=== PATIENT | female | born 1970 | race Caucasian/White ===

== ENCOUNTER → 2017-11-29 | Outpatient (CLI) | payer BC, OTHER ==
[~2017-11-29] MED LIST: CALC500C70 PO; IBUP-1428 PO; LRT5 PO; SIMV20TA2 PO; TOPI100T20 PO; TOPI200T14 PO
--- NOTE | 2017-11-29 15:53 | DIAGNOSTIC IMAGING REPORT ---
ABD/PELVIS WITHOUT FOR STONE CLINICAL HISTORY: 46 years-old Female presenting with RLQ ABD PAIN, HEMATURIA, HX OF STONES. TECHNIQUE: Multidetector CT of the abdomen and pelvis was performed without the use of intravenous contrast. IV contrast: None. A dose lowering technique was used consistent with the principles of ALARA (as low as reasonably achievable). COMPARISON: None. CT DOSE (mGy.cm): The estimated cumulative dose is 1055.84 mGycm. FINDINGS: Concrete Block Maker topogram: Unremarkable. Lung bases: Minimal basilar opacities, likely atelectasis. Normal heart size. No pericardial or pleural effusion. Liver: Normal morphology. Normal density. Biliary: No gross biliary ductal dilatation allowing for noncontrast technique. Normal gallbladder. Pancreas: Normal noncontrast appearance. Spleen: Normal noncontrast appearance. Adrenal glands: Normal noncontrast appearance. Kidneys and ureters: Normal noncontrast appearance. No nephrolithiasis. No hydronephrosis. Normal ureters. Bladder: Incompletely evaluated secondary to underdistention. Pelvic organs: Uterus surgically absent. No adnexal masses. Bowel: Intramural fat deposition in the rectum through the descending colon, nonspecific. The appendix is normal. Intramural fat deposition also noted in the terminal ileum. No bowel obstruction. Peritoneal cavity: No free fluid or intraperitoneal gas. Lymph nodes: No gross lymphadenopathy allowing for noncontrast technique. Vasculature: Atherosclerosis of the normal caliber abdominal aorta. Abdominal wall: Normal. Musculoskeletal: Normal. IMPRESSION: 1. No nephrolithiasis or hydronephrosis. No acute intra-abdominal pathology. 2. Nonspecific intramural fat deposition in the colon and terminal ileum. This can be seen in the setting of obesity, chronic exposure steroids, or chronic inflammation such as inflammatory bowel disease. Electronically signed by: Clyde Metzger M.D. 11/29/2017 3:52 PM Dictated Date/Time: 11/29/2017 3:47 PM
== END | disposition home or self-care (01) ==
LOC: C.CTS 15:24
PROVIDERS: ATTEND Family Medicine
DX: D17.9 Benign lipomatous neoplasm, unspecified (principal); R10.31 Right lower quadrant pain; R31.9 Hematuria, unspecified

== ENCOUNTER 2023-11-02 17:56 | Inpatient (IN) ==
--- NOTE | 2023-11-02 18:03 | ED Triage Note ---
Date of Service November 02, 2023 Provider in Triage Author: Rose Mary Rao History of Present Illness This patient was briefly evaluated while in triage. An abbreviated physical exam was performed. This patient is a 52-year-old Female who presents to the ED for evaluation of chest pain and SOB. Feels like her heart is racing as well. Symptoms started 5 days ago. Symptoms getting progressively worse. Had left calf pain a couple days before the symptoms started. On 10/04/23 she had surgery on the left foot. She was diagnosed with "complicated bronchitis" yesterday by her PCP and started on Zithromax and prednisone. She was taking Lovenox for 2 weeks post-op, but not on blood thinners now. Physical Exam GENERAL: Non-toxic and in no acute distress. HEENT: Pupils equal. No obvious scleral icterus. HEART: Tachycardic LUNGS: Clear to auscultation. No accessory muscle use. ABDOMEN: Soft, nontender. NEURO: Alert and oriented. No obvious neurological deficits on quick neuro exam. MUSCULOSKELETAL: Left lower extremity in a walking boot. The patient does have some tenderness over the area of the left calf that was able to be palpated with the walking boot in place. No tenderness to palpation of the right lower ext remity. Initial orders for labs and / or imaging were placed and patient was placed in the waiting area until a bed is available. Please see further documentation for the full ED course. MDM / Impression Impression Impression: Pulmonary embolism Impression: Pulmonary embolism Qualifiers: Pulmonary embolism type: unspecified Chronicity: acute Acute cor pulmonale presence: unspecified Qualified Code(s): I26.99 - Other pulmonary embolism without acute cor pulmonale
--- NOTE | 2023-11-02 18:32 | Emergency Department Note ---
Impression & Plan Pulmonary embolism ADMIT ED Provider Note HPI: History obtained from patient The patient is a 52-year-old female with history of asthma who presents the emergency department today with a chief complaint of palpitations and shortness of breath as well as mild chest pain. Patient states that the symptoms have been relatively constant for the past 6 days. Patient states that her symptoms do not seem to correlate at all with exertion. Patient does note that she had surgery on her left ankle on October 03 and is currently in a walking boot. On arrival here to the ED the patient is tachycardic at 140, blood pressure is noted to be hypertensive at 160/125, patient is saturating well on room air on arrival. Patient is afebrile on arrival. ROS: - Per HPI Differential Diagnosis: Pulmonary embolism, arrhythmia to include SVT, atrial fibrillation with RVR, acute coronary syndrome, critical electrolyte abnormalities to include hyperkalemia, hypomagnesemia, acute kidney injury/dehydration, pneumonia, CHF exacerbation, amongst other potential pathologies. *Outpatient medications and allergy history reviewed. PE: General: Alert HEENT: Normocephalic, trachea midline Eyes: Extraocular eye movement is intact, no scleral erythema Pulmonary: Clear to auscultation bilaterally, no wheezing Cardio: Tachycardic rate with regular rhythm GI: Abdomen is soft to palpation : No suprapubic tenderness MSK: Postop walking boot in place to the left lower extremity, no evidence of trauma or malformation of the extremities, no edema Skin: No evidence of rash Neuro: Alert, no focal deficits Psychiatric: Cooperative INDEPENDENT INTERPRETATIONS: monitoring specialist: (As interpreted by myself): - An order was placed for continuous cardiac monitoring - Patient was noted to be in sinus tachycardia with a rate of 120 EKG: (As interpreted by myself): Rate: 122 Rhythm: Sinus tachycardia Intervals: Within normal limits ST changes: No ST elevation Time: 1829 Chest x-ray: (As interpreted by myself): No acute disease Interventions provided in ED: -IV fluid bolus, IV heparin drip with bolus Medical Decision Making: IV was established and lab work obtained, patient was placed on monitoring specialist. Lab work shows leukocytosis at 14.48, hemoglobin is normal, platelet count is normal, CMP does not show any critical findings, no evidence of acute kidney injury. High-sensitivity troponin level was obtained and is elevated at 1355. EKG per my interpretation shows sinus tachycardia without any acute ischemic changes. Chest x-ray does not show any evidence of acute disease. CT angiography of the chest was obtained that does show evidence of bilateral pulmonary emboli with concern for right heart strain per the interpreting radiologist. On my reassessment the patient remains hemodynamically stable, heart rate has improved into the low 100s, blood pressure is stable, patient remains saturating well on room air. I discussed the above findings with the patient, patient expressed an agreement to the plan and an understanding of her diagnosis. Patient was placed on heparin drip and was ordered an IV heparin bolus as well. I discussed the case with the on-call hospitalist, Dr. Barrera, who is in agreement with the above plan and the patient was placed for admission in stable condition. Consultants/Discussions held with other healthcare providers: -Hospitalist, Dr. Barrera Disposition discussion held by myself with: -Patient and significant other at the bedside * CRITICAL CARE TIME: ( 45 ) minutes -Management of patient with bilateral pulmonary emboli with evidence of right heart strain and elevated troponin requiring initiation of a heparin drip, time spent at the bedside, interpretation of EKG and diagnostic studies, discussion with other healthcare providers and arrangement of admission Diagnosis: 1. Bilateral pulmonary emboli with evidence of right heart strain, acute 2. Elevated high-sensitivity troponin level, acute 3. Tachycardia, acute 4. Leukocytosis, acute, nonspecific 5. Dyspnea, acute 6. Chest pain, acute Disposition: Admission Champ Shen DO Emergency Medicine Past Med/Surg History Social History Smoking Status: Never smoker Feels Safe at Home: Yes Allergies Allergies Allergy/AdvReac Type Severity Reaction Status Date / Time chlor-prep Allergy Unknown Rash Uncoded 11/02/23 20:14 Home Meds Home Medications Medication Instructions Recorded Confirmed albuterol sulfate 90 mcg/actuation 2 puff inhalation Q6 PRN Shortness 11/02/23 11/02/23 aerosol inhaler Of Breath Or Wheezing alendronate 70 mg tablet 70 mg PO WK 11/02/23 11/02/23 atorvastatin 20 mg tablet 20 mg PO QPM 11/02/23 11/02/23 azithromycin 250 mg tablet 25 mg PO UD 11/02/23 11/02/23 cholecalciferol (vitamin D3) 25 50 mcg PO QPM 11/02/23 11/02/23 mcg (1,000 unit) tablet (Vitamin D3) gabapentin 100 mg capsule 200 mg PO BID 11/02/23 11/02/23 meloxicam 15 mg tablet 15 mg PO DAILY PRN Pain 11/02/23 11/02/23 montelukast 10 mg tablet 10 mg PO PM 11/02/23 11/02/23 prednisone 20 mg tablet 40 mg PO DAILY 11/02/23 11/02/23 Results & Data (ED) Vital Signs Vital Signs - 24 hr 11/02/23 17:59 11/02/23 18:38 11/02/23 18:42 Temperature 36.4 C L Temperature Source Temporal Artery Scan Pulse Rate 140 H 109 H Pulse Rate [Apical] Pulse Rhythm Regular Pulse Rhythm [Apical] Pulse Strength [Apical] Respiratory Rate 20 Respiratory Effort / Characteristics Non-Labored Spontaneous Respiratory Depth Normal Respiratory Pattern Blood Pressure 160/125 H Blood Pressure [Right Arm] Blood Pressure Mean 136 Blood Pressure Mean [Right Arm] Pulse Oximetry 95 98 Oxygen Delivery Method Room Air Room Air Sepsis Recent Fever Within 48 Hours No Sepsis New/Unexplained Change in Mental Status No Sepsis Action Taken by Nursing No Action Required 11/02/23 20:19 11/02/23 20:36 11/02/23 22:28 Temperature Temperature Source Pulse Rate 87 Pulse Rate [Apical] 103 H 96 H Pulse Rhythm Pulse Rhythm [Apical] Regular Regular Pulse Strength [Apical] Normal Normal Respiratory Rate 18 18 Respiratory Effort / Characteristics Non-Labored Spontaneous Non-Labored Spontaneous Respiratory Depth Normal Normal Respiratory Pattern Regular Regular Blood Pressure Blood Pressure [Right Arm] 109/90 113/97 Blood Pressure Mean Blood Pressure Mean [Right Arm] 96 102 Pulse Oximetry 95 93 Oxygen Delivery Method Room Air Room Air Sepsis Recent Fever Within 48 Hours Sepsis New/Unexplained Change in Mental Status Sepsis Action Taken by Nursing 11/02/23 22:41 Temperature Temperature Source Pulse Rate Pulse Rate [Apical] 95 H Pulse Rhythm Pulse Rhythm [Apical] Regular Pulse Strength [Apical] Normal Respiratory Rate 19 Respiratory Effort / Characteristics Non-Labored Spontaneous Respiratory Depth Normal Respiratory Pattern Regular Blood Pressure Blood Pressure [Right Arm] 123/91 Blood Pressure Mean Blood Pressure Mean [Right Arm] 101 Pulse Oximetry 93 Oxygen Delivery Method Room Air Sepsis Recent Fever Within 48 Hours Sepsis New/Unexplained Change in Mental Status Sepsis Action Taken by Nursing Laboratory Data 11/02/23 18:35 11/02/23 18:35 Lab Results 11/02/23 11/02/23 11/02/23 Range/Units 18:35 18:43 19:23 WBC 14.48 H (4.8-10.8) K/ul RBC 5.33 (4.20-5.40) M/uL Hgb 15.5 (12.0-16.0) g/dl POC Hgb 16.3 H (12.0-16.0) g/dl Hct 46.5 (37.0-47.0) % POC Hct 48 H (37-47) % MCV 87.2 (80.0-100.0) fL MCH 29.1 (25.0-34.0) pg MCHC 33.3 (32.0-36.0) g/dL RDW Std Deviation 45.3 (36.4-46.3) fL RDW Coeff of Larissa 14.3 (11.5-14.5) % Plt Count 290 (130-400) K/uL MPV 9.4 (9.4-12.4) fL Immature Gran % (Auto) 1.0 % Neut % (Auto) 84.1 % Lymph % (Auto) 8.6 % Woods % (Auto) 6.1 % Eos % (Auto) 0.0 % Baso % (Auto) 0.2 % Neut # (Auto) 12.18 H (1.40-6.50) K/uL Lymph # (Auto) 1.24 (1.20-3.40) K/uL Woods # (Auto) 0.88 H (0.11-0.59) K/uL Eos # (Auto) 0.00 (0.00-0.50) K/uL Baso # (Auto) 0.03 (0.00-0.20) K/uL Immature Gran # (Auto) 0.15 (0.01-0.20) K/uL PT 10.1 (9.0-12.0) Seconds INR 0.9 (0.9-1.1) APTT 24 (21-31) Seconds PTT Ratio 0.9 POC Sodium 137 (135-144) mmol/L Sodium 136 (136-145) mmol/L POC Potassium 4.3 (3.3-5.0) mmol/L Potassium 4.3 (3.5-5.1) mmol/L POC Chloride 103 (101-112) mmol/L Chloride 103 (98-107) mmol/L Carbon Dioxide 26 (21-32) mmol/L POC Total CO2 24 (24-31) mmol/L Anion Gap 7 (3-11) POC Anion Gap 16.0 (16-25) mmol/L POC BUN 16 (7-18) mg/dl BUN 18 (6-23) mg/dl Creatinine 0.88 (0.6-1.2) mg/dl POC Creatinine 0.8 (0.6-1.3) mg/dl Est Cr Clr Drug Dosing 72.3 ml/min Est GFR ( Amer) 86.9 ml/min Est GFR (Non-Af Amer) 75.0 ml/min BUN/Creatinine Ratio 20.5 H (10-20) Glucose 176 H (70-99(Fasting)) mg/dl POC Glucose (other) 180 H (70-99) mg/dl Estimat Average Glucose 128 mg/dl Hemoglobin A1c 6.1 H (4.5-5.6) % Calcium 9.7 (8.6-10.3) mg/dl POC Ioniz Calcium Anisha 1.27 (1.12-1.32) mmol/l Magnesium 2.4 (1.7-2.4) mg/dl Total Bilirubin 0.4 (0.2-1.0) mg/dl AST 24 (13-39) U/L ALT 29 (7-52) U/L Alkaline Phosphatase 65 (34-104) U/L Troponin I High Sens 1355.0 H* (0-14) pg/ml Total Protein 7.5 (6.0-8.3) gm/dl Albumin 4.1 (3.4-5.0) gm/dl Globulin 3.4 (2.5-4.0) gm/dl Albumin/Globulin Ratio 1.2 (0.9-2) Lipase 28 (11-82) U/L Urine Color Yellow Urine Appearance Clear (Clear) Urine pH 6.5 (4.5-7.5) Ur Specific Magnolia 1.015 (1.000-1.030) Urine Protein Negative (Negative) Urine Glucose (UA) Negative (Negative) Urine Ketones Negative (Negative) Urine Blood Trace H (Negative) Urine Nitrite Negative (Negative) Urine Bilirubin Negative (Negative) Urine Urobilinogen Negative (Negative) Ur Leukocyte Esterase Negative (Negative) Urine WBC (Auto) 0-5 (0-5) /hpf Urine RBC (Auto) 0-2 (0-2) /hpf U Hyaline Cast (Auto) 0-2 (0-2) /lpf U Epithel Cells (Auto) 0-2 (0-2) /hpf Urine Bacteria (Auto) None Seen (None Seen) 11/02/23 Range/Units 20:30 WBC (4.8-10.8) K/ul RBC (4.20-5.40) M/uL Hgb (12.0-16.0) g/dl POC Hgb (12.0-16.0) g/dl Hct (37.0-47.0) % POC Hct (37-47) % MCV (80.0-100.0) fL MCH (25.0-34.0) pg MCHC (32.0-36.0) g/dL RDW Std Deviation (36.4-46.3) fL RDW Coeff of Larissa (11.5-14.5) % Plt Count (130-400) K/uL MPV (9.4-12.4) fL Immature Gran % (Auto) % Neut % (Auto) % Lymph % (Auto) % Woods % (Auto) % Eos % (Auto) % Baso % (Auto) % Neut # (Auto) (1.40-6.50) K/uL Lymph # (Auto) (1.20-3.40) K/uL Woods # (Auto) (0.11-0.59) K/uL Eos # (Auto) (0.00-0.50) K/uL Baso # (Auto) (0.00-0.20) K/uL Immature Gran # (Auto) (0.01-0.20) K/uL PT (9.0-12.0) Seconds INR (0.9-1.1) APTT (21-31) Seconds PTT Ratio POC Sodium (135-144) mmol/L Sodium (136-145) mmol/L POC Potassium (3.3-5.0) mmol/L Potassium (3.5-5.1) mmol/L POC Chloride (101-112) mmol/L Chloride (98-107) mmol/L Carbon Dioxide (21-32) mmol/L POC Total CO2 (24-31) mmol/L Anion Gap (3-11) POC Anion Gap (16-25) mmol/L POC BUN (7-18) mg/dl BUN (6-23) mg/dl Creatinine (0.6-1.2) mg/dl POC Creatinine (0.6-1.3) mg/dl Est Cr Clr Drug Dosing ml/min Est GFR ( Amer) ml/min Est GFR (Non-Af Amer) ml/min BUN/Creatinine Ratio (10-20) Glucose (70-99(Fasting)) mg/dl POC Glucose (other) (70-99) mg/dl Estimat Average Glucose mg/dl Hemoglobin A1c (4.5-5.6) % Calcium (8.6-10.3) mg/dl POC Ioniz Calcium Anisha (1.12-1.32) mmol/l Magnesium (1.7-2.4) mg/dl Total Bilirubin (0.2-1.0) mg/dl AST (13-39) U/L ALT (7-52) U/L Alkaline Phosphatase (34-104) U/L Troponin I High Sens 1472.0 H* (0-14) pg/ml Total Protein (6.0-8.3) gm/dl Albumin (3.4-5.0) gm/dl Globulin (2.5-4.0) gm/dl Albumin/Globulin Ratio (0.9-2) Lipase (11-82) U/L Urine Color Urine Appearance (Clear) Urine pH (4.5-7.5) Ur Specific Magnolia (1.000-1.030) Urine Protein (Negative) Urine Glucose (UA) (Negative) Urine Ketones (Negative) Urine Blood (Negative) Urine Nitrite (Negative) Urine Bilirubin (Negative) Urine Urobilinogen (Negative) Ur Leukocyte Esterase (Negative) Urine WBC (Auto) (0-5) /hpf Urine RBC (Auto) (0-2) /hpf U Hyaline Cast (Auto) (0-2) /lpf U Epithel Cells (Auto) (0-2) /hpf Urine Bacteria (Auto) (None Seen) Administered Medications Heparin Sodium/Dextrose (Heparin Sodium/Dextrose) 25,000 units in 500 mls @ 22 mls/hr IV .[id number] [facility]; Protocol Stop: 12/02/23 20:14 Last Admin: 11/02/23 20:13 Dose: 1,100 units/hr, 22 mls/hr Documented By: SWEETIE Co-signed By: RUTH Sodium Chloride (Nss) 1,000 mls @ 80 mls/hr IV .[id number] ONE Stop: 11/03/23 08:52 Last Admin: 11/02/23 20:33 Dose: 80 mls/hr Documented By: SWEETIE Discontinued Medications Heparin Sodium (Porcine) (Heparin Sod (Porcine) 1000 Unit/Ml) 5,000 units IV NOW ONE Stop: 11/02/23 20:16 Last Admin: 11/02/23 20:13 Dose: 5,000 units Documented By: SWEETIE Co-signed By: RUTH Heparin Sodium/Dextrose (Heparin Iv Adult Wt-Based Standard W/ Initial Bolus Protocol) 1 each IV NOW STA; Protocol Stop: 11/02/23 19:55 Last Admin: 11/02/23 20:16 Dose: Not Given Documented By: SWEETIE Ioversol (Optiray 320 125ml) 119 ml IV ONCE ONE Stop: 11/02/23 19:17 Last Admin: 11/02/23 19:17 Dose: 119 ml Documented By: LEILA Tramadol HCl (Tramadol Hcl 50 Mg Tablet) 25 mg PO NOW STA Stop: 11/02/23 22:42 Last Admin: 11/02/23 23:03 Dose: 25 mg Documented By: SWEETIE Imaging Data Radiologist's Impression: Chest CTA 11/02/23 18:03 CT angio chest PE protocol CLINICAL HISTORY: Chest Pain, eval for PE TECHNIQUE: Multidetector row helical CT of the chest was performed with angiographic protocol. Coronal and sagittal reformations were obtained. Coronal and sagittal MIPS were obtained from the axial data set and were submitted for review. Automated dose lowering techniques and/or adjustment according to patient size were utilized for this exam. CT DOSE: 823.43 mGy.cm Comparison: Comparison is made to chest radiograph 11/02/2023 FINDINGS: Lungs and pleura: Normal. Heart and pericardium: There is enlargement of the right ventricle and reversal of the interventricular septum concerning for right heart strain. Vessels: Multifocal pulmonary emboli are seen in the bilateral main pulmonary arteries and their branches. Mediastinum and jeff: Unremarkable. Chest wall and lower neck: Small thyroid nodules are noted which do not require follow-up by ACR criteria. Abdomen: Unremarkable. Bones: Unremarkable. IMPRESSION: Large bilateral pulmonary emboli are seen involving the main pulmonary arteries and branches. There are findings concerning for right heart strain. ACT 112: Negative or not required by law. Electronically signed by: Jono Sandoval M.D. 11/02/2023 7:57 PM Chest X-Ray 11/02/23 18:03 XR chest 1V portable CLINICAL HISTORY: Chest pain, nonspecific TECHNIQUE: Single frontal radiograph of the chest was obtained. Comparison: None available at the time of this dictation. FINDINGS: No lines and tubes are seen. The cardiomediastinal silhouette is normal. The lungs are clear. No evidence of pleural effusion or pneumothorax. IMPRESSION: No acute chest disease. ACT 112: Negative or not required by law. Electronically signed by: Jono Sandoval M.D. 11/02/2023 7:13 PM Discharge Plan Visit Data Chief Complaint: Cardiac Assessment Stated Complaint: TACHYCARDIA, SOB, CHEST TIGHT ED Provider: Champ Shen Discharge Problem: Pulmonary embolism Discharge Problem: Pulmonary embolism Qualifiers: Pulmonary embolism type: unspecified Chronicity: acute Acute cor pulmonale presence: unspecified Qualified Code(s): I26.99 - Other pulmonary embolism without acute cor pulmonale
[2023-11-02 18:55] LABS: iSTAT Creatinine 0.8 mg/dl (0.6-1.3); iSTAT Hemoglobin 16.3 g/dl (12.0-16.0); iSTAT Ionized Calcium 1.27 mmol/l (1.12-1.32); iSTAT Potassium 4.3 mmol/L (3.3-5.0)
[2023-11-02 19:04] LABS: Basophils # (auto) 0.03 K/uL (0.00-0.20); Basophils % (auto) 0.2 %; Hematocrit (blood only) 46.5 % (37.0-47.0); Hemoglobin 15.5 g/dl (12.0-16.0); Immature Granulocytes # (auto) 0.15 K/uL (0.01-0.20); Lymphocytes # (auto) 1.24 K/uL (1.20-3.40); Lymphocytes % (auto) 8.6 %; Mean Corpuscular Hemoglobin 29.1 pg (25.0-34.0); Mean Corpuscular Hgb Conc 33.3 g/dL (32.0-36.0); Mean Corpuscular Volume 87.2 fL (80.0-100.0); Mean Platelet Volume 9.4 fL (9.4-12.4); Monocytes # (auto) 0.88 K/uL (0.11-0.59); Monocytes % (auto) 6.1 %; Neutrophils # (auto) 12.18 K/uL (1.40-6.50); Neutrophils % (auto) 84.1 %; Platelet Count 290 K/uL (130-400); RDW Coefficient of Variation 14.3 % (11.5-14.5); RDW Standard Deviation 45.3 fL (36.4-46.3); Red Blood Count 5.33 M/uL (4.20-5.40); White Blood Count 14.48 K/ul (4.8-10.8)
--- NOTE | 2023-11-02 19:14 | XRay Report ---
XR chest 1V portable CLINICAL HISTORY: Chest pain, nonspecific TECHNIQUE: Single frontal radiograph of the chest was obtained. Comparison: None available at the time of this dictation. FINDINGS: No lines and tubes are seen. The cardiomediastinal silhouette is normal. The lungs are clear. No evid ence of pleural effusion or pneumothorax. IMPRESSION: No acute chest disease. ACT 112: Negative or not required by law. Electronically signed by: Jono Sandoval M.D. 11/02/2023 7:13 PM
[2023-11-02 19:15] LABS: INR 0.9 (0.9-1.1); Partial Thromboplastin Ratio 0.9; Partial Thromboplastin Time 24 Seconds (21-31); Prothrombin Time 10.1 Seconds (9.0-12.0)
[2023-11-02 19:17] LABS: Albumin Globulin Ratio 1.2 (0.9-2); Albumin Level 4.1 gm/dl (3.4-5.0); BUN Creatinine Ratio 20.5 (10-20); Bilirubin,Total 0.4 mg/dl (0.2-1.0); Calcium 9.7 mg/dl (8.6-10.3); Creatinine Clr Calc Pharmacy 72.3 ml/min; Est GFR (African American) 86.9 ml/min; Globulin 3.4 gm/dl (2.5-4.0); Magnesium 2.4 mg/dl (1.7-2.4); Potassium 4.3 mmol/L (3.5-5.1); Total Protein 7.5 gm/dl (6.0-8.3)
[2023-11-02] MEDS: OPTIRAY 320 125ml IV ONE (19:17)
--- NOTE | 2023-11-02 20:00 | CT Scan Report ---
CT angio chest PE protocol CLINICAL HISTORY: Chest Pain, eval for PE TECHNIQUE: Multidetector row helical CT of the chest was performed with angiographic protocol. Long l and sagittal reformations were obtained. Coronal and sagittal MIPS were obtained from the axial heath a set and were submitted for review. Automated dose lowering techniques and/or adjustment according to patient size were utilized for this exam. CT DOSE: 823.43 mGy.cm Comparison: Comparison is made to chest radiograph 11/02/2023 FINDINGS: Lungs and pleura: Normal. Heart and pericardium: There is enlargement of the right ventricle and reversal of the interventricul ar septum concerning for right heart strain. Vessels: Multifocal pulmonary emboli are seen in the bilateral main pulmonary arteries and their bran ches. Mediastinum and jeff: Unremarkable. Chest wall and lower neck: Small thyroid nodules are noted which do not require follow-up by ACR milad moore. Abdomen: Unremarkable. Bones: Unremarkable. IMPRESSION: Large bilateral pulmonary emboli are seen involving the main pulmonary arteries and branches. There a re findings concerning for right heart strain. ACT 112: Negative or not required by law. Electronically signed by: Jono Sandoval M.D. 11/02/2023 7:57 PM
[2023-11-02] MEDS ORDERED: HEPARIN SOD (PORCINE) 1000 UNIT/ML IV ONE (20:10)
[2023-11-02] MEDS: HEPARIN SODIUM/DEXTROSE 25,000 UNITS/500 ML BAG IV SCH (20:13)
[2023-11-02] MEDS: HEPARIN SOD (PORCINE) 1000 UNIT/ML IV ONE (20:13)
[2023-11-02] MEDS: Heparin IV Adult Wt-Based Standard w/ INITIAL Bolus Protocol IV STA (20:16)
[2023-11-02 20:33] LABS: Appearance Urine Clear (Clear); Bacteria Urine Automated None Seen (None Seen); Bilirubin Urine Negative (Negative); Blood Urine Trace (Negative); Cast Urine Automated 0-2 /lpf (0-2); Color Urine Yellow; Epithelial Cell Urine Auto 0-2 /hpf (0-2); Glucose Urine UA Negative (Negative); Ketones Urine Negative (Negative); Leukocyte Esterase Urine Negative (Negative); Nitrite Urine Negative (Negative); Protein Urine Negative (Negative); RBC Urine Automated 0-2 /hpf (0-2); Specific Gravity Urine 1.015 (1.000-1.030); Urobilinogen Urine Negative (Negative); WBC Urine Automated 0-5 /hpf (0-5); pH Urine 6.5 (4.5-7.5)
[2023-11-02] MEDS: SODIUM CHLORIDE 0.9% 1,000 ML IV ONE (20:33)
[2023-11-02 21:47] LABS: Estimated Average Glucose 128 mg/dl; Hemoglobin A1C 6.1 % (4.5-5.6)
[2023-11-02 22:03] LABS: Adenovirus PCR Not Detected (NotDetected); Bordetella parapertussis PCR Not Detected (NotDetected); Bordetella pertussis PCR Not Detected (NotDetected); Chlamydia pneumoniae PCR Not Detected (NotDetected); Coronavirus 229E PCR Not Detected (NotDetected); Coronavirus CoV-2 (COVID19)PCR Not Detected (NotDetected); Coronavirus HKU1 PCR Not Detected (NotDetected); Coronavirus NL63 PCR Not Detected (NotDetected); Coronavirus OC43PCR Not Detected (NotDetected); Human Metapneumovirus PCR Not Detected (NotDetected); Influenza A PCR Not Detected (NotDetected); Influenza B PCR Not Detected (NotDetected); Mycoplasma pneumoniae PCR Not Detected (NotDetected); Parainfluenza Virus 1 PCR Not Detected (NotDetected); Parainfluenza Virus 2 PCR Not Detected (NotDetected); Parainfluenza Virus 3 PCR Not Detected (NotDetected); Parainfluenza Virus 4 PCR Not Detected (NotDetected); Respiratory Syncytial VirusPCR Not Detected (NotDetected); Rhinovirus/Enterovirus PCR Not Detected (NotDetected)
--- NOTE | 2023-11-02 22:47 | History & Physical Report ---
Date of Service November 02, 2023 Assessment & Plan (1) Pulmonary embolism: Plan: PE with strain Initial occurrence Provoked event given recent ankle surgery Low risk on PESI score Rule out LE clot as source Troponin elevation secondary to above hyperlipidemia, statin Rx bronchial asthma, symptoms initially attributed to possible asthma exacerbation. Prediabetes, hemoglobin A1c of 6.1 today past tobacco abuse PCU IV heparin Follow troponin TTE re: PE with strain Follow LE venous Dopplers Pulmonary consult re: PE with strain Stop outpatient Z-Jovany and prednisone course prescribed for possible asthma exacerbation DVT prophylaxis. Heparin Full code Text document was generated using [employer] voice recognition software. It may contain grammatical or spelling errors. Kindly contact undersigned for clarification of any documentation item in q uestion. History of Present Illness Chief Complaint: chest pain, palpitations, shortness of breath Primary Care Provider: Dr. Maria Fernanda Pisano History obtained from patient, family, and records. Medical history significant for hyperlipidemia, bronchial asthma, prediabetes, IBS, neuropathy as per records, past tobacco abuse. Patient underwent left ankle surgery at the [facility] in [place] last month. Trying to keep active as possible despite some limitations. Patient completed 2 weeks of Lovenox injections for DVT prophylaxis as per her account. 1 week history of chest tightness, some wheezing, palpitations, and elevated heart rate at home. No actual cough symptoms as per patient. Patient thought it might be an unusual asthma attack. No unusual leg swelling. Patient seen at PCPs office yesterday. Prednisone and Z-Jovany course prescribed for possible complicated bronchitis. Patient consulted ER for worsening symptoms. IV heparin initiated at the ER for PE with strain. No prior personal history/known family history of blood clots as per patient. Medical History as above Surgical History : [place], foot surgery Family History : Negative blood clots; alcoholism, bronchial asthma, DM, stroke Personal/Social history : Past tobacco abuse, rare EtOH intake, office work Allergies Allergy/AdvReac Type Severity Reaction Status Date / Time chlor-prep Allergy Unknown Rash Uncoded 11/02/23 20:14 Home Medications Medication Instructions Recorded Confirmed Type albuterol sulfate 90 mcg/actuation 2 puff inhalation Q6 PRN Shortness 11/02/23 11/02/23 History aerosol inhaler Of Breath Or Wheezing alendronate 70 mg tablet 70 mg PO WK 11/02/23 11/02/23 History atorvastatin 20 mg tablet 20 mg PO QPM 11/02/23 11/02/23 History azithromycin 250 mg tablet 25 mg PO UD 11/02/23 11/02/23 History cholecalciferol (vitamin D3) 25 50 mcg PO QPM 11/02/23 11/02/23 History mcg (1,000 unit) tablet (Vitamin D3) gabapentin 100 mg capsule 200 mg PO BID 11/02/23 11/02/23 History meloxicam 15 mg tablet 15 mg PO DAILY PRN Pain 11/02/23 11/02/23 History montelukast 10 mg tablet 10 mg PO PM 11/02/23 11/02/23 History prednisone 20 mg tablet 40 mg PO DAILY 11/02/23 11/02/23 History apixaban 5 mg tablet 5 mg PO BID #74 tabs 11/03/23 Rx Past Med/Surg History Social History Smoking Status: Never smoker Second Hand Exposure: No; Do You Dip or Chew Tobacco: No; Tobacco Cessation Education Requested by Patient: No Hx Alcohol Use: Yes Hx Substance Use: No Preferred Language: Bhutanese Communication Ability: Effective Gym Teacher Required: No Beliefs That Will Affect Care: None Current Living Situation: Spouse Other Information That Helps Us Care for You: No Feels Safe at Home: Yes Safety Concerns: Feels Safe At This Time Assistive Devices: Brace/Splint/Immobilizer and Crutches Review of Systems Review of Systems: As per HPI, all other systems reviewed and negative Physical Exam Physical Exam: GENERAL: Comfortable, pleasant, obese, slightly anxious, no respiratory distress SKIN: Normal color, warm HEENT: [place] palpebral conjunctivae, no ptosis, moist buccal mucosa NECK : Supple, no tenderness CHEST : CTA, no tenderness HEART : RRR, no obvious murmurs ABDOMEN: Some distention, nontender EXTREMITIES : No LE swelling, minimal LLE tenderness, no other conspicuous deformities noted NEUROLOGIC : Coherent, no facial asymmetry, no other gross focality Results & Data Results & Data Vital Signs (Past 12 Hours) Vital Signs Temp Pulse Pulse Resp BP BP Pulse Ox 11/02/23 22:41 95 H 19 123/91 93 11/02/23 22:28 87 11/02/23 20:36 96 H 18 113/97 93 11/02/23 20:19 103 H 18 109/90 95 11/02/23 18:42 98 11/02/23 18:38 109 H 11/02/23 17:59 36.4 C L 140 H 20 160/125 H 95 O2 Del Method 11/02/23 22:41 Room Air 11/02/23 22:28 11/02/23 20:36 Room Air 11/02/23 20:19 Room Air 11/02/23 18:42 Room Air 11/02/23 18:38 11/02/23 17:59 Room Air Laboratory Results Laboratory Results WBC 14.48 K/ul (4.8-10.8) H 11/02/23 18:35 RBC 5.33 M/uL (4.20-5.40) 11/02/23 18:35 Hgb 15.5 g/dl (12.0-16.0) 11/02/23 18:35 POC Hgb 16.3 g/dl (12.0-16.0) H 11/02/23 18:43 Hct 46.5 % (37.0-47.0) 11/02/23 18:35 POC Hct 48 % (37-47) H 11/02/23 18:43 MCV 87.2 fL (80.0-100.0) 11/02/23 18:35 MCH 29.1 pg (25.0-34.0) 11/02/23 18:35 MCHC 33.3 g/dL (32.0-36.0) 11/02/23 18:35 RDW Std Deviation 45.3 fL (36.4-46.3) 11/02/23 18:35 RDW Coeff of Larissa 14.3 % (11.5-14.5) 11/02/23 18:35 Plt Count 290 K/uL (130-400) 11/02/23 18:35 MPV 9.4 fL (9.4-12.4) 11/02/23 18:35 Immature Gran % (Auto) 1.0 % 11/02/23 18:35 Neut % (Auto) 84.1 % 11/02/23 18:35 Lymph % (Auto) 8.6 % 11/02/23 18:35 Jack % (Auto) 6.1 % 11/02/23 18:35 Eos % (Auto) 0.0 % 11/02/23 18:35 Baso % (Auto) 0.2 % 11/02/23 18:35 Neut # (Auto) 12.18 K/uL (1.40-6.50) H 11/02/23 18:35 Lymph # (Auto) 1.24 K/uL (1.20-3.40) 11/02/23 18:35 Jack # (Auto) 0.88 K/uL (0.11-0.59) H 11/02/23 18:35 Eos # (Auto) 0.00 K/uL (0.00-0.50) 11/02/23 18:35 Baso # (Auto) 0.03 K/uL (0.00-0.20) 11/02/23 18:35 Immature Gran # (Auto) 0.15 K/uL (0.01-0.20) 11/02/23 18:35 PT 10.1 Seconds (9.0-12.0) 11/02/23 18:35 INR 0.9 (0.9-1.1) 11/02/23 18:35 APTT 24 Seconds (21-31) 11/02/23 18:35 PTT Ratio 0.9 11/02/23 18:35 POC Sodium 137 mmol/L (135-144) 11/02/23 18:43 Sodium 136 mmol/L (136-145) 11/02/23 18:35 POC Potassium 4.3 mmol/L (3.3-5.0) 11/02/23 18:43 Potassium 4.3 mmol/L (3.5-5.1) 11/02/23 18:35 POC Chloride 103 mmol/L (101-112) 11/02/23 18:43 Chloride 103 mmol/L (98-107) 11/02/23 18:35 Carbon Dioxide 26 mmol/L (21-32) 11/02/23 18:35 POC Total CO2 24 mmol/L (24-31) 11/02/23 18:43 Anion Gap 7 (3-11) 11/02/23 18:35 POC Anion Gap 16.0 mmol/L (16-25) 11/02/23 18:43 POC BUN 16 mg/dl (7-18) 11/02/23 18:43 BUN 18 mg/dl (6-23) 11/02/23 18:35 Creatinine 0.88 mg/dl (0.6-1.2) 11/02/23 18:35 POC Creatinine 0.8 mg/dl (0.6-1.3) 11/02/23 18:43 Est Cr Clr Drug Dosing 72.3 ml/min 11/02/23 18:35 Est GFR ( Amer) 86.9 ml/min 11/02/23 18:35 Est GFR (Non-Af Amer) 75.0 ml/min 11/02/23 18:35 BUN/Creatinine Ratio 20.5 (10-20) H 11/02/23 18:35 Glucose 176 mg/dl (70-99(Fasting)) H 11/02/23 18:35 POC Glucose (other) 180 mg/dl (70-99) H 11/02/23 18:43 Estimat Average Glucose 128 mg/dl 11/02/23 18:35 Hemoglobin A1c 6.1 % (4.5-5.6) H 11/02/23 18:35 Calcium 9.7 mg/dl (8.6-10.3) 11/02/23 18:35 POC Ioniz Calcium Anisha 1.27 mmol/l (1.12-1.32) 11/02/23 18:43 Magnesium 2.4 mg/dl (1.7-2.4) 11/02/23 18:35 Total Bilirubin 0.4 mg/dl (0.2-1.0) 11/02/23 18:35 AST 24 U/L (13-39) 11/02/23 18:35 ALT 29 U/L (7-52) 11/02/23 18:35 Alkaline Phosphatase 65 U/L (34-104) 11/02/23 18:35 Troponin I High Sens 1472.0 pg/ml (0-14) H* 11/02/23 20:30 Total Protein 7.5 gm/dl (6.0-8.3) 11/02/23 18:35 Albumin 4.1 gm/dl (3.4-5.0) 11/02/23 18:35 Globulin 3.4 gm/dl (2.5-4.0) 11/02/23 18:35 Albumin/Globulin Ratio 1.2 (0.9-2) 11/02/23 18:35 Lipase 28 U/L (11-82) 11/02/23 18:35 Urine Color Yellow 11/02/23 19:23 Urine Appearance Clear (Clear) 11/02/23 19:23 Urine pH 6.5 (4.5-7.5) 11/02/23 19:23 Ur Specific [place] 1.015 (1.000-1.030) 11/02/23 19:23 Urine Protein Negative (Negative) 11/02/23 19:23 Urine Glucose (UA) Negative (Negative) 11/02/23 19:23 Urine Ketones Negative (Negative) 11/02/23 19:23 Urine Blood Trace (Negative) H 11/02/23 19:23 Urine Nitrite Negative (Negative) 11/02/23 19:23 Urine Bilirubin Negative (Negative) 11/02/23 19:23 Urine Urobilinogen Negative (Negative) 11/02/23 19:23 Ur Leukocyte Esterase Negative (Negative) 11/02/23 19:23 Urine WBC (Auto) 0-5 /hpf (0-5) 11/02/23 19:23 Urine RBC (Auto) 0-2 /hpf (0-2) 11/02/23 19:23 U Hyaline Cast (Auto) 0-2 /lpf (0-2) 11/02/23 19:23 U Epithel Cells (Auto) 0-2 /hpf (0-2) 11/02/23 19:23 Urine Bacteria (Auto) None Seen (None Seen) 11/02/23 19:23 Adenovirus (PCR) Not Detected (NotDetected) 11/02/23 Unknown B. pertussis DNA (PCR) Not Detected (NotDetected) 11/02/23 Unknown B.parapertussis DNA PCR Not Detected (NotDetected) 11/02/23 Unknown C. pneumoniae DNA (PCR) Not Detected (NotDetected) 11/02/23 Unknown Coronavirus OC43 (PCR) Not Detected (NotDetected) 11/02/23 Unknown Coronavirus HKU1 (PCR) Not Detected (NotDetected) 11/02/23 Unknown Coronavirus 229E (PCR) Not Detected (NotDetected) 11/02/23 Unknown SARS-CoV-2 (PCR) Not Detected (NotDetected) 11/02/23 Unknown Coronavirus NL63 (PCR) Not Detected (NotDetected) 11/02/23 Unknown Human Metapneumovir PCR Not Detected (NotDetected) 11/02/23 Unknown Influenza Type A (PCR) Not Detected (NotDetected) 11/02/23 Unknown Influenza Type B (PCR) Not Detected (NotDetected) 11/02/23 Unknown M. pneumoniae (PCR) Not Detected (NotDetected) 11/02/23 Unknown Parainfluenza 1 (PCR) Not Detected (NotDetected) 11/02/23 Unknown Parainfluenza 2 (PCR) Not Detected (NotDetected) 11/02/23 Unknown Parainfluenza 3 (PCR) Not Detected (NotDetected) 11/02/23 Unknown Parainfluenza 4 (PCR) Not Detected (NotDetected) 11/02/23 Unknown RSV (PCR) Not Detected (NotDetected) 11/02/23 Unknown Entero/Rhino (PCR) Not Detected (NotDetected) 11/02/23 Unknown Impressions Chest CTA 11/02/23 18:03 CT angio chest PE protocol CLINICAL HISTORY: Chest Pain, eval for PE TECHNIQUE: Multidetector row helical CT of the chest was performed with angiographic protocol. Coronal and sagittal reformations were obtained. Coronal and sagittal MIPS were obtained from the axial data set and were submitted for review. Automated dose lowering techniques and/or adjustment according to patient size were utilized for this exam. CT DOSE: 823.43 mGy.cm Comparison: Comparison is made to chest radiograph 11/02/2023 FINDINGS: Lungs and pleura: Normal. Heart and pericardium: There is enlargement of the right ventricle and reversal of the interventricular septum concerning for right heart strain. Vessels: Multifocal pulmonary emboli are seen in the bilateral main pulmonary arteries and their branches. Mediastinum and jeff: Unremarkable. Chest wall and lower neck: Small thyroid nodules are noted which do not require follow-up by ACR criteria. Abdomen: Unremarkable. Bones: Unremarkable. IMPRESSION: Large bilateral pulmonary emboli are seen involving the main pulmonary arteries and branches. There are findings concerning for right heart strain. ACT 112: Negative or not required by law. Electronically signed by: Jono Sandoval M.D. 11/02/2023 7:57 PM Chest X-Ray 11/02/23 18:03 XR chest 1V portable CLINICAL HISTORY: Chest pain, nonspecific TECHNIQUE: Single frontal radiograph of the chest was obtained. Comparison: None available at the time of this dictation. FINDINGS: No lines and tubes are seen. The cardiomediastinal silhouette is normal. The lungs are clear. No evidence of pleural effusion or pneumothorax. IMPRESSION: No acute chest disease. ACT 112: Negative or not required by law. Electronically signed by: Jono Sandoval M.D. 11/02/2023 7:13 PM Diagnostic Findings EKG as per my interpretation : Rate 120, sinus tachycardia, LAD, LAFB, incomplete RBB, inferior infarct, no ischemia (1) Pulmonary embolism Acute cor pulmonale presence: unspecified Chronicity: acute Pulmonary embolism type: unspecified Qualified Code(s): I26.99 - Other pulmonary embolism without acute cor pulmonale
[2023-11-02] MEDS ORDERED: PROMETHAZINE HCL 12.5 MG in SODIUM CHLORIDE 0.9% 50 ML IV PRN (22:50)
[2023-11-02] MEDS ORDERED: LORazepam 0.5 MG TAB PO PRN (22:50)
[2023-11-02] MEDS ORDERED: ACETAMINOPHEN 325 MG TAB PO PRN (22:50)
[2023-11-02] MEDS: traMADol HCL 50 MG TABLET PO STA (23:03)
--- NOTE | 2023-11-02 23:28 | Ultrasound Report ---
Exam(s): US VENOUS LEFT LOWER EXTREMITY EXAM: US Duplex Left Lower Extremity Veins CLINICAL HISTORY: Reason for exam: Calf pain, recent surgery, eval DVT. TECHNIQUE: Real-time duplex ultrasound scan of the left lower extremity veins integrating B-mode two-dimensional vascular structure, Doppler spectral analysis, color flow Doppler imaging and compression. COMPARISON: None. FINDINGS: Deep veins: Minimally compressible left popliteal vein, peroneal veins and posterior tibial veins with internal echoes and trace flow consistent with nearly occlusive deep venous thrombosis. Superficial veins: Unremarkable. No thrombus in the visualized great saphenous vein. Soft tissues: No acute findings. No popliteal cyst. IMPRESSION: Nearly occlusive deep venous thrombosis involving the left lower extremity. Electronically signed by: Nelida Sparks MD 11/02/23 23:27 PM
[2023-11-03] MEDS: GABAPENTIN 100 MG CAP PO SCH (00:52)
[2023-11-03] MEDS: ACETAMINOPHEN 325 MG TAB PO PRN (01:41)
[2023-11-03 02:31] LABS: Basophils # (auto) 0.03 K/uL (0.00-0.20); Basophils % (auto) 0.2 %; Eosinophils # (auto) 0.01 K/uL (0.00-0.50); Eosinophils % (auto) 0.1 %; Hematocrit (blood only) 39.9 % (37.0-47.0); Immature Granulocytes # (auto) 0.13 K/uL (0.01-0.20); Immature Granulocytes % (auto) 0.8 %; Lymphocytes # (auto) 2.72 K/uL (1.20-3.40); Mean Corpuscular Hemoglobin 29.7 pg (25.0-34.0); Mean Corpuscular Hgb Conc 35.1 g/dL (32.0-36.0); Mean Corpuscular Volume 84.7 fL (80.0-100.0); Mean Platelet Volume 9.2 fL (9.4-12.4); Monocytes # (auto) 1.06 K/uL (0.11-0.59); Monocytes % (auto) 6.6 %; Neutrophils # (auto) 12.02 K/uL (1.40-6.50); Neutrophils % (auto) 75.3 %; Platelet Count 250 K/uL (130-400); RDW Coefficient of Variation 14.4 % (11.5-14.5); RDW Standard Deviation 44.1 fL (36.4-46.3); Red Blood Count 4.71 M/uL (4.20-5.40); White Blood Count 15.97 K/ul (4.8-10.8)
[2023-11-03 02:47] LABS: BUN Creatinine Ratio 20.7 (10-20); Calcium 8.4 mg/dl (8.6-10.3); Creatinine Clr Calc Pharmacy 108.7 ml/min; Est GFR (Non-African American) 105.2 ml/min; Potassium 3.8 mmol/L (3.5-5.1)
[2023-11-03 02:56] LABS: Troponin I High Sensitivity 871.6 pg/ml (0-14)
[2023-11-03] MEDS: traMADol HCL 50 MG TABLET PO PRN (03:11)
[2023-11-03 04:00] LABS: ANTI-Xa, UFH(UnfractionatedHep 1.14 IU/ml (0.3-0.7)
[2023-11-03 06:50] LABS: ANTI-Xa, UFH(UnfractionatedHep 0.48 IU/ml (0.3-0.7)
--- NOTE | 2023-11-03 07:16 | Hospitalist Progress Note ---
Date of Service November 03, 2023 Assessment & Plan (1) Pulmonary embolism: (2) DVT (deep venous thrombosis): (3) Asthma: Plan Patient with history of exercise induced asthma, prediabetes with neuropathy, IBS and recent left ankle procedure at [facility] on 10/03 who is admitted for gabriela luation and management of bilateral pulmonary emboli with concerns for right heart strain. Imaging revealed near occlusive DVT of left deep veins in lower extremity. #Bilateral Pulmonary Emboli with c/f right heart strain #Left Lower extremity DVT BNP 325 ECHO pending Heparin drip ongoing Pulmonary consult -Plan for 3-6 months AC upon discharge -Follow up ECHO Send for apixaban #Sinus Tachycardia #Elevated Troponin, likely demand ischemia 2/2 pulmonary emboli Troponin elevated 1472-->871.6 No acute concerns for ACS at this time #Asthma Stable albuterol prn #Prediabetes A1C 11/02 6.1% Counseled on lifestyle, reports improving exercise once ankle/mobility improved #Neuropathy Continue gabapentin 200mg BID #HLD continue statin DVT Heparin Monitor on Telemetry Admission and Anticipated Discharge Date Admission Date: November 02, 2023 Subjective NAEO Denies any chest pain, but notes significant SOB/LUNA at this time with palpitations States she had left ankle surgery on 10/03 and has been using knee scooter and recently transitioned to crutches on Wednesday Physical Exam Constitutional: WD/WN, vitals as above Respiratory: normal respiratory effort, lungs clear to auscultation Cardiovascular: tachycardia Skin: left lateral ankle surgical incision, well approximated, healing no signs of superimposed infection Results & Data Results & Data Vital Signs (Past 12 Hours) Vital Signs Temp Pulse Pulse Resp BP BP Pulse Ox 11/03/23 02:59 36.4 C L 88 16 127/85 94 11/02/23 23:50 36.5 C 88 16 136/90 93 11/02/23 23:05 96 11/02/23 23:03 90 18 125/92 95 11/02/23 22:41 95 H 19 123/91 93 11/02/23 22:28 87 11/02/23 20:36 96 H 18 113/97 93 11/02/23 20:19 103 H 18 109/90 95 O2 Del Method 11/03/23 02:59 Room Air 11/02/23 23:50 Room Air 11/02/23 23:05 Room Air 11/02/23 23:03 Room Air 11/02/23 22:41 Room Air 11/02/23 22:28 11/02/23 20:36 Room Air 11/02/23 20:19 Room Air Laboratory Results Short CBC 11/02/23 11/03/23 Range/Units 18:35 02:12 WBC 14.48 H 15.97 H (4.8-10.8) K/ul Hgb 15.5 14.0 (12.0-16.0) g/dl Hct 46.5 39.9 (37.0-47.0) % Plt Count 290 250 (130-400) K/uL BMP 11/02/23 11/03/23 18:35 02:12 Sodium 136 136 Potassium 4.3 3.8 Chloride 103 106 Carbon Dioxide 26 23 BUN 18 12 Creatinine 0.88 0.58 L D Glucose 176 H 142 H Calcium 9.7 8.4 L Liver Function 11/02/23 Range/Units 18:35 Total Bilirubin 0.4 (0.2-1.0) mg/dl AST 24 (13-39) U/L ALT 29 (7-52) U/L Alkaline Phosphatase 65 (34-104) U/L Albumin 4.1 (3.4-5.0) gm/dl Urine 11/02/23 Range/Units 19:23 Urine Color Yellow Urine Appearance Clear (Clear) Urine pH 6.5 (4.5-7.5) Ur Specific [place] 1.015 (1.000-1.030) Urine Protein Negative (Negative) Urine Glucose (UA) Negative (Negative) Diagnostic Findings Chest CTA 11/02/23 18:03 CT angio chest PE protocol CLINICAL HISTORY: Chest Pain, eval for PE TECHNIQUE: Multidetector row helical CT of the chest was performed with angiographic protocol. Coronal and sagittal reformations were obtained. Coronal and sagittal MIPS were obtained from the axial data set and were submitted for review. Automated dose lowering techniques and/or adjustment according to patient size were utilized for this exam. CT DOSE: 823.43 mGy.cm Comparison: Comparison is made to chest radiograph 11/02/2023 FINDINGS: Lungs and pleura: Normal. Heart and pericardium: There is enlargement of the right ventricle and reversal of the interventricular septum concerning for right heart strain. Vessels: Multifocal pulmonary emboli are seen in the bilateral main pulmonary arteries and their branches. Mediastinum and jeff: Unremarkable. Chest wall and lower neck: Small thyroid nodules are noted which do not require follow-up by ACR criteria. Abdomen: Unremarkable. Bones: Unremarkable. IMPRESSION: Large bilateral pulmonary emboli are seen involving the main pulmonary arteries and branches. There are findings concerning for right heart strain. ACT 112: Negative or not required by law. Electronically signed by: Jono Sandoval M.D. 11/02/2023 7:57 PM Chest X-Ray 11/02/23 18:03 XR chest 1V portable CLINICAL HISTORY: Chest pain, nonspecific TECHNIQUE: Single frontal radiograph of the chest was obtained. Comparison: None available at the time of this dictation. FINDINGS: No lines and tubes are seen. The cardiomediastinal silhouette is normal. The lungs are clear. No evidence of pleural effusion or pneumothorax. IMPRESSION: No acute chest disease. ACT 112: Negative or not required by law. Electronically signed by: Jono Sandoval M.D. 11/02/2023 7:13 PM Venous Doppler Study 11/02/23 18:03 Exam(s): US VENOUS LEFT LOWER EXTREMITY EXAM: US Duplex Left Lower Extremity Veins CLINICAL HISTORY: Reason for exam: Calf pain, recent surgery, eval DVT. TECHNIQUE: Real-time duplex ultrasound scan of the left lower extremity veins integrating B-mode two-dimensional vascular structure, Doppler spectral analysis, color flow Doppler imaging and compression. COMPARISON: None. FINDINGS: Deep veins: Minimally compressible left popliteal vein, peroneal veins and posterior tibial veins with internal echoes and trace flow consistent with nearly occlusive deep venous thrombosis. Superficial veins: Unremarkable. No thrombus in the visualized great saphenous vein. Soft tissues: No acute findings. No popliteal cyst. IMPRESSION: Nearly occlusive deep venous thrombosis involving the left lower extremity. Electronically signed by: Nelida Sparks MD 11/02/23 23:27 PM Medications Administered Home Medications Medication Instructions Recorded Confirmed Last Taken albuterol sulfate 90 mcg/actuation 2 puff inhalation Q6 PRN Shortness 11/02/23 11/02/23 11/02/23 aerosol inhaler Of Breath Or Wheezing alendronate 70 mg tablet 70 mg PO WK 11/02/23 11/02/23 10/30/23 atorvastatin 20 mg tablet 20 mg PO QPM 04/04/1811/02/23 11/01/23 azithromycin 250 mg tablet 25 mg PO UD 11/02/23 11/02/23 11/02/23 cholecalciferol (vitamin D3) 25 50 mcg PO QPM 11/02/23 11/02/23 11/01/23 mcg (1,000 unit) tablet (Vitamin D3) gabapentin 100 mg capsule 200 mg PO BID 11/02/23 11/02/23 11/02/23 am dose meloxicam 15 mg tablet 15 mg PO DAILY PRN Pain 11/02/23 11/02/23 Unknown montelukast 10 mg tablet 10 mg PO PM 11/02/23 11/02/23 11/01/23 prednisone 20 mg tablet 40 mg PO DAILY 11/02/23 11/02/23 11/02/23 Active Medications Generic Name Dose Route Start Last Admin Trade Name Freq PRN Reason Stop Dose Admin Acetaminophen 650 mg 11/02/23 23:50 11/03/23 01:41 Acetaminophen 325 Mg Tab PO 12/02/23 23:49 650 mg Q4H PRN Administration Pain or Fever Gabapentin 200 mg 11/02/23 23:50 11/03/23 00:52 Gabapentin 100 Mg Cap PO 12/02/23 23:49 200 mg BID ELISSA Administration Heparin Sodium/Dextrose 25,000 units in 500 mls @ 22 mls/hr 11/02/23 20:15 11/03/23 07:00 Heparin Sodium/Dextrose IV 12/02/23 20:14 800 units/hr .[id number] ELISSA 16 mls/hr Titration Protocol 1,100 UNITS/HR Sodium Chloride 1,000 mls @ 80 mls/hr 11/02/23 20:23 11/02/23 20:33 Nss IV 11/03/23 08:52 80 mls/hr .[id number] ONE Administration Tramadol HCl 25 - 50 mg 11/02/23 22:50 11/03/23 03:11 Tramadol Hcl 50 Mg Tablet PO 12/02/23 22:49 50 mg Q4H PRN Administration Pain (1) Pulmonary embolism Acute cor pulmonale presence: unspecified Chronicity: acute Pulmonary embolism type: unspecified Qualified Code(s): I26.99 - Other pulmonary embolism without acute cor pulmonale
--- NOTE | 2023-11-03 07:29 | Pulmonary Consultation ---
Date of Consultation November 03, 2023 Assessment & Plan (1) Pulmonary embolism: Acute cor pulmonale presence: unspecified Chronicity: acute Pulmonary embolism type: unspecified Qualified Code(s): I26.99 - Other pulmonary embolism without acute cor pulmonale (2) DVT (deep venous thrombosis): (3) Asthma: Plan IMPRESSION: 52-year-old female with a reported past medical history of asthma who presents in the setting of tachycardia and shortness of breath with findings of extensive bilateral pulmonary emboli and near occlusive LEFT lower extremity DVT. RECOMMENDATIONS: 1. Pulmonary emboli - CT findings consistent with extensive bilateral pulmonary emboli. Troponin modestly elevated likely in the setting of one-story mechanism. Will order BMP to assess any further heart strain. Echocardiogram pending at this time. Appropriately managed on heparin drip at this point. This would be considered a provoked event given recent surgical intervention and immobilization. Would recommend systemic anticoagulation with DOAC for 3 to 6 months, however given the extensive nature of the PE and DVT, would likely advocate for longer anticoagulation time period. Patient can eventually transition to DOAC therapy to be used in the outpatient setting. Given the extensive nature of the DVT in the extremity, consideration for vascular evaluat ion for their expert opinion of the extensive clot burden. Otherwise, patient is hemodynamically stable at this time. Would not recommend follow-up CTA in the outpatient setting unless the patient were to have a decline in status or persistent dyspnea. Will evaluate echocardiogram, however, unless there is extensive heart strain, no need for follow-up echocardiogram. If the echo does have suspicious findings of heart strain, etc., would recommend follow-up echocardiogram in 3 months in the outpatient setting. Extensive conversation had with patient at bedside. Certainly, if the patient were to acutely decompensate while in the hospital setting, would recommend tPA thrombolysis. This was reviewed with the patient who recognizes this as a potential treatment option for decompensation and is agreeable. 2. DVT - Nearly occlusive DVT of the LEFT lower extremity noted on ultrasound. Obviously treated with heparin drip at this time. Question utility of vascular surgery evaluation given extensive nature of clot and current extensive bilateral pulmonary emboli. 3. Asthma diagnosis - Patient with previous outpatient diagnosis of exercise- induced asthma. Rarely uses rescue inhaler. No need for evaluation or management of this at this point. 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 Thank you for allowing us to participate in the care of this pleasant patient. Pulmonary medicine will follow for now. Supervising Physician Co-Signing Physician Notes Patient seen and examined. EMR reviewed. Discussed with BIRGIT and agree with assessment plan as noted. The patient has no prior history of clotting or bleeding disorders. No family history of clots or sudden cardiac . She had symptoms for several days prior to coming to the emergency room. She does have evidence of RV strain on echocardiogram and elevated biomarkers so is at risk for clinical deterioration although she appears to be doing well currently. Will continue heparin infusion. Should the patient deteriorate, consideration for salvage therapy with systemic thrombolysis might be appropriate. We do not have catheter-based interventions at this facility. May be reasonable to reach out to a tertiary facility to discuss whether or not they feel catheter-based interventions are appropriate. Would recommend continuing heparin for at least 48 hours until the patient no longer becomes tachycardic with significant movement. Can then transition to oral anticoagulants such as a direct thrombin inhibitor. Would plan on repeating her echocardiogram in 3 months. Given the extensive nature of her clot with elevated biomarkers, could make a case for lifelong anticoagulat ion. At the very least she should get 6 months of anticoagulation and then see hematology for consideration of thrombophilia evaluation. Would hold off for now as it is not any spinning frame changer. The above recommendations and plan were discussed extensively with the patient and her and sister at the bedside. Questions were answered to the best my ability. History of Present Illness Reason for Consultation: pe strain Requesting Physician: Dr. Juárez Attending Physician: Elmira Lira MD History of Present Illness Patient is a 52-year-old female with a previous diagnosis of exercise-induced asthma while in the who still utilizes a rescue inhaler on occasion who presented to the emergency department on 10/29/2023 with complaints of tachycardia and shortness of breath with exertion. The patient had undergone tendon surgery revision to the LEFT ankle as well as plantar fasciitis surgery on 10/04/2023 at the [facility] in [place]. She was placed in a walking boot afterwards and had been on Lovenox for 2 weeks postoperatively. After this 2-week period, she was able to remove the boot occasionally and had not noticed any issues. Unfortunately, of last week she noticed some tachycardia with occasional shortness of breath. She was monitoring her heart rate with her watch device which noted heart rates as high as the 140s with her resting heart rate typically in the 60s. She denied any chest pain or pressure. No palpitations, dizziness, lightheadedness, or presyncope. The shortness of breath worsened and she developed a cough on Wednesday. She was seen at her primary care provider's office earlier this week and diagnosed with a case of complex bronchitis. She was started on azithromycin and prednisone. Unfortunately, her symptoms persisted and yesterday while working she noticed her heart rate remained elevated in the 140s while seated at her desk and working. She presented to the emergency department where she underwent evaluation including CTA which was diagnostic for bilateral pulmonary emboli with concerns for RIGHT heart strain. Troponin was elevated, but trending down at this time. She was initiated on a heparin drip and admitted for ongoing evaluation and management. Ultrasound of the extremities were obtained and shows a near occlusive DVT of the LEFT lower extremity. Upon evaluation in room 105, the patient is awake, alert, and oriented. She reports that she is feeling better, but still has shortness of breath with any movements. She denies any chest pain, palpitations, dizziness, or lighthea dedness. She reports no hemoptysis or pleuritic pain. Her heart rate has seemed to improve since admission. Patient denies prior history of blood clots or bleeding disorders. No family history of the same. She has had 5 surgeries on her feet with similar treatment and had never experienced DVT or PE in the past. Patient carries a prior diagnosis of exercise-induced asthma which she was concerned for asthma exacerbation during her symptoms of shortness of breath, however she admits that her symptoms did not improve with the utilization of her albuterol inhaler. Patient is managed by [facility] for her allergy symptoms and "asthma." Allergies Allergy/AdvReac Type Severity Reaction Status Date / Time chlor-prep Allergy Unknown Rash Uncoded 11/02/23 20:14 Home Medications Medication Instructions Recorded Confirmed Type albuterol sulfate 90 mcg/actuation 2 puff inhalation Q6 PRN Shortness 11/02/23 11/02/23 History aerosol inhaler Of Breath Or Wheezing alendronate 70 mg tablet 70 mg PO WK 11/02/23 11/02/23 History atorvastatin 20 mg tablet 20 mg PO QPM 11/02/23 11/02/23 History azithromycin 250 mg tablet 25 mg PO UD 11/02/23 11/02/23 History cholecalciferol (vitamin D3) 25 50 mcg PO QPM 11/02/23 11/02/23 History mcg (1,000 unit) tablet (Vitamin D3) gabapentin 100 mg capsule 200 mg PO BID 11/02/23 11/02/23 History meloxicam 15 mg tablet 15 mg PO DAILY PRN Pain 11/02/23 11/02/23 History montelukast 10 mg tablet 10 mg PO PM 11/02/23 11/02/23 History prednisone 20 mg tablet 40 mg PO DAILY 11/02/23 11/02/23 History apixaban 5 mg tablet 5 mg PO BID #74 tabs 11/03/23 Rx Patient History Social History Smoking Status: Never smoker Second Hand Exposure: No; Do You Dip or Chew Tobacco: No; Tobacco Cessation Education Requested by Patient: No Hx Alcohol Use: Yes Hx Substance Use: No Preferred Language: Kosovan Communication Ability: Effective 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 All else were negative. Physical Exam Physical Exam: VITAL SIGNS - Vital signs and nursing notes were reviewed. GENERAL - 52-year-old female appearing her stated age who is in no acute distress. Communicates well with provider and answers questions appropriately. SKIN - Without rashes or lesions. NOSE - Midline and without cyanosis. MOUTH/OROPHARYNX - Without perioral cyanosis. NECK - Neck with FROM. LUNGS - Chest wall evaluation demonstrates normal chest wall A:P diameter. Auscultation reveals clear breath sounds bilaterally without wheezes, rales, or rhonchi appreciated. CARDIAC - RRR with S1/S2. No murmur, rubs, or gallops appreciated. EXTREMITIES - Nail clubbing not present. No peripheral cyanosis. No pretibial edema present. +3/5 radial palpated throughout. Surgical incision sites to the LEFT foot/ankle clean, dry, and intact. PSYCH - A&Ox3 and cooperates fully with examiner. Pt is very pleasant and interacts well with examiner. Results & Data Results & Data Vital Signs (Past 12 Hours) Vital Signs Temp Pulse Pulse Resp BP BP Pulse Ox 11/03/23 02:59 36.4 C L 88 16 127/85 94 11/02/23 23:50 36.5 C 88 16 136/90 93 11/02/23 23:05 96 11/02/23 23:03 90 18 125/92 95 11/02/23 22:41 95 H 19 123/91 93 11/02/23 22:28 87 11/02/23 20:36 96 H 18 113/97 93 11/02/23 20:19 103 H 18 109/90 95 O2 Del Method 11/03/23 02:59 Room Air 11/02/23 23:50 Room Air 11/02/23 23:05 Room Air 11/02/23 23:03 Room Air 11/02/23 22:41 Room Air 11/02/23 22:28 11/02/23 20:36 Room Air 11/02/23 20:19 Room Air PG Care Time/CCT Total # of Minutes Spent Total Time Spent with Patient: Total time spent is greater than 50% in coordination of care (as documented) at patient's floor/unit and/or counseling patient: Coding Level of Care Code 23985 IN/OBS CONSULT LVL 4,60M Diagnoses Pulmonary embolism I26.99 Acute cor pulmonale presence: unspecified Chronicity: acute Pulmonary embolism type: unspecified DVT (deep venous thrombosis) I82.409 Asthma J45.909
--- OUTSIDE RECORDS SUMMARY | 2023-11-03 09:32 | External Medical Summary | Summary of Care ---
Author Name Unknown Organization [facility] Address [address] [place] [address] Phone [phone] Care Team Providers Care Trim Machine Adjuster Name Role Phone Maria Fernanda Pisano MD Primary Care Provid er Reason for Visit * Reason Comments Acute Asthma is flaring up ; symptoms started SOB Tightness in chest; slight wheezing and elevated heart rate Encounter Details Date Type Department Care Team (Latest Contact Info) Description 11/01/2023 11:20 AM EDT Office Visit [facility] [address] [place] [phone] Maria Fernanda Pisano MD [address], [place] [phone] Bronchitis, complicated*; Screening mammogram for breast cancer; Prediabetes; Age-related osteoporosis without current pathological fracture; Hyperlipidemia, unspecified hyperlipidemia type; Thyroid nodule Allergies Active Allergy Reactions Criticality Noted Date Comments Chlorhexidine Gluconate Itching,Rash 09/19/2013 documented as of this encounter (statuses as of 11/01/2023) Medications Medication Sig Dispensed Refills Start Date End Date Status montelukast (SINGULAIR) 10 MG TabletIndications :Bronchitis with bronchospasm Take 1 Tab by mouth daily. 30 Tab 11 9 Active Cetirizine HCl 10 MG Oral Capsule Take 1 Capsule by mouth in the morning. 0 9 Active Meloxicam 15 MG Oral Tablet Take 1 Tablet by mouth in the morning. for pain.. 30 Tab 11 1 Active Mometasone Furoate 50 MCG/ACT Nasal Suspension (Nasonex) Administer 2 Sprays into each nostril daily. 17 g 6 1 Active Additional Information Patient not taking.Reported on 10/22/2023 Albuterol Sulfate HFA 108 (90 Base) MCG/ACT Inhalation Aerosol Solution Inhale 2 Puffs by mouth every 4 hours as needed for Cough, Shortness of Breath or Wheezing (And prior exercise). 0 1 Active EPINEPHrine 0.3 MG/0.3ML Injection Solution Auto-injector (Autoinjector) For a severe reaction: Inject in outer thigh following instructions on package and go to the Emergency room. 2 Each 3 1 Active Atorvastatin Calcium 20 MG Oral Tablet (Lipitor)Indicati ons:Dyslipidemia Take 1 Tablet by mouth in the morning. 90 Tablet 1 3 Active Alendronate Sodium 70 MG Oral Tablet (Fosamax)Indicati ons:Age-related osteoporosis without current pathological fracture Take 1 Tablet by mouth once a week. with 8 oz. water 30 minutes before first meal of the day. Remain upright for 30 min after taking tablet. 15 Tablet 3 3 Active Vitamin D3 25 MCG (1000 UT) Oral Tablet (Vitamin D3) Take 2 Tablets by mouth at bedtime. 0 4 Active Gabapentin 100 MG Oral Capsule (Neurontin)Indica tions:Cervical radicular pain Take two capsules by mouth AM and two capsules by mouth PM. 120 Capsule 2 4 Active Womens 50+ Multi Vitamin/Min Oral Tablet Take by mouth. 0 Active predniSONE 20 MG Oral Tablet (Deltasone)Indica tions:Bronchitis, complicated Take 2 Tablets by mouth in the morning for 5 days. 10 Tablet 0 4 11/06/19 24 Active Azithromycin 250 MG Oral Tablet (Zithromax)Indica tions:Bronchitis, complicated Take 2 tabs by mouth on the first day, then 1 tab daily on days two through five 6 Tablet 0 4 11/06/19 24 Active Enoxaparin Sodium 40 MG/0.4ML Injection Solution Prefilled Syringe (Lovenox) Inject 40 mg under the skin in the morning and 40 mg before bedtime. Post op surgery . 0 11/01/19 24 Discontinued documented as of this encounter (statuses as of 11/01/2023) Active Problems Problem Noted Date Diagnosed Date Prediabetes 05/07/2023 Vitamin D deficiency 03/23/2022 Avulsion of ligament with bony fragment 03/23/20 Overview: Apr 28, 2023 Entered By: EVETTE GREENBERG Comment: History of left fibular ligament avulsion fracture Ankle instability 03/23/2022 Osteoporosis 03/23/2022 Irritable bowel syndrome 03/23/2022 Closed fracture of lateral malleolus 03/23/2022 Chronic instability of right knee 03/23/2022 Chondromalacia of right patella 03/23/2022 Asymptomatic varicose veins 03/23/2022 History of total hysterectomy 03/23/2022 Obesity, Class I, BMI 30.0-34.9 (see actual BMI) 03/23/2022 Allergic asthma 05/05/2021 Multiple food allergies 05/05/2021 Overview: Ingestion of watermelon, apples, pineapples, and engle and nuts seem to cause itching at the back of the throat and in ears. ? sensation throat swelling Dyslipidemia 10/28/2017 Calcium urolithiasis 02/13/2016 High risk for fracture due to osteoporosis by DE XA scan 10/30/2010 MENOPAUSE SURGICALLY INDUCED 06/06/2010 Hyperlipidemia, unspecified 07/25/2008 Overview: Per Lipid Taxonomy. Hereditary and idiopathic peripheral neuropathy 07/04/2008 Bronchospasm, exercise-induced 01/05/2005 Allergic rhinitis 12/17/2003 Overview: ICD-10 update of inactive term documented as of this encounter (statuses as of 11/01/2023) Resolved Problems Problem Noted Date Diagnosed Date Resolved Date Asthma in remission 05/05/2021 05/05/20 21 Asthma, mild persistent 05/05/202104/25 Asthma, moderate persistent 05/05/2021 05/05/2021 Asthma, severe persistent 05/05/2021 Asthma with severity to be determined 01/16/2010 05/05/2021 Overview: Per Asthma Taxonomy ICD-10 update of inactive term Dyslipidemia, goal to be determined 07/09/2009 10/30/2010 Overview: Per Lipid Taxonomy. Diarrhea 07/04/2008 08/18/2017 CHR ALLRG CONJUNCTIV NEC 01/05/2005 EXTRINSIC ASTHMA, UNSPEC 01/05/2005 AC SUPP OTITIS MEDIA, LEFT 07/08/2004 1 09/04/2007 ACUTE URI NOS 07/08/2004 07/04/2008 2ND DEG BURN - BILATERAL FEET 01/15/2003 07/04/2008 1ST DEG BURN - BILATERAL FEET 01/15/2003 07/04/2008 documented as of this encounter (statuses as of 11/01/2023) Immunizations Name Administration Dates Next Due COVID-19, mRNA, LNP-s, PF, B ooster, 100mcg/0.5mg (Moderna) 07/16/2021 Covid-19 Ad26, Single Dose (Bailee/J&J) 10/04/2020 H1N1 2009 Influenza, IM 05/28/2009 Pneumococcal Polysaccharide PPV23 (Pneumovax) 03/28/2020,10/01/2017 Seasonal Influenza Virus Vac cine, Unspecified Formulation 04/17/2019,05/22/2013,05/30/2011 Seasonal Influenza, PF, 6 M & above, IM , (FluLaval or Fluzone) 05/05/2021,05/29/2020 Seasonal Influenza, Recombin ant, RIV4, PF, (Flublock) 05/13/2017 Seasonal Influenza, Split, I IV3, With Preserve, Inj 04/17/2019,05/13/2017,05/07/2016,04/25,07/07/2011,05/09/2010,05/26/2009 ,05/24/2008 TD - Tetanus/Diptheria (ADULT) 11/23/1997 TD, Preservative Free 11/23/1997 TDAP (age 10 and older)(Boostrix) 10/01/2017,,09/12/2007 Varicella Zoster Vaccine (Adult) 06/11/2020 Zoster Vaccine Recombinant (Shingrix) 06/11/2020 ,02/28/2020,02/28/2020 documented as of this encounter Social History Tobacco Use Types Packs/Day Years Used Date Smoking Tobacco: Former Cigarettes 0.5 2 0 07/26/1987 - 07/26/1989 Smokeless Tobacco: Former Quit: 1989 Comments:no passive smoke ex posure Alcohol Use Standard Drinks/Week Comments Yes 0 (1 standard drink = 0.6 oz pur e alcohol) rare; 1-2 drinks/month AUDIT-C Answer Date Recorded Q1: How often do you have a drink containing alc ohol? 2-4 times a month 05/05/2021 Q2: How many drinks containi ng alcohol do you have on a typical day when you are drinking? Not asked 05/05/2021 Q3: How often do you have si x or more drinks on one occasion? Not asked 05/05/2021 PHQ-2 Answer Date Recorded PHQ Adult Total Score 0 03/23/2022 Hunger Vital Sign Answer Date Recorded Within the past 12 months, y ou worried that your food would run out before you got the money to buy more. Never true 05/06/20 23 Within the past 12 months, t he food you bought just didn't last and you didn't have money to get more. Never true 05/06/2023 Sex and Gender Information Value Date Recorded Sex Assigned at Female 05/06/2023 2:18 PM EDT Gender Identity Female 05/06/2023 2:18 PM EDT Sexual Orientation Straight 05/06/2023 2: 18 PM EDT Job Start Date Occupation Industry Not on file Not on file Not on file documented as of this encounter Last Filed Vital Signs Vital Sign Reading Time Taken Comments Blood Pressure 108/82 11/01/2023 11:27 AM EDT Pulse 66 11/01/2023 11:27 AM EDT Temperature 36.6 C (97.8 F) 11/01/2023 11:27 AM E DT Respiratory Rate 18 11/01/2023 11:27 AM EDT Oxygen Saturation 98% 11/01/2023 11:27 AM EDT Inhaled Oxygen Concentration - - Weight 79.8 kg (176 lb) 11/01/2023 11:27 AM EDT Height 158.2 cm (5' 2.3") 11/01/2023 11:27 AM ED T Body Mass Index 31.88 11/01/2023 11:27 AM EDT documented in this encounter Progress Notes * Maria Fernanda Pisano MD - 11/01/2023 11:40 AM EDT Images from the original note were not included. ASSESSMENT / PLAN: Gerri Shine is a 52 year old female with PMHx polyarthropathy / osteoporosis / allergic rhinitis and asthma / dyslipidemia / food allergies keeps Epi pen handy - here for recheck Prediabetes A1C remains stable at 6.2 Reviewed diet / exercise and medication options - she would like continue to try diet/exercise and defer medication at this time Has a nutrition dance coach HLD Cont statin Osteoporosis Follows with Rheum Alendronate, Vit D and calcium Asthma Flare up No s/s pna Zpack, pred, add steroid containing nasal spray to regimen of singulair, zyrtec and rescue inhaler Screenings/anticipatory guidance reviewed include if applicable nutrition, family planning/contraception, physical activity, healthy weight, injury prevention, misuse of tobacco, alcohol and drugs, sexual behavior and STDs, dental health, mental health, immunizations, age appropriate screenings: next colon 2026 - (5yr recall given FH father with colon ca) s/p WESTLEY - had been on premarin - was taken off of this Mammo due - order placed Follow Up: Return in about 6 months (around 05/02/2024). Bronchitis, complicated (Primary) - predniSONE 20 MG Oral Tablet (Deltasone); Take 2 Tablets by mouth in the morning for 5 days. - Azithromycin 250 MG Oral Tablet (Zithromax); Take 2 tabs by mouth on the first day, then 1 tab daily on days two through five Screening mammogram for breast cancer - MAMMOGRAM SCREENING JOEY BILATERAL; Future; Expected date: 11/01/2023 Follow Up: Return in about 6 months (around 05/02/2024). If needed, prefers contact by: Ok to leave message on phone: SUBJECTIVE: Nursing Notes: Lula Parra LPN 11/01/23 1134 Signed The patient has been properly identified by confirmation of name and date of . Chief Complaint Patient presents with Acute Asthma is flaring up; symptoms started SOB Tightness in chest; slight wheezing and elevated heart rate HPI: Gerri Shine is a 52 year old female. Here for recheck. Asthma flaring up - using singulair / zyrtec / rescue inhaler daily No smoking/no pets Has done steroids before with benefit [facility] Thyroid nodule biopsy result: Diagnosis: (01) RIGHT THYROID GLAND, FNA: NEGATIVE FOR MALIGNANT CELLS. BETHESDA CATEGORY II. SPECIMEN CONSISTS OF BENIGN FOLLICULAR CELLS, HEMOSIDERIN-LADEN MACROPHAGES, COLLOID, AND BLOOD. THIS PATTERN IS CONSISTENT WITH A BENIGN FOLLICULAR NODULE. Reviewed sources 1- Patient Active Problem List Diagnosis Code Allergic rhinitis J30.9 Bronchospasm, exercise-induced J45.990 Hereditary and idiopathic peripheral neuropathy G60.9 Hyperlipidemia, unspecified E78.5 MENOPAUSE SURGICALLY INDUCED Z78.0 High risk for fracture due to osteoporosis by DEXA scan M81.0 Dyslipidemia E78.5 Allergic asthma J45.909 Multiple food allergies Z91.018 Vitamin D deficiency E55.9 Avulsion of ligament with bony fragment T14.8XXA Ankle instability M25.373 Osteoporosis M81.0 Irritable bowel syndrome K58.9 Closed fracture of lateral malleolus S82.63XA Chronic instability of right knee M23.51 Chondromalacia of right patella M22.41 Asymptomatic varicose veins I83.90 History of total hysterectomy Z90.710 Calcium urolithiasis N20.9 Obesity, Class I, BMI 30.0-34.9 (see actual BMI) E66.9 Prediabetes R73.03 Current Outpatient Medications Medication Sig Dispense Refill montelukast (SINGULAIR) 10 MG Tablet Take 1 Tab by mouth daily. 30 Tab 11 Cetirizine HCl 10 MG Oral Capsule Take 1 Capsule by mouth in the morning. Meloxicam 15 MG Oral Tablet Take 1 Tablet by mouth in the morning. for pain.. 30 Tab 11 Albuterol Sulfate HFA 108 (90 Base) MCG/ACT Inhalation Aerosol Solution Inhale 2 Puffs by mouth every 4 hours as needed for Cough, Shortness of Breath or Wheezing (And prior exercise). EPINEPHrine 0.3 MG/0.3ML Injection Solution Auto-injector (Autoinjector) For a severe reaction: Inject in outer thigh following instructions on package and go to the Emergency room. 2 Each 3 Atorvastatin Calcium 20 MG Oral Tablet (Lipitor) Take 1 Tablet by mouth in the morning. 90 Tablet 1 Alendronate Sodium 70 MG Oral Tablet (Fosamax) Take 1 Tablet by mouth once a week. with 8 oz. water30 minutes before first meal of the day. Remain upright for 30 min after taking tablet. 15 Tablet 3 Vitamin D3 25 MCG (1000 UT) Oral Tablet (Vitamin D3) Take 2 Tablets by mouth at bedtime. Gabapentin 100 MG Oral Capsule (Neurontin) Take two capsules by mouth AM and two capsules by mouth PM. 120 Capsule 2 Womens 50+ Multi Vitamin/Min Oral Tablet Take by mouth. predniSONE 20 MG Oral Tablet (Deltasone) Take 2 Tablets by mouth in the morning for 5 days. 10 Tablet 0 Azithromycin 250 MG Oral Tablet (Zithromax) Take 2 tabs by mouth on the first day, then 1 tab dailyon days two through five 6 Tablet 0 Mometasone Furoate 50 MCG/ACT Nasal Suspension (Nasonex) Administer 2 Sprays into each nostril daily. (Patient not taking: Reported on 10/22/2023) 17 g 6 No current facility-administered medications for this visit. OBJECTIVE: BP 108/82 | Pulse 66 | Temp 36.6 C (97.8 F) | Resp 18 | Ht 1.582 m (5' 2.3") | Wt 79.8 kg (176 lb) | LMP 08/26/1996 | SpO2 98% | BMI 31.88 kg/m | BSA 1.87 m Vitals reviewed and is normotensive / afebrile / and not tachycardic General: No acute distress. Neuro: Alert Pleasant & interactive. Respiratory: Good inspiratory effort, no labored breathing. CTAB CV: RRR no M R G HEENT: Conjunctivae appear clear. No swelling noted face or lips. Skin: No rash visible on exposed skin areas, normal coloration & appears dry. Psych: Normal affect. Fluent speech. Maria Fernanda Pisano MD [address] [phone] There are no Patient Instructions on file for this visit. documented in this encounter Nursing Notes * Lula Parra LPN - 11/01/2023 11:34 AM EDT The patient has been properly identified by confirmation of name and date of . Chief Complaint Patient presents with Acute Asthma is flaring up; symptoms started SOB Tightness in chest; slight wheezing and elevated heart rate documented in this encounter Plan of Treatment Upcoming Encounters Date Type Department Care Team (Late st Contact Info) Description 12/24/2023 11:00 AM EDT Telemedicine [facility], [facility] [address] [facility] [place] [address] Patricia Magana PA-C [address] [place] [address] 01/12/2024 8:30 AM EDT Imaging Radiology [facility] [address] [facility] [place] [address] 05/05/2024 11:40 AM EDT Office Visit [facility] [address] [place] [address] Maria Fernanda Pisano MD [address] [place] [address] Scheduled Orders Name Type Priority Associated Diagnoses Orde r Schedule MAMMOGRAM SCREENING JOEY BILATERAL Medical Imaging Routine Screening mammogram for breast cancer Expected: 11/01/2023, Expires: 11/30/2024 Scheduled Procedures Name Priority Associated Diagnoses Date/Ti me COLONOSCOPY FLEXIBLE PROXIMA L DIAGNOSTIC Recall Family history of colon cancer Health Maintenance Due Date Last Done Comments HIV Screening 1984 Hepatitis C Screening 12/11/1987 Hepatitis B (1 of 3 - 19+ 3-dose series) 1988 Pneumococcal Vaccine: Pediatrics (0 to 5 Years) and At-Risk Patients (6 to 64 Years) (2 of 2 - PCV) 03/28/2021 03/28/2020, 10/01/2017 Depression Screening 03/23/2023 03/23/2022 COVID-19 Vaccine (3 - 24 season) 2023 07/16/2021, 10/04/2020 Mammogram 10/22/2023 10/21/2022, 09/24, 08/02/2020, Additional history exists Influenza Vaccine (FLU shot) (Season Ended) 2024 05/05/2021, 05/29/2020, 04/17/2019, Additional history exists HbA1c 04/30/2024 04/30/2023, 02/26/2020 DXA Scan 06/10/2025 06/10/2023, 04/25, 09/28/2017, Additional history exists COLONOSCOPY-EVERY 5 YRS AGES 18-100 06/24/2026 06/24/2021, 06/24/2021, 07/23/2010 DTaP,Tdap,and Td Vaccines (4 - Td or Tdap) 10/02/2027 10/01/2017, 03/09/2008, 09/12/2007, Additional history exists Lipid Panel 04/30/2028 04/30/2023, 0809/2019, 07/11/2018, Additional history exists Zoster Vaccines Completed 06/11/2020, 05/26, 02/28/2020, Additional history exists VITAMIN D LEVEL ONCE IN A LIFETIME-USE SMARTSET# [id number] Completed 07/23/2023, 07/11/2018, 06/30/2011 GARDASIL-HPV IMMUNIZATION SERIES Aged Out No longer eligible based on patient's age to complete this topic MENINGOCOCCAL (MENACTRA/MENVEO) Aged Out No longer eligible based on patient's age to complete this topic documented as of this encounter Medical Devices Implanted Type Area On Site Nurse Device Identifier Shelf Expiration Date Model / Serial / Lot Barnard Sm Joint [id number] - [id number] Implanted:Qty: 2 on 01/19/2019 by Nimisha Chin DPM at OR [facility] Right: Foot [employer] 05/25/2020 [id number] / / [id number] Internal Brace Ligament Augmentaion Repair Implanted:Qty: 1 on 01/19/2019 by Nimisha Chin DPM at OR [facility] Right: Foot 11/22/2020 [id number] / / [id number] documented as of this encounter Visit Diagnoses Diagnosis Bronchitis, complicated- Primary Bronchitis, not specified as acute or chronic Screening mammogram for breast cancer Prediabetes Other abnormal glucose Age-related osteoporosis without current pathological fracture Senile osteoporosis Hyperlipidemia, unspecified hyperlipidemia type Thyroid nodule Nontoxic uninodular goiter documented in this encounter Care Teams Trim Machine Adjuster Relationship Specialty Start Date End Date Maria Fernanda Pisano MD [address], [place] [phone] PCP - General Family Medicine 03/23/22 documented as of this encounter
--- OUTSIDE RECORDS SUMMARY | 2023-11-03 09:32 | External Medical Summary | Summary of Care ---
Author Name Unknown Organization [facility] Address [address] [place] [facility] [address] Phone [phone] Care Team Providers Care Marketing Services Rep Name Role Phone Maria Fernanda Pisano MD Primary Care Provid er Encounter Details Date Type Department Care Team (Late st Contact Info) Description 07/22/2023 Orders Only [facility] [address] [place] [address] Maria Fernanda Pisano MD [address] [place] [address] Allergies Active Allergy Reactions Criticality Noted Date Comments Chlorhexidine Gluconate Itching,Rash 09/19/2013 documented as of this encounter (statuses as of 08/06/2023) Medications Medication Sig Dispensed Refills Start Date End Date Status montelukast (SINGULAIR) 10 MG TabletIndications:B ronchitis with bronchospasm Take 1 Tab by mouth daily. 30 Tab 11 07/27/2018 Active Cetirizine HCl 10 MG Oral Capsule Take 1 Capsule by mouth in the morning. 0 01/17/2019 Active Meloxicam 15 MG Oral Tablet Take 1 Tab by mouth daily. for pain. 30 Tab 11 03/24/2021 Active Mometasone Furoate 50 MCG/ACT Nasal Suspension (Nasonex) Administer 2 Sprays into each nostril daily. 17 g 6 05/05/2021 Active Additional Information Patient not taking.Reported on 07/23/2023 Albuterol Sulfate HFA 108 (90 Base) MCG/ACT Inhalation Aerosol Solution Inhale 2 Puffs by mouth every 4 hours as needed for Cough, Shortness of Breath or Wheezing (And prior exercise). 0 05/05/2021 Active EPINEPHrine 0.3 MG/0.3ML Injection Solution Auto-injector (Autoinjector) For a severe reaction: Inject in outer thigh following instructions on package and go to the Emergency room. 2 Each 3 05/05/2021 Active Atorvastatin Calcium 20 MG Oral Tablet (Lipitor)Indication s:Dyslipidemia Take 1 Tablet by mouth in the morning. 90 Tablet 1 03/16/2023 Active Alendronate Sodium 70 MG Oral Tablet (Fosamax)Indication s:Age-related osteoporosis without current pathological fracture Take 1 Tablet by mouth once a week. with 8 oz. water 30 minutes before first meal of the day. Remain upright for 30 min after taking tablet. 15 Tablet 3 07/08/2023 Active documented as of this encounter (statuses as of 08/06/2023) Active Problems Problem Noted Date Diagnosed Date Prediabetes 05/07/2023 Vitamin D deficiency 03/23/2022 Avulsion of ligament with bony fragment 03/23/20 22 Overview: Apr 28, 2023 Entered By: EVETTE [...] as of this encounter (statuses as of 08/06/2023) Resolved Problems Problem Noted Date Diagnosed Date Resolved Date Asthma in remission 05/05/2021 05/05/20 Asthma, mild persistent 05/05/202104/25 Asthma, moderate persistent [...] as of this encounter (statuses as of 08/06/2023) Immunizations Name Administration Dates Next Due COVID-19, [...] Date Smoking Tobacco: Former Cigarettes 0.5 2 Q uit: 07/26/1989 Smokeless Tobacco: Former Quit: 1989 Comments:no [...] on file documented as of this encounter Plan of Treatment Upcoming Encounters Date Type Department Care Team (Late st Contact Info) Description 08/11/2023 12:30 PM EST Office Visit [facility], [facility] [address] [place] [address] Patricia Sommer PA-C [address] [place] [address] 11/12/2023 9:00 AM EDT Office Visit [facility] [address] [place] [phone] Maria Fernanda Pisano MD [address] [place] [address] Scheduled Procedures Name Priority Associated Diagnoses Date/Ti me COLONOSCOPY FLEXIBLE PROXIMA L DIAGNOSTIC Recall Family history of colon cancer Health Maintenance Due Date Last Done Comments Hepatitis B (1 of 3 - 3-dose series) 1969 HIV Screening 1984 Hepatitis C Screening 12/11/1987 Pneumococcal Vaccine: Pediatrics (0 to 5 Years) and At-Risk Patients (6 to 64 Years) (2 - PCV) 03/28/2021 03/28/2020, 10/01/2017 Depression Screening 03/23/2023 03/23/2022 COVID-19 Vaccine (3 - 2022- season) 2023 07/16/2021, 10/04/2020 Influenza Vaccine (FLU shot) (#1) 2023 05/05/2021, 05/29/2020, 04/17/2019, Additional history exists Mammogram 10/22/2023 10/21/2022, 09/24, 08/02/2020, Additional history exists HbA1c 04/30/2024 04/30/2023, 02/26/2020 DXA Scan 06/10/2025 06/10/2023, 04/25, 09/28/2017, Additional history exists COLONOSCOPY-EVERY 5 YRS AGES 18-100 06/24/2026 06/24/2021, 06/24/2021, 07/23/2010 DTaP,Tdap,and Td Vaccines (4 - Td or Tdap) 10/02/2027 10/01/2017, 03/09/2008, 09/12/2007, Additional history exists Lipid Panel 04/30/2028 04/30/2023, 09/2019, 07/11/2018, Additional history exists Zoster Vaccines Completed 06/11/2020, 05/26, 02/28/2020, Additional history exists VITAMIN D LEVEL ONCE IN A LIFETIME-USE SMARTSET# [id number] Completed 07/23/2023, 07/11/2018, 06/30/2011 GARDASIL-HPV IMMUNIZATION SERIES Aged Out No longer eligible based on patient's age to complete this topic MENINGOCOCCAL (MENACTRA/MENVEO) Aged Out No longer eligible based on patient's age to complete this topic documented as of this encounter Medical Devices Implanted Type Area Revenue Stamp Cutter Device Identifier Shelf Expiration Date Model / Serial / Lot Internal Brace Ligament Augmentaion Repair Implanted:Qty: 1 on 01/19/2019 by Nimisha Chin DPM at OR [facility] Right: Foot 11/22/2020 [id number] / / [id number] documented as of this encounter Procedures Procedure Name Priority Date/Time Associated Diagnosis Comments RADIOLOGY EXAM - MRI (IMAGES ONLY, NO REPORT) Routine 07/22/2023 4:40 PM EST documented in this encounter Results * RADIOLOGY EXAM - MRI (IMAGES ONLY, NO REPORT) (07/22/2023 4:40 PM EST) 07/22/2023 4:37 PM EST Narrative Scheduling, Silent - 08/06/2023 11:05 AM EST This is an imaging study not interpreted or resulted by a [facility] or [facility] contracted radiologist. Maria Fernanda Pisano MD RAD MRI-MRA documented in this encounter Care Teams Marketing Services Rep Relationship Specialty Start Date End Date Maria Fernanda Pisano MD [address] [place] [phone] PCP - General Family Medicine 03/23/22 documented as of this encounter
--- OUTSIDE RECORDS SUMMARY | 2023-11-03 09:32 | External Medical Summary | Summary of Care ---
Author Name Unknown Organization [facility] Address [address] [facility] [place] [address] Phone [phone] Care Team Providers Care Print Buyer Name Role Phone Maria Fernanda Pisano MD Primary Care Provid er Reason for Visit * Reason Comments Neck Pain Encounter Details Date Type Department Care Team (Late st Contact Info) Description 09/01/2023 3:30 PM [facility] Telemedicine Interventional Pain Center, [facility] [address] [place] [id number] Patricia Magana PA-C [address] [place] [address] Cervical radicular pain* Allergies Active Allergy Reactions Criticality Noted Date Comments Chlorhexidine Gluconate Itching,Rash 09/19/2013 documented as of this encounter (statuses as of 09/01/2023) Medications Medication Sig Dispensed Refills Start Date End Date Status montelukast (SINGULAIR) 10 MG TabletIndications: Bronchitis with bronchospasm Take 1 Tab by mouth daily. 30 Tab 11 07/27/2018 Active Cetirizine HCl 10 MG Oral Capsule Take 1 Capsule by mouth in the morning. 0 01/17/2019 Active Meloxicam 15 MG Oral Tablet Take 1 Tablet by mouth in the morning. for pain.. 30 Tab 11 03/24/2021 Active Mometasone Furoate 50 MCG/ACT Nasal Suspension (Nasonex) Administer 2 Sprays into each nostril daily. 17 g 6 05/05/2021 Active Albuterol Sulfate HFA 108 (90 Base) MCG/ACT [...] Active Atorvastatin Calcium 20 MG Oral Tablet (Lipitor)Indicatio ns:Dyslipidemia Take 1 Tablet by mouth in the morning. 90 Tablet 1 03/16/2023 Active Alendronate Sodium 70 MG Oral Tablet (Fosamax)Indicatio ns:Age-related osteoporosis without current pathological fracture Take 1 Tablet by mouth once a week. with 8 oz. water 30 minutes before first meal of the day. Remain upright for 30 min after taking tablet. 15 Tablet 3 07/08/2023 Active Vitamin D3 25 MCG (1000 UT) Oral Tablet (Vitamin D3) Take 2 Tablets by mouth at bedtime. 0 07/27/2023 Active Gabapentin 100 MG Oral Capsule (Neurontin)Indicat ions:Cervical radicular pain Take one capsule by mouth one hour prior to bed for three days then increase to one capsule AM and one capsule PM. 180 Capsule 0 08/11/2023 Active documented as of this encounter (statuses as of 09/01/2023) Active Problems Problem Noted Date Diagnosed Date [...] as of this encounter (statuses as of 09/01/2023) Resolved Problems Problem Noted Date Diagnosed Date [...] as of this encounter (statuses as of 09/01/2023) Immunizations Name Administration Dates Next Due COVID-19, [...] on file documented as of this encounter Progress Notes * Patricia Magana PA-C - 09/01/2023 3:31 PM EST Name: Gerri Shine Date: 09/01/2023 After connecting to the patient via telephone, the patient was identified by name and date of . Patient was then informed that this was a telephone call only visit. The patient agreed to participate. Visit Disposition: Routine follow-up Total call duration eight minutes. HPI: Gerri Shine is a 52 year old female known to the Pain Management clinic presents for follow up after starting low dose gabapentin for cervical radiculopathy. Using 100 mg BID. Denies unwanted side effects. Admits at least mild pain reduction in arm. Most limited by numbness in R periscapular region. Baseline paresthesia R UE. Denies progressive UE weakness, dexterity changes. Denies bowel/bladder dysfunction. Using mobic, gabapentin for pain relief. Scheduled for ERNIE 10/22/23. Of note, scheduled for L ankle surgery 10/04/23. Per patient, surgeon is aware of steroid injection. History: Past Medical History: Diagnosis Date Allergic rhinitis Bronchospasm, exercise-induced 01/05/2005 Dyslipidemia 10/28/2017 Hereditary and idiopathic peripheral neuropathy 07/04/2008 High risk for fracture due to osteoporosis by DEXA scan 10/30/2010 MENOPAUSE SURGICALLY INDUCED 06/06/1998 Past Surgical History: Procedure Laterality Date COLONOSCOPY W/ BIOPSY (RECTUM) 07/23/2010 bxs COLONOSCOPY, DIAGNOSTIC (RECTUM) 06/24/2021 normal, repeat 5 yrs / COLONOSCOPY FLEXIBLE PROXIMAL DIAGNOSTIC performed by Racheal Montes De Oca MD at ENDOSCOPY [facility] FOLLOWUP REPAIR OF ANKLE LIGAMENT Right 01/19/2019 REPAIR SECONDARY LIGAMENT ANKLE COLLATERAL performed by Nimisha Chin DPM at OR [facility] INJ 1 TENDON SHEATH LIGAMENT Right 01/19/2019 INJECTION TENDON SHEATH OR LIGAMENT APONEUROSIS performed by Nimisha Chin DPM at OR [facility] TOTAL ABD HYSTERECTOMY W/WO REMOVAL OF TUBE(S) 1996 TOTAL HYSTERECTOMY Current Outpatient Medications Medication Sig Dispense Refill montelukast (SINGULAIR) 10 MG Tablet Take 1 Tab by mouth daily. 30 Tab 11 Cetirizine HCl 10 MG Oral Capsule Take 1 Capsule by mouth in the morning. Meloxicam 15 MG Oral Tablet Take 1 Tablet by mouth in the morning. for pain.. 30 Tab 11 Mometasone Furoate 50 MCG/ACT Nasal Suspension (Nasonex) Administer 2 Sprays into each nostril daily. 17 g 6 Albuterol Sulfate HFA 108 (90 Base) MCG/ACT [...] Gabapentin 100 MG Oral Capsule (Neurontin) Take one capsule by mouth one hour prior to bed for three days then increase to one capsule AM and one capsule PM. 180 Capsule 0 No current facility-administered medications for this visit. Review of patient's allergies indicates: Allergen Reactions Chloraprep One Step [Chlorhexidine Gluconate] Itching and Rash ASSESSMENT: Cervical radicular pain RECOMMENDATION: At least mild relief with low dose gabapentin. Will further increase to 200 mg AM and 200 mg PM. Continue with scheduled ERNIE late September. Will contact clinic if symptoms worsen. Total call duration eight minutes. Patricia Magana PA-C 09/01/2023 documented in this encounter Plan of Treatment Upcoming Encounters Date Type Department Care Team (Latest Contact Info) Description 10/22/2023 8:25 AM EDT Hospital Encounter [facility], Operating Room [facility] [address] [place] [phone] Karthikeyan Larios, [address] [place] [address] 10/22/2023 8:25 AM EDT - 10/22/2023 8:50 AM EDT Surgery OR [facility], Operating Room [facility] [address] [place] [phone] Karthikeyan Larios, [address] [place] [phone] INJECTION SPINE LUMBAR CERVICAL OR THORACIC 11/12/2023 9:00 AM EDT Office Visit [facility] [address] [place] [phone] Maria Fernanda Pisano MD [address] [place] [address] Scheduled Procedures Name Priority Associated Diagnoses Date/Ti me INJECTION SPINE LUMBAR CERVICAL OR THORACIC Cervical radiculitis 10/22/2023 8:25 AM EDT COLONOSCOPY FLEXIBLE PROXIMAL DIAGNOSTIC Recall Family history of colon cancer Health Maintenance Due Date Last Done Comments Hepatitis B (1 of 3 - 3-dose series) 1969 HIV Screening 1984 Hepatitis C Screening 12/11/1987 Pneumococcal Vaccine: Pediatrics (0 to 5 Years) and At-Risk Patients (6 to 64 Years) (2 - PCV) 03/28/2021 03/28/2020, 10/01/2017 Depression Screening 03/23/2023 03/23/2022 COVID-19 Vaccine (3 - 2022-24 season) 2023 07/16/2021, 10/04/2020 Influenza Vaccine (FLU [...] D LEVEL ONCE IN A LIFETIME-USE SMARTSET# [id number] Completed 07/23/2023, 07/11/2018, 06/30/2011 GARDASIL-HPV IMMUNIZATION SERIES Aged Out No longer eligible based on patient's age to complete this topic MENINGOCOCCAL (MENACTRA/MENVEO) Aged Out No longer eligible based on patient's age to complete this topic documented as of this encounter Medical Devices Implanted Type Area Florist Device Identifier Shelf Expiration Date Model / Serial / Lot Internal Brace Ligament Augmentaion Repair Implanted:Qty: 1 on 01/19/2019 by Nimisha Chin DPM at OR [facility] Right: Foot 11/22/2020 [id number] / / [id number] documented as of this encounter Visit Diagnoses Diagnosis Cervical radicular pain- Primary Brachial neuritis or radiculitis nos Cervical radiculitis Brachial neuritis or radiculitis nos documented in this encounter Care Teams Print Buyer Relationship Specialty Start Date End Date aMria Fernanda Pisano MD [address] [place] [id number] PCP - General Family Medicine 03/23/22 documented as of this encounter
--- OUTSIDE RECORDS SUMMARY | 2023-11-03 09:32 | External Medical Summary | Summary of Care ---
Author Name Unknown Organization [facility] [address] [facility] [address] Phone [phone] Care Team Providers Care Revenue Stamper Name Role Phone Maria Fernanda Pisano MD Primary Care Provid er Reason for Visit * Reason Onset Date Comments Medication Refill 10/13/2023 Encounter Details Date Type Department Care Team (Late st Contact Info) Description 10/13/2023 Refill Interventional Pain Center, [facility] [address] [place] [address] Eriberto Magana PA-C [address] [place] [address] Cervical radicular pain Allergies Active Allergy Reactions Criticality Noted Date Comments Chlorhexidine Gluconate Itching,Rash 09/19/2013 documented as of this encounter (statuses as of 10/14/2023) Medications Medication Sig Dispensed Refills Start Date [...] 07/27/2023 Active Gabapentin 100 MG Oral Capsule (Neurontin)Indica tions:Cervical radicular pain Take two capsules by mouth AM and two capsules by mouth PM. 120 Capsule 2 10/14/2023 Active Gabapentin 100 MG Oral Capsule (Neurontin)Indica tions:Cervical radicular pain Take one capsule by mouth one hour prior to bed for three days then increase to one capsule AM and one capsule PM. 180 Capsule 0 08/11/2023 4 Discontinu ed(Refill) documented as of this encounter (statuses as of 10/14/2023) Active Problems Problem Noted Date Diagnosed Date [...] as of this encounter (statuses as of 10/14/2023) Resolved Problems Problem Noted Date Diagnosed Date [...] as of this encounter (statuses as of 10/14/2023) Immunizations Name Administration Dates Next Due COVID-19, [...] on file documented as of this encounter Miscellaneous Notes * Telephone Encounter - Eriberto Magana PA-C - 10/14/2023 2:13 PM EDTSigned Prescriptions: Disp Refills Gabapentin 100 MG Oral Capsule (Neurontin) 120 Ca*2 Sig: Take two capsules by mouth AM and two capsules by mouth PM.Authorizing Provider: ERIBERTO MAGANA * Telephone Encounter - Carolyn Ferrer LPN - 10/14/2023 12:12 PM EDTPending Prescriptions: Disp Refills Gabapentin 100 MG Oral Capsule (Neurontin) 180 Ca*0 Sig: Take one capsule by mouth one hour prior to bed for three days then increase to one capsule AM and one capsule PM. documented in this encounter Plan of Treatment Upcoming Encounters Date Type Department Care Team (Latest Contact Info) Description 10/22/2023 8:25 AM EDT Hospital Encounter [facility], Operating Room [facility] [address] [place] [phone] Karthikeyan Larios, [address] [place] [address] 10/22/2023 8:25 AM EDT - 10/22/2023 8:50 AM EDT Surgery OR [facility], Operating Room [facility] [address] [place] [phone] Karthikeyan Larios, [address] [place] [address] INJECTION SPINE LUMBAR CERVICAL OR THORACIC 11/12/2023 9:00 AM EDT Office Visit [facility] [address] [place] [phone] Maria Fernanda Pisano MD [address], [place] [phone] Scheduled Procedures Name Priority Associated Diagnoses Date/Ti [...] 10/01/2017 Depression Screening 03/23/2023 03/23/2022 COVID-19 Vaccine ( season) 2023 07/16/2021, 10/04/2020 Influenza Vaccine (FLU [...] D LEVEL ONCE IN A LIFETIME-USE SMARTSET# [id number] Completed 07/23/2023, 07/11/2018, 06/30/2011 GARDASIL-HPV IMMUNIZATION SERIES Aged Out No longer eligible based on patient's age to complete this topic MENINGOCOCCAL (MENACTRA/MENVEO) Aged Out No longer eligible based on patient's age to complete this topic documented as of this encounter Medical Devices Implanted Type Area Warp Spooler Device Identifier Shelf Expiration Date Model / Serial / Lot [place] [employer] [id number] - [id number] Implanted:Qty: 2 on 01/19/2019 by iNmisha Chin DPM at OR [facility] Right: Foot [employer] 05/25/2020 [id number] / / [id number] Internal Brace Ligament Augmentaion Repair Implanted:Qty: 1 on 01/19/2019 by Nimisha Chin DPM at OR [facility] Right: Foot 11/22/2020 [id number] / / [id number] documented as of this encounter Visit Diagnoses Diagnosis Cervical radicular pain Brachial neuritis or radiculitis nos Cervical radiculitis Brachial neuritis or radiculitis nos documented in this encounter Care Teams Revenue Stamper Relationship Specialty Start Date End Date Maria Fernanda Pisano MD [address] [place] [address] PCP - General Family Medicine 03/23/22 documented as of this encounter
--- OUTSIDE RECORDS SUMMARY | 2023-11-03 09:32 | External Medical Summary | Summary of Care ---
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 Name Role Phone Maria Fernanda Pisano MD Primary Care Provid er Reason for Visit * Reason Comments Neck Pain Encounter Details Date Type Department Care Team (Late st Contact Info) Description 08/11/2023 12:30 PM EST Office Visit [facility], [facility] [address] [place] [address] Patricia Sommer PA-C [address] [place] [address] Cervical radicular pain* Allergies Active Allergy Reactions Criticality Noted Date Comments Chlorhexidine Gluconate Itching,Rash 09/19/2013 documented as of this encounter (statuses as of 08/11/2023) Medications Medication Sig Dispensed Refills Start Date [...] as of this encounter (statuses as of 08/11/2023) Active Problems Problem Noted Date Diagnosed Date [...] as of this encounter (statuses as of 08/11/2023) Resolved Problems Problem Noted Date Diagnosed Date [...] as of this encounter (statuses as of 08/11/2023) Immunizations Name Administration Dates Next Due COVID-19, [...] of this encounter Progress Notes * Patricia Sommer PA-C - 08/11/2023 12:28 PM EST GENERAL HISTORY & PHYSICAL EXAMINATION - Anesthesia and Pain Service Name: Gerri Shine Location: [facility], [facility] REFERRING PHYSICIAN: Evette Galvez MD Thank you for referring Gerri Shine. CHIEF COMPLAINT: Neck and R UE pain HPI: Gerri Shine is a 52 year old female who complains of neck pain that radiates to periscapular region and UE extending to forearm. This pain started more than four years ago without preceding injury. With further kali review EMG B UE 2018 - negative for neuropathy, sensory or motor polyneuropathy or cervical radiculopathy. Persistent pain and paresthesia, worse in the past year. [facility] C [facility] and recommend consideration of injection. Mild relief with conservative care including physical therapy ([facility],) care team coordinator scheduler (including traction for a number of years,) home stretching program, massage therapy. Symptoms occur daily. Describes pain as burning, tingling. Pain is constant, rated 5/10. R hand dominate. Aggravating factors include: neck flexion, driving. Alleviating factors include: stretching. Pain is affecting ADL - difficulty sleeping. Admits associated paresthesia R lateral forearm- does not extend to hand. Denies UE weakness or dexterity changes. Denies bowel or bladder incontinence. Denies hx spine surgery or injections. Reviewed C spine MRI 07/22/23 - loss of cervical lordosis, no cord signal changes, disc osteophyte complex C5/6 causing R central protrusion and mild foraminal and central stenosis, mild annular bulge C6/7 without foraminal narrowing. Incidental finding thyroid nodule - schedule [facility]. Significant past medical hx includes: peripheral neuropathy, osteoporosis. Current medications used for pain: mobic. Past medications used for pain: tylenol, ibuprofen, voltaren gel. Anticoagulation therapy: no Prediabetic, most recent HbA1c 6.26 Apr 2023 +++ allergy to chloraprep -- rash and itching of L ankle with previous surgery. Denies SOB, difficulty breathing, facial edema Of note, upcoming L ankle surgery in [place] 10/04/23. PAST MEDICAL HISTORY: Past Medical History: Diagnosis Date Allergic rhinitis Bronchospasm, exercise-induced 01/05/2005 Dyslipidemia 10/28/2017 Hereditary and idiopathic peripheral neuropathy 07/04/2008 High risk for fracture due to osteoporosis by DEXA scan 10/30/2010 MENOPAUSE SURGICALLY INDUCED 06/06/1998 Past Medical History - Pertinent Findings: (-) clotting disorder PAST SURGICAL HISTORY: Past Surgical History: Procedure Laterality Date COLONOSCOPY W/ BIOPSY (RECTUM) 07/23/2010 bxs COLONOSCOPY, DIAGNOSTIC (RECTUM) 06/24/2021 normal, repeat 5 yrs / COLONOSCOPY FLEXIBLE PROXIMAL DIAGNOSTIC performed by Racheal Montes De Oca MD at ENDOSCOPY [facility] FOLLOWUP REPAIR OF ANKLE LIGAMENT Right 01/19/2019 REPAIR SECONDARY LIGAMENT ANKLE COLLATERAL performed by Nimisha Chin DPM at OR [facility] INJ 1 TENDON SHEATH LIGAMENT Right 01/19/2019 INJECTION TENDON SHEATH OR LIGAMENT APONEUROSIS performed by Nimisha Chin DPM at OR [facility] TOTAL ABD HYSTERECTOMY W/WO REMOVAL OF TUBE(S) 1996 TOTAL HYSTERECTOMY FAMILY HISTORY: Family History Problem Relation Age of Onset Allergies Son Alcohol and Other Disorders Associated Son Asthma Son Allergies Sister Asthma Sister Cancer Mother Alcohol and Other Disorders Associated Father from Scerosis if the liver and prostate cancer Hypertension Father Cancer Father Diabetes Father Obesity Father Cancer Grandfather (Maternal) Stroke Grandmother (Maternal) , age 95, 2009 Family History - Pertinent Findings: (-) clotting disorder SOCIAL HISTORY: Social History Tobacco Use Smoking status: Former Packs/day: 0.50 Years: 2.00 Additional pack years: 0.00 Total pack years: 1.00 Types: Cigarettes Quit date: 07/26/1989 Years since quittin.0 Smokeless tobacco: Former Quit date: 1989 Tobacco comments: no passive smoke exposure Substance Use Topics Alcohol use: Yes Comment: rare; 1-2 drinks/month Drug use: No CURRENT MEDICATIONS: Note that discontinued and completed medications (per the MAR) continue to display for 24 hours. Ordered medications to be given in the future also display. Current Outpatient Medications Medication Sig Dispense Refill montelukast (SINGULAIR) 10 MG Tablet Take 1 Tab by mouth daily. 30 Tab 11 Cetirizine HCl 10 MG Oral Capsule Take 1 Capsule by mouth in the morning. Meloxicam 15 MG Oral Tablet Take 1 Tab by mouth daily. for pain. (Patient not taking: Reported on 05/07/2023) 30 Tab 11 Mometasone Furoate 50 MCG/ACT Nasal Suspension (Nasonex) Administer 2 Sprays into each nostril daily. (Patient not taking: Reported on 09/22/2021) 17 g 6 Albuterol Sulfate HFA 108 [...] Take 2 Tablets by mouth at bedtime. No current facility-administered medications for this visit. ALLERGIES: Chloraprep one step [chlorhexidine gluconate] ROS: Constitutional: Negative for fatigue, fever, appetite change, unexplained weight loss. ENT: Negative for hearing loss, sore throat. Respiratory: Negative for cough, shortness of breath, dyspnea. Musculoskeletal: Negative for mid-back or low back pain. + neck and R UE pain - see HPI Neurological: Negative for headaches, seizures. + paresthesias R UE - see HPI Genitourinary: Negative for dysuria, urinary frequency, hematuria. Hematologic/ Lymphatic: Negative for easy bleeding, bruising, lymphadenopathy. Gastrointestinal: Negative for abdominal pain, nausea, vomiting, constipation, diarrhea. Cardiovascular: Negative for chest pain, palpitations, ankle swelling, orthopnea. PHYSICAL EXAMINATION: Most Recent Vital Signs: There were no vitals filed for this visit. General Appearance: Patient appears to be about stated age, pleasant and cooperative with normal affect. HEENT: head normocephalic, pupils equal round and reactive to light and accommodation, EOMI, hearing intact and equal bilaterally, and nose clear, throat normal Chest: No gross abnormality. Nonlabored breathing. Cervical Spine: Normal cervical lordatic curvature is present. No masses palpable. Midline nontender. + B paraspinal tenderness with trigger points noted B trapezius. Full active ROM with flexion, extension, rotation and lateral bending bilaterally. Cervical Spine Provocative Testing: Spurling's Test: positive R, negative L Cervical Facet Loading: mildly positive bilaterally B Shoulder: No obvious deformity. No muscle atrophy. Sternoclavicular joint, clavicle, scapular spine and AC joint nontender bilaterally. Full active and passive ROM flexion, extension, adduction, abduction, internal rotation, external rotation - does not reproduce R UE pain or paresthesia. Extremity Strength: Shoulder abduction: 5/5 bilaterally Elbow Extension: 5/5 bilaterally Elbow Flexion: 5/5 bilaterally Water Reuse Program Manager: Equal and symmetric Hip Flexion: 5/5 bilaterally Hip Adduction: 5/5 bilaterally Hip Abduction: 5/5 bilaterally Great Toe Extension: 5/5 bilaterally Deep Tendon Reflex: Biceps: 2/4 bilaterally Triceps: 2/4 bilaterally Brachioradialis: 2/4 bilaterally Patellar: 2/4 bilaterally Achilles: 1/4 bilaterally Sensation: Dermatomal sensation not formally tested. Grossly normal and symmetric unless otherwise specified. Gait: Intact, no sign of ataxia. Ambulates without assistance. IMAGING: Reviewed C spine MRI 07/22/23 - loss of cervical lordosis, no cord signal changes, disc osteophyte complex C5/6 causing R central protrusion and mild foraminal and central stenosis, mild annular bulge C6/7 without foraminal narrowing. ASSESSMENT: Cervical epidural steroid injection PLAN: Persistent neck pain that radiates to UE, extending to forearm. Associated paresthesia despite conservative care including PT, chiropractic manipulation, HEP. Personally reviewed C spine MRI 07/22/23- loss of cervical lordosis, no cord signal changes, disc osteophyte complex C5/6 causing R centralprotrusion and mild foraminal and central stenosis, mild annular bulge C6/7 without foraminal narrowing. Discussed JUDY using fluoroscopy. Risks including, but not limited to, bleeding, infection, worsening pain, failure to alleviate pain, nerve injury and possible steroid side effects were reviewed. + allergy to chloraprep -- rash and itching of L ankle with previous surgery. Denies SOB, difficulty breathing, facial edema. Pre-procedure instructions reviewed, reiterated need for cryogenic transport driver, will stop NSAID three days prior. Due to severity and duration of symptoms, will schedule right interlaminar JUDY C7/T1. Follow up six weeks after procedure. In the meantime, will trial gabapentin. She feels this was used in the past for ankle pain. Denies unwanted side effects. Will start with 100 mg QHS for three days then increase to one capsule BID. Aware we may need to further titrate. Possible side effects such as increased fatigue, drowsiness or dizziness were reviewed and accepted. Follow up in three weeks via telephone for med recheck. Patricia Sommer PA-C 08/11/2023 documented in this encounter Nursing Notes * Carolyn Ferrer LPN - 08/11/2023 12:29 PM EST Patient presents with neck and R arm pain for years No hx of spine surgery/injections Has Meloxicam for ankle pain MRI in chart Failed PT/OT/traction/chiro/massage Wakes her up at night/worse with standing documented in this encounter Plan of Treatment Upcoming Encounters Date Type Department Care Team (Latest Contact Info) Description 09/01/2023 3:30 PM EST Telemedicine [facility], [facility] [address] [place] [address] Patricia Sommer PA-C [address] [place] [address] 10/22/2023 8:25 AM EDT Hospital Encounter [facility], Operating Room [facility] [address] [place] [phone] Karthikeyan Larios, DO [address] [place] [phone] 10/22/2023 8:25 AM EDT - 10/22/2023 8:50 AM EDT Surgery [facility], Operating Room [facility] [address] [place] [phone] Karthikeyan Larios, DO [address] [place] [phone] INJECTION SPINE LUMBAR CERVICAL OR THORACIC 11/12/2023 9:00 AM EDT Office Visit [facility] [address] [place] [address] Maria Fernanda Pisano MD [address] [place], [place] [phone] Scheduled Orders Name Type Priority Associated Diagnoses Orde r Schedule INJECT DX/THER SUBSTANCE INTERLAMINAR CERVICAL/THORACIC W IMAGE GUIDE Procedures Routine Cervical radicular pain Expected: 09/11/2023, Expires: 09/11/2024 Scheduled Procedures Name Priority Associated Diagnoses Date/Ti [...] Screening 03/23/2023 03/23/2022 COVID-19 Vaccine (3 - 2023-24 season) 2023 07/16/2021, 10/04/2020 Influenza Vaccine (FLU [...] D LEVEL ONCE IN A LIFETIME-USE SMARTSET# [id number] Completed 07/23/2023, 07/11/2018, 06/30/2011 GARDASIL-HPV IMMUNIZATION SERIES Aged Out No longer eligible based on patient's age to complete this topic MENINGOCOCCAL (MENACTRA/MENVEO) Aged Out No longer eligible based on patient's age to complete this topic documented as of this encounter Medical Devices Implanted Type Area Restaurant Assistant Manager Device Identifier Shelf Expiration Date Model / Serial / Lot Internal Brace Ligament Augmentaion Repair Implanted:Qty: 1 on 01/19/2019 by Nimisha Chin DPM at OR [facility] Right: Foot 11/22/2020 AR-1688-CP / / [id number] documented as of this encounter Visit Diagnoses Diagnosis Cervical radicular pain- Primary Brachial neuritis or radiculitis nos Cervical radiculitis Brachial neuritis or radiculitis nos documented in this encounter Care Teams [employer] Truck Driver Relationship Specialty Start Date End Date Maria Fernanda Pisano MD [address] [place] [address] PCP - General Family Medicine 03/23/22 documented as of this encounter
--- OUTSIDE RECORDS SUMMARY | 2023-11-03 09:32 | External Medical Summary | Summary of Care ---
Author Name Unknown Organization [facility] Address [address] [facility] [place] [address] Phone [phone] Care Team Providers Care Urgent Care Physician Name Role Phone Maria Fernanda Pisano MD Primary Care Provid er Reason for Visit * Reason Onset Date Comments Films 08/12/2023 Encounter Details Date Type Department Care Team (Late st Contact Info) Description 08/12/2023 Telephone Radiology Film File [address] [facility] [place] [address] Maria Fernanda Pisano MD [address] [place] [address] Films Allergies Active Allergy Reactions Criticality Noted Date Comments Chlorhexidine Gluconate Itching,Rash 09/19/2013 documented as of this encounter (statuses as of 08/12/2023) Medications Medication Sig Dispensed Refills Start Date [...] as of this encounter (statuses as of 08/12/2023) Active Problems Problem Noted Date Diagnosed Date [...] as of this encounter (statuses as of 08/12/2023) Resolved Problems Problem Noted Date Diagnosed Date [...] as of this encounter (statuses as of 08/12/2023) Immunizations Name Administration Dates Next Due COVID-19, [...] encounter Miscellaneous Notes * Telephone Encounter - Alesha Yanez OSA - 08/12/2023 8:[address] [facility] office requesting 07-29-23 image(s) [place] Authorization to Release on file. Images pushed to [facility] Life Image account. Job ID: [id number] Associated report(s) not needed. documented in this encounter Plan of Treatment Upcoming Encounters Date Type Department Care Team (Latest Contact Info) Description 09/01/2023 3:30 PM EST Telemedicine Interventional [facility] Center, [facility] [address] [place] [address] Patricia Sommer PA-C [address] [place] [address] 10/22/2023 8:25 AM EDT Hospital Encounter [facility], Operating Room [facility] [address] [place] [phone] Karthikeyan Larios DO [address] [place] [address] 10/22/2023 8:25 AM EDT - 10/22/2023 8:50 AM EDT Surgery [facility], Operating Room [facility] [address] [place] [phone] Karthikeyan Larios, DO [address] [place] [phone] INJECTION SPINE LUMBAR CERVICAL OR THORACIC 11/12/2023 9:00 AM EDT [facility] [address] [facility] [address] Maria Fernanda Pisano MD [address] [place] [facility] [place] [address] Scheduled Procedures Name Priority Associated Diagnoses Date/Ti [...] D LEVEL ONCE IN A LIFETIME-USE SMARTSET# [id number] Completed 07/23/2023, 07/11/2018, 06/30/2011 GARDASIL-HPV IMMUNIZATION SERIES Aged Out No longer eligible based on patient's age to complete this topic MENINGOCOCCAL (MENACTRA/MENVEO) Aged Out No longer eligible based on patient's age to complete this topic documented as of this encounter Medical Devices Implanted Type Area Well Logging Captain Mud Analysis Device Identifier Shelf Expiration Date Model / Serial / Lot Internal Brace Ligament Augmentaion Repair Implanted:Qty: 1 on 01/19/2019 by Nimisha Chin DPM at OR [facility] Right: Foot 11/22/2020 AR-1688-CP / / [id number] documented as of this encounter Care Teams Urgent Care Physician Relationship Specialty Start Date End Date Maria Fernanda Pisano MD [address] [place] [address] PCP - General Family Medicine 03/23/22 documented as of this encounter
--- OUTSIDE RECORDS SUMMARY | 2023-11-03 09:32 | External Medical Summary | Summary of Care ---
Author Name Unknown Organization [facility] Address [address] [facility] [address] Phone [phone] Care Team Providers Care Side Piece Coverer Name Role Phone Maria Fernanda Pisano MD Primary Care Provid er Reason for Visit * Auth/Cert Specialty Diagnoses / Procedures Referred By Tremaine grande Referred To Contact Diagnoses Cervical radiculitis Cervical radiculitis [M54.12] Procedures INJECT DX/THER SUBSTANCE INTERLAMINAR CERVICAL/THORACIC W IMAGE GUIDE INJECTION SPINE LUMBAR CERVICAL OR THORACIC Karthikeyan Larios DO [address] [place] [address] [facility] [address] [place] [address] Referral ID Status Reason Start Date Expiration Date Visits Re quested Visits Authorized [id number] Encounter Details Date Type Department Care Team (Latest Contact Info) Description 10/22/2023 7:47 AM EDT - 10/22/2023 9:14 AM EDT Hospital Encounter OR [facility], Operating Room [facility] [address] [place] [address] Karthikeyan Larios DO [address] [place] [address] (work) Discharge Disposition: Home - Self Care Allergies Active Allergy Reactions Criticality Noted Date Comments Chlorhexidine Gluconate Itching,Rash 09/19/2013 documented as of this encounter (statuses as of 10/22/2023) Medications Medication Sig Dispensed Refills Start Date [...] Oral Capsule (Neurontin)Indicat ions:Cervical radicular pain Take two capsules by mouth AM and two capsules by mouth PM. 120 Capsule 2 10/14/2023 Active Enoxaparin Sodium 40 MG/0.4ML Injection Solution Prefilled Syringe (Lovenox) Inject 40 mg under the skin in the morning and 40 mg before bedtime. Post op surgery . 0 Active documented as of this encounter (statuses as of 10/22/2023) Active Problems Problem Noted Date Diagnosed Date [...] as of this encounter (statuses as of 10/22/2023) Resolved Problems Problem Noted Date Diagnosed Date [...] as of this encounter (statuses as of 10/22/2023) Immunizations Name Administration Dates Next Due COVID-19, [...] Sign Reading Time Taken Comments Blood Pressure 110/69 10/22/2023 9:04 AM EDT Pulse 56 10/22/2023 9:04 AM EDT Temperature 36.6 C (97.8 F) 10/22/2023 9:04 AM ED T Respiratory Rate 18 10/22/2023 9:04 AM EDT Oxygen Saturation 100% 10/22/2023 9:04 AM EDT Inhaled Oxygen Concentration - - Weight - - Height - - Body Mass Index - - documented in this encounter Discharge Instructions * Discharge Instr - AVS* Karthikeyan Larios DO Raheem - 10/22/2023 9:02 AM EDT [facility] [address] [facility] [place] [address] Discharge Date: 10/22/2023 You may call [facility] at [phone] during business hours. For after-hours emergencies call 911. Your attending physician at the time of your discharge was: Karthikeyan Larios DO [address] [place] [address] The information below provides you with the instructions and the list of medications you need to betaking following discharge from the hospital. If you have any questions, please ask before leaving.Please carry this letter with you when you see your doctor in the clinic. Diet: Resume your normal diet If you are diabetic, follow your blood sugars closely for next 2-3 days as they are likely to be elevated. If you are having difficulty controlling your blood sugars call your family doctor or the physician that treats your diabetes. Activity: Do not engage in strenuous activity today Resume your normal activities tomorrow Do not soak in water for 24 hours. No swimming, hot tub or bath but showering is allowed. Do not use heat on the injection site for 24 hours. If uncomfortable ice may be helpful. Some injections may make your arms or legs weak for a few hours. Be extremely careful when walking or changing positions that you do not fall. Have someone assist you for the next 6 hours. If weakness or numbness becomes progressive CALL IMMEDIATELY or GO TO THE NEAREST EMERGENCY ROOM Keep a diary of your pain until seen in the office to help us determine how effective the injectionwas Do not restart physical therapy or chiropractic manipulation until 48 hours after your injection Call : If weakness or numbness suddenly becomes worse or become progressive If the injection site becomes red, swollen, warm to the touch, begins to bleed or drain fluid, or is excessively painful. If you have any questions Medications: Resume all the medications you were taking prior to your injection. Resume your anticoagulants tomorrow unless otherwise instructed by your family physician, composition instructor or the anticoagulation clinic. Additional Instructions: None Driving: You may resume driving in 12-24 hours if no weakness is noted . Date you may return to work or school: N/A Follow Up: Follow-up with Dr. Larios or Patricia Magana PA-C in 6-8 weeks via telehealth or in- person appointment per your preference. documented in this encounter Progress Notes * Karthikeyan Larios DO - 10/22/2023 9:02 AM EDT [facility] [place] [address] [place] [facility] [address] OUTPATIENT SURGERY DISCHARGE SUMMARY NOTE Name: Gerri Shine Location: [place] [facility] Date: 10/22/2023 Time: 9:02 AM Surgery Date: 10/22/2023 Procedure: INJECTION SPINE LUMBAR CERVICAL OR THORACIC No laterality found for procedure #1 Surgeon: Karthikeyan Larios DO Discharge Diagnosis: cervical radicular pain After examination of this patient, I have determined she is ready for discharge to home when the patient meets criteria. Discharge instructions were given to the patient. Karthikeyan Larios DO OR [facility], Operating Room [facility] [address] [place] [address] documented in this encounter H&P Notes * Karthikeyan Larios DO - 10/22/2023 8:29 AM EDT Interventional Pain H&P Subjective: History of Present Illness: Gerri Shine is a 52 year old year-old female with a past medical history significant for cervical radicular pain who is presenting for C7/T1 JUDY to improve her pain and function. her pain is essentially unchanged since our last office visit with her. ASA 3 AW nml Review of Systems: A focused 12-pt ROS were of reviewed with the patient including difficulty with sleep, snoring, aspiration history, dysphagia, stomach pain, nausea and vomiting, severe headaches, confusion, open skin lesions or wounds, chest pain, shortness of breath, excessive thirst, somnolence, dysuria, incomplete bladder emptying, easy bruising, recent clotting problems or bleeding, depression or rushed thoughts unless noted previously. Review of patient's allergies indicates: Allergen Reactions Chloraprep One Step [Chlorhexidine Gluconate] Itching and Rash Medications, Past Medical History, Past Surgical History reviewed and documented in Epic. See detailed report if needed. Pertinent Labs/Test Results: No results found for: "INR" No results found for: "CREATININE" HEMOGLOBIN, [id number] LAB (%) Date Value 04/30/2023 6.2 No results found for: "AMPHETAMINE", "BARBITURATES", "BENZODIAZEPINES", "BUPRENORPHINE", "METHADONE", "OPIATES", "OXYCODONE", "PHENCYCLIDINE", "CANNABINOIDS", "TOX SCREEN", "URINE", "TOX SCREEN-SERUM", "TOX SCREEN, URINE" Imaging: I personally reviewed the imaging and my findings were. RADIOLOGY EXAM - MRI (IMAGES ONLY, NO REPORT) This is an imaging study not interpreted or resulted by a [facility] or [facility] contracted radiologist. Objective Physical Exam: Vital Signs: LMP 08/26/1996 There is no height or weight on file to calculate BMI. General: No apparent distress. Eyes: pupils equal and round, sclera white, pupils midsize. ENT: mucous membranes moist Resp: Non-labored breathing CV: Extremities warm and well-perfused. Psych: Oriented; affect warm, insight good. Skin: No rashes or lesions appreciated on exposed skin Neuromuscular Exam: Facet loading neg, spurling pos Assessment: Gerri is a 52 year old year-old female with: Cervical radicular pain Plan: The patient is undergoing C7/T1 JUDY today to alleviate her pain and improve her function. The risks, benefits and alternatives to the procedure were reviewed at length and the patient was provided the opportunity to ask questions which were answered to their voiced understanding. Following this comprehensive discussion, the patient opted to proceed. The patient was consented to the procedure foll owing this comprehensive conversation. Karthikeyan Larios DO OR [facility], Operating Room [facility] [address] [place] [address] [place] [phone] documented in this encounter Nursing Notes * Jean Villanueva RN - 10/22/2023 9:10 AM EDT Patient to PACU II from pain injection. Patient tolerated injection well. Discharged instructions reviewed with patient. Dr. Larios visits patient. * Bernice Moss RN - 10/22/2023 8:59 AM EDT Pt tolerates procedure well, to post op per w/c. documented in this encounter OR Notes * OR Surgeon - Karthikeyan Larios DO - 10/22/2023 9:01 AM EDT Cervical Interlaminar Epidural Steroid Injection DATE: 10/22/2023 PHYSICIAN: Karthikeyan Larios DO PREOPERATIVE DIAGNOSIS: Cervical spondylosis with cervical radiculopathy. POSTOPERATIVE DIAGNOSIS: Cervical spondylosis with cervical radiculopathy. PROCEDURE PERFORMED: C7-T1 interlaminar epidural steroid injection on the right side. Fluoroscopy for precise needle localization. ANESTHESIA: Local infiltration with lidocaine. MONITORING: Automatic blood pressure cuff, pulse oximetry readily available There was no research program assistant, EBL or drains placed during this procedure. INDICATIONS: We had the pleasure of seeing Gerri Shine ([id number]) in the pain management clinic at the [facility] today. Gerri is a 52 year old year-old female with cervical radiculopathy. The patient is here today for an interlaminar cervical epidural steroid injection. MEDICATIONS: No current facility-administered medications for this encounter. ALLERGIES: Review of patient's allergies indicates: Allergen Reactions Chloraprep One Step [Chlorhexidine Gluconate] Itching and Rash REVIEW OF SYSTEMS: Negative for fever, chills, chest pain, SOB, bleeding abnormalities, nausea, vomiting, diarrhea, worsening edema, or new rashes. FOCUSED PHYSICAL EXAMINATION: The patient is awake, alert and oriented, and is in no acute distress. Vital signs are stable. The patient is afebrile. The rest of the PE is essentially unchanged from the patient's recent visit to our office. I explained the procedure to the patient including the risks, benefits and alternatives to the procedure. The risks discussed with the patient included but were not limited to: bleeding, infection, and damage to surrounding nerves, tissues, and organs, paralysis, increased pain, allergic reaction, blood pressure instability, seizures, heart block, headaches, increase in blood sugar, worsening of glaucoma, blindness, manic episodes, mood instability, pneumothorax, . The patient verbalized understanding and was willing to proceed. Alternatives to the procedure were also explained and include: do nothing, surgery, medications, and physical therapy PROCEDURE IN DETAIL: An informed consent was obtained. The patient was taken to the procedure room and was positively identified by the staff and the physician. The patient was positioned prone on the procedure bed. Vital signs were monitored as above and remained stable throughout the procedure. The skin was prepped and draped in the standard sterile fashion with ChloraPrep. Approximately 30 seconds after prep as we prepared for timeout, we noted that this patient has a chlorhexidine allergy and the prep was washed off thoroughly with water and then with a wet wipe and then dried. The patient was then steriley re-prepped with betadine solution and was draped with towels. At this time, no rash or itchiness was noted upon disclosure to the patient. A surgical pause (time-out) was performed and was agreed upon by the members of the team. A fluoroscopic view of the cervical spine was obtained, and the area of interest was identified. The skin andsubcutaneous tissues were anesthetized using 1% lidocaine and 25-gauge 1-1/2-inch needle. Under fluoroscopic guidance, a 20-gauge 3.5-inch epidural needle was advanced toward the C7-T1 interlaminar window in the right paramedian position. AP and contralateral oblique views were used to guide accurate needle placement. Loss of resistance to air was utilized in order to identify the epidural space and was obtained at 5.5 cm from the skin. The needle's position was additionally verified by injecting iodinated radio-opaque dye, iohexol 240 mg/ml which showed excellent spread of the dye in the epidural space. After negative aspiration for the CSF or blood, 80 mg of triamcinolone and 2mL of preservative-free normal saline was slowly injected into the epidural space. All needles were removed. The patient tolerated the procedure well. COMPLICATIONS: None. DISPOSITION: 1. Return to clinic in 1-2 months for follow-up evaluation, sooner as needed. 2. Resume activity as tolerated. 3. Patient can drive after 12-24 hours if no weakness noted. Karthikeyan Larios DO OR [facility], Operating Room [facility] [address] [place] [address] documented in this encounter Plan of Treatment Upcoming Encounters Date Type Department Care Team (Late st Contact Info) Description 11/12/2023 9:00 AM EDT Office Visit [facility] [address] [place] [address] Maria Fernanda Pisano MD [address] [place] [address] 12/24/2023 11:00 AM EDT Telemedicine Interventional Pain Center, [facility] [address] [place] [address] Patricia Magana PA-C [address] [place] [address] Scheduled Procedures Name Priority Associated Diagnoses Date/Ti me INJECTION SPINE LUMBAR CERVICAL OR THORACIC Cervical radiculitis 10/22/2023 8:45 AM EDT COLONOSCOPY FLEXIBLE PROXIMAL DIAGNOSTIC Recall [...] D LEVEL ONCE IN A LIFETIME-USE SMARTSET# [id number] Completed 07/23/2023, 07/11/2018, 06/30/2011 GARDASIL-HPV IMMUNIZATION SERIES Aged Out No longer eligible based on patient's age to complete this topic MENINGOCOCCAL (MENACTRA/MENVEO) Aged Out No longer eligible based on patient's age to complete this topic documented as of this encounter Medical Devices Implanted Type Area Wood Grinder Device Identifier Shelf Expiration Date Model / Serial / Lot Lock [place] Sm Joint [id number] - [id number] Implanted:Qty: 2 on 01/19/2019 by Nimisha Chin DPM at OR [facility] Right: Foot [employer] 05/25/2020 [id number] / / [id number] Internal Brace Ligament Augmentaion Repair Implanted:Qty: 1 on 01/19/2019 by Nimisha Chin DPM at OR [facility] Right: Foot 11/22/2020 AR-1688-CP / / [id number] documented as of this encounter Procedures Procedure Name Priority Date/Time Associated Diagnosis Comments FLUORO INTERVENTIONAL PAIN PROCEDURE NONBILLABLE Routine 10/22/2023 9:08 AM EDT documented in this encounter Results * FLUORO INTERVENTIONAL PAIN PROCEDURE NONBILLABLE (10/22/2023 9:08 AM EDT) Narrative Scheduling, Silent - 10/22/2023 9:08 AM EDT This procedure will not be read by a Radiologist. Please see operative note. Karthikeyan Larios DO RAD FLUOROSCOPY documented in this encounter Administered Medications Inactive Administered Medications - up to 3 most recent administrations Medication Order MAR Action Action Date Dose Rate Site Iohexol (Omnipaque 240) inj 0.25 mL 0.25 mL, Epidural, ONCE, On Wed10/22/23 at 0900, For 1 dose, For cervical epidural Given 10/22/2023 8:58 AM EDT 1 mL lidocaine 1 % inj 15 mg 15 mg (1.5 mL), Subcutaneous, ONCE, On Wed10/22/23 at 0900, For 1 dose Given 10/22/2023 8:56 AM EDT 3 mL Other-Specify Triamcinolone Acetonide (Kenalog) 40 MG/ML inj 40 mg 40 mg, Injection, ONCE, On Wed10/22/23 at 0900, For 1 dose Given 10/22/2023 8:59 AM EDT 80 mg documented in this encounter Active and Recently Administered Medications Times are shown in EDT. Scheduled Medication Order 10/20/2023 10/21/2023 10/22/2023 Iohexol (Omnipaque 240) inj 0.25 mL (COMPLETED) 0.25 mL, Epidural, ONCE, On Wed10/22/23 at 0900, For 1 dose, For cervical epidural 0858 (Given - Provid er: Bernice Moss RN) lidocaine 1 % inj 15 mg (COMPLETED) 15 mg (1.5 mL), Subcutaneous, ONCE, On Wed10/22/23 at 0900, For 1 dose 0856 (Given - Provid er: Bernice Moss RN) Triamcinolone Acetonide (Kenalog) 40 MG/ML inj 40 mg (COMPLETED) 40 mg, Injection, ONCE, On Wed10/22/23 at 0900, For 1 dose 0859 (Given - Provid er: Bernice Moss RN) documented in this encounter Care Teams Side Piece Coverer Relationship Specialty Start Date End Date Maria Fernanda Pisano MD [address] [place] [address] PCP - General Family Medicine 03/23/22 documented as of this encounter
--- OUTSIDE RECORDS SUMMARY | 2023-11-03 09:32 | External Medical Summary | Summary of Care ---
Author Name Unknown Organization [facility] Address [address] [place] [facility] [place] [address] Phone [phone] Care Team Providers Care Real Estate Transaction Manager Name Role Phone Maria Fernanda Pisano MD Primary Care Provid er Reason for Referral * Evaluate & Treat - Unlimited Visits (Within 30 days (routine)) - Pending Review Specialty Diagnoses / Procedures Referred By Tremaine grande Referred To Contact Otolaryngology Diagnoses Thyroid nodule Maria Fernanda Pisano MD [address] [place] [facility] [place] [address] Referral ID Status Reason Start Date Expiration Date Visits Requested Visits Authorized [id number] Pending Review Specialty Services Required 08/05/[phone] Question Answer Referral Priority Within 30 days (routine) Where should this appointment be scheduled? ising Reason for Referral Thyroid/Parathyroid/Oral Lesions/Head/Neck/Cancer Conditions Specific Condition: Thyroid Has the patient had a Ultrasound Head/Neck and a TSHw/Free T4 in the past 6 months? Yes Encounter Details Date Type Department Care Team ([facility] st Contact Info) Description [facility]/05[facility] [address] [facility] [phone] Maria Fernanda Pisano [facility] [address] [facility] [address] Allergies Active Allergy Reactions Criticality Noted Date Comments Chlorhexidine Gluconate Itching,Rash 09/19/2013 documented as of this encounter (statuses as of 08/05/2023) Medications Medication Sig Dispensed Refills Start Date [...] by mouth at bedtime. 0 07/27/2023 Active documented as of this encounter (statuses as of 08/05/2023) Active Problems Problem Noted Date Diagnosed Date [...] as of this encounter (statuses as of 08/05/2023) Resolved Problems Problem Noted Date Diagnosed Date [...] as of this encounter (statuses as of 08/05/2023) Immunizations Name Administration Dates Next Due COVID-19, mRNA, LNP-s, PF, B ooster, 100mcg/0.5mg (Moderna) 07/16/2021 Covid-19 Ad26, Single Dose ([employer]) 10/04/2020 H1N1 2009 Influenza, IM 05/28/2009 Pneumococcal [...] encounter Miscellaneous Notes * Telephone Encounter - Maria Fernanda Pisano MD - 08/05/2023 3:32 PM EST See myG ENT referral placed documented in this encounter Plan of Treatment Upcoming Encounters Date Type Department Care Team (Late st Contact Info) Description 08/11/2023 12:30 PM EST Office Visit Interventional Pain Center, [facility] [address] [place] [address] Patricia Sommer PA-C [address] [place] [address] 11/12/2023 9:00 AM EDT Office Visit [facility] [address] [place] [address] Maria Fernanda Pisano MD [address] [place] [address] Scheduled Procedures Name Priority Associated Diagnoses Date/Ti me COLONOSCOPY FLEXIBLE PROXIMA L DIAGNOSTIC Recall Family history of colon cancer Scheduled Referrals Name Type Priority Associated Diagnoses Order Schedule OTOLARYNGOLOGY REFERRAL OP Referral Within 30 days (routine) Thyroid nodule Ordered: 08/05/2023 Health Maintenance Due Date Last Done Comments [...] D LEVEL ONCE IN A LIFETIME-USE SMARTSET# [id number] Completed 07/23/2023, 07/11/2018, 06/30/2011 GARDASIL-HPV IMMUNIZATION SERIES Aged Out No longer eligible based on patient's age to complete this topic MENINGOCOCCAL (MENACTRA/MENVEO) Aged Out No longer eligible based on patient's age to complete this topic documented as of this encounter Medical Devices Implanted Type Area Rubber Belt Splicer Device Identifier Shelf Expiration Date Model / Serial / Lot Internal Brace Ligament Augmentaion Repair Implanted:Qty: 1 on 01/19/2019 by Nimisha Chin DPM at OR [facility] Right: Foot 11/22/2020 AR-1688-CP / / [id number] documented as of this encounter Visit Diagnoses Diagnosis Thyroid nodule- Primary Nontoxic uninodular goiter documented in this encounter Care Teams Real Estate Transaction Manager Relationship Specialty Start Date End Date Maria Fernanda Pisano MD [address] [place] [facility] [place] [facility] [place] [address] PCP - General Family Medicine 03/23/22 documented as of this encounter
--- OUTSIDE RECORDS SUMMARY | 2023-11-03 09:32 | External Medical Summary | Summary of Care ---
Author Name Unknown Organization [facility] Address [address] [place] [address] Phone [phone] Care Team Providers Care Net Mobile Developer Name Role Phone Maria Fernanda Pisano MD Primary Care Provid er Encounter Details Date Type Department Care Team (Latest Contact Info) Description 07/22/2023 4:40 PM EST - 07/22/2023 11:59 PM EST Hospital Encounter Radiology Film File [address] [facility] [place] [address] Discharge Disposition: Home - Self Care Allergies Active Allergy Reactions Criticality Noted Date Comments Chlorhexidine Gluconate Itching,Rash 09/19/2013 documented as of this encounter (statuses as of 08/07/2023) Medications Medication Sig Dispensed Refills Start Date [...] as of this encounter (statuses as of 08/07/2023) Active Problems Problem Noted Date Diagnosed Date [...] as of this encounter (statuses as of 08/07/2023) Resolved Problems Problem Noted Date Diagnosed Date [...] as of this encounter (statuses as of 08/07/2023) Immunizations Name Administration Dates Next Due COVID-19, [...] PM EST Office Visit Interventional Pain Center, [facility] [address] [place] [address] Patricia Sommer PA-C [address] [place] [address] 11/12/2023 9:00 AM EDT Office Visit [facility] [address] [place] [facility] [place] [phone] Maria Fernanda Pisano MD [address] [place], [place] [phone] Scheduled Procedures Name Priority Associated Diagnoses Date/Ti [...] D LEVEL ONCE IN A LIFETIME-USE SMARTSET# [id number] Completed 07/23/2023, 07/11/2018, 06/30/2011 GARDASIL-HPV IMMUNIZATION SERIES Aged Out No longer eligible based on patient's age to complete this topic MENINGOCOCCAL (MENACTRA/MENVEO) Aged Out No longer eligible based on patient's age to complete this topic documented as of this encounter Medical Devices Implanted Type Area Finisher Merchant Products Device Identifier Shelf Expiration Date Model / Serial / Lot Internal Brace Ligament Augmentaion Repair Implanted:Qty: 1 on 01/19/2019 by Nimisha Chin DPM at OR [facility] Right: Foot 11/22/2020 AR-1688-CP / / [id number] documented as of this encounter Procedures Procedure [...] MRI-MRA documented in this encounter Care Teams Net Mobile Developer Relationship Specialty Start Date End Date Maria Fernanda Pisano MD [address] [place] [address] PCP - General Family Medicine 03/23/22 documented as of this encounter
--- OUTSIDE RECORDS SUMMARY | 2023-11-03 09:32 | External Medical Summary | Summary of Care ---
Author Name Unknown Organization [facility] Address [address] [place] [address] Phone [phone] Care Team Providers Care Auger Press Operator Name Role Phone Maria Fernanda Pisano MD Primary Care Provid er Reason for Visit * Reason Comments Outpatient Testing Encounter Details Date Type Department Care Team (Late st Contact Info) Description 07/23/2023 3:30 PM EST Laboratory Outpatient Laboratory, [place] [address] [facility] [place] [phone] [place], Lab [address] [place] [address] Age-related osteoporosis without current pathological fracture Allergies Active Allergy Reactions Criticality Noted Date Comments Chlorhexidine Gluconate Itching,Rash 09/19/2013 documented as of this encounter (statuses as of 07/23/2023) Medications Medication Sig Dispensed Refills Start Date End Date Status montelukast (SINGULAIR) 10 MG TabletIndications:B ronchitis with bronchospasm Take 1 Tab by mouth daily. 30 Tab 11 07/27/2018 Active Cetirizine HCl 10 MG Oral Capsule Take 1 Capsule by mouth in the morning. 0 01/17/2019 Active cholecalciferol, VIT D3, (VITAMIN D3) 1000 UNITS Tablet Take 1 Tablet by mouth at bedtime. 0 Active Meloxicam 15 MG Oral Tablet Take [...] as of this encounter (statuses as of 07/23/2023) Active Problems Problem Noted Date Diagnosed Date [...] as of this encounter (statuses as of 07/23/2023) Resolved Problems Problem Noted Date Diagnosed Date [...] as of this encounter (statuses as of 07/23/2023) Immunizations Name Administration Dates Next Due COVID-19, [...] Description 11/12/2023 9:00 AM EDT Office Visit [facility] [address] [place] [address] Maria Fernanda Pisano MD [address] [place] [address] Pending Results Name Type Priority Associated Diagnoses Date /Time SERUM PROTEIN ELECTROPHORESIS REFLEX PROFILE Lab Routine Age-related osteoporosis without current pathological fracture 07/23/2023 3:30 PM EST TISSUE TRANSGLUTAMINASE IGA ANTIBODY Lab Routine Age-related osteoporosis without current pathological fracture 07/23/2023 3:30 PM EST IGA Lab Routine Age-related osteoporosis without current pathological fracture 07/23/2023 3:30 PM EST CALCIUM Lab Routine Age-related osteoporosis without current pathological fracture 07/23/2023 3:30 PM EST CREATININE Lab Routine Age-related osteoporosis without current pathological fracture 07/23/2023 3:30 PM EST CALCIUM, RANDOM URINE Lab Routine Age-related osteoporosis without current pathological fracture 07/23/2023 3:30 PM EST CREATININE, RANDOM URINE Lab Routine Age-related osteoporosis without current pathological fracture 07/23/2023 3:30 PM EST Scheduled Procedures Name Priority Associated Diagnoses Date/Ti [...] 04/30/2028 04/30/2023, 0809/2019, 07/11/2018, Additional history exists VITAMIN D LEVEL ONCE IN A LIFETIME-USE SMARTSET# [id number] Completed 07/11/2018, 06/30/2011 Zoster Vaccines Completed 06/11/2020, 05/26, 02/28/2020, Additional history exists GARDASIL-HPV IMMUNIZATION SERIES Aged Out No longer eligible based on patient's age to complete this topic MENINGOCOCCAL (MENACTRA/MENVEO) Aged Out No longer eligible based on patient's age to complete this topic documented as of this encounter Medical Devices Implanted Type Area Gis Professor Device Identifier Shelf Expiration Date Model / Serial / Lot Internal Brace Ligament Augmentaion Repair Implanted:Qty: 1 on 01/19/2019 by Nimisha Chin DPM at OR [facility] Right: Foot 11/22/2020 [id number] / / [id number] documented as of this encounter Visit Diagnoses Diagnosis Age-related osteoporosis without current pathological fracture Senile osteoporosis documented in this encounter Care Teams Auger Press Operator Relationship Specialty Start Date End Date Maria Fernanda Pisano MD [address] [place] [address] PCP - General Family Medicine 03/23/22 documented as of this encounter
--- OUTSIDE RECORDS SUMMARY | 2023-11-03 09:33 | External Medical Summary | Summary of Care ---
Author Name Unknown Organization [facility] Address [address] [facility] [place] [address] Phone [phone] Care [address] Magistrate Name Role Phone Maria Fernanda Pisano MD Primary Care Provid er Reason for Referral * Evaluate & Treat - Unlimited Visits (Within 10 days (routine)) - Pending Review Specialty Diagnoses / Procedures Referred By Tremaine grande Referred To Contact Rheumatology Diagnoses Osteoporosis without current pathological fracture, unspecified osteoporosis type Maria Fernanda Pisano MD [address] [place] [address] Referral ID Status Reason Start Date Expiration Date Visits Requested Visits Authorized [id number] Pending Review Specialty Services Required [phone] Question Answer Referral Priority Within 10 days (routine) Where should this appointment be scheduled? [facility] Reason for Visit * Reason Comments Follow Up Encounter Details Date Type Department Care Team (Late st Contact Info) Description 07/05/2023 11:40 AM EST Telemedicine [facility] [address] [place] [address] Maria Fernanda Pisano MD [address] [place] [address] Osteoporosis without current pathological fracture, unspecified osteoporosis type* Allergies Active Allergy Reactions Criticality Noted Date Comments Chlorhexidine Gluconate Itching,Rash 09/19/2013 documented as of this encounter (statuses as of 07/05/2023) Medications Medication Sig Dispensed Refills Start Date End Date Status montelukast (SINGULAIR) 10 MG TabletIndications:B ronchitis with bronchospasm Take 1 Tab by mouth daily. 30 Tab 11 07/27/2018 Active Additional Information Patient not taking.Reported on 05/07/2023 Cetirizine HCl 10 MG Oral Capsule Take [...] Active Additional Information Patient not taking.Reported on 09/22/2021 Albuterol Sulfate HFA 108 (90 Base) MCG/ACT Inhalation Aerosol Solution Inhale 2 Puffs by mouth every 4 hours as needed for Cough, Shortness of Breath or Wheezing (And prior exercise). 0 05/05/2021 Active EPINEPHrine 0.3 MG/0.3ML Injection Solution Auto-injector (Autoinjector) For a severe reaction: Inject in outer thigh following instructions on package and go to the Emergency room. 2 Each 3 05/05/2021 Active Additional Information Patient not taking.Reported on 06/13/2021 Atorvastatin Calcium 20 MG Oral Tablet (Lipitor)Indication s:Dyslipidemia Take 1 Tablet by mouth in the morning. 90 Tablet 1 03/16/2023 Active documented as of this encounter (statuses as of 07/05/2023) Active Problems Problem Noted Date Diagnosed Date [...] as of this encounter (statuses as of 07/05/2023) Resolved Problems Problem Noted Date Diagnosed Date [...] as of this encounter (statuses as of 07/05/2023) Immunizations Name Administration Dates Next Due COVID-19, mRNA, LNP-s, PF, B ooster, 100mcg/0.5mg (Moderna) 07/16/2021 Covid-19 Ad26, Single Dose (Bailee/J&J) 10/04/2020 H1N1 2009 Influenza, IM 05/28/2009 Pneumococcal Polysaccharide PPV23 (Pneumovax) 03/28/2020,10/01/2017 SEASONAL INFLUENZA, PF, 6 M & Above, IM , (FLULAVAL or FLUZONE) 05/05/2021,05/29/2020 Seasonal Influenza Virus Vac cine, Unspecified Formulation 04/17/2019,05/22/2013,05/30/2011 Seasonal Influenza, Recombin ant, RIV4, PF, (Flublock) [...] as of this encounter Progress Notes * Maria Fernanda Pisano MD - 07/05/2023 11:56 AM EST Images from the original note were not included. ASSESSMENT / PLAN: Gerri Shine is a 52 year old female with PMHx polyarthropathy / osteoporosis / allergic rhinitis and asthma / dyslipidemia / food allergies keeps Epi pen handy / prediabetes - here to review recent dexa scan Osteoporosis, history of (since 2010 or age 40) Dexa recheck shows osteoporosis Vit D and calcium adequate on last labs Has taken fosamax in 2010 and 2014 Reviewed weight lifting exercise, continue vit D supplementation (2000 units daily) and calcium intake (both appear to be adequate on last check) She is agreeable to referral Osteoporosis without current pathological fracture, unspecified osteoporosis type (Primary) - HIGH RISK OSTEOPOROSIS CLINIC REFERRAL OP Subjective: Gerri Shine is a 52 year old female. No chief complaint on file. Scheduling Notes: Talk Dexa Scan discussion MYG Arrival Time: 11:13 AM Patient location: HOME. I was in a hospital or clinic location. After connecting through [employer],patient was verified with two unique identifiers. Patient (or authorized legal telemarketing sales representative) was then informed that this was a Telemedicine visit and being conducted confidentially over secure lines. Methods to assure confidentiality were taken. Patient acknowledged consent and understanding of pr ivacy and security of the Telemedicine visit. The patient agreed to participate. HPI: here video visit to review abnl dexa Shows recurrence/worsening First showed at age 40 Has been on fosamax twice in 2010 and 2014 , 1 year each. Has not been to rheumatology yet Mother of leukemia age 61 and is unsure of any osteoporosis FH x Labs from Apr 2023 show normal vit D and calcium and kidney function She takes 3620-7204 units Vit D daily Not currently exercising but aims to Radiology, [facility] DXA Performed: 06/10/23 DXA Resulted: 06/11/2023 Gerri Shine Reason for testing: estrogen deficient woman at clinical risk Osteoporosis treatment (per questionnaire): A. Previous treatment: Fosamax/Alendronate B. Current treatment: NONE Major risk factors: personal history of fracture after age 50 Using a [facility] images of the lumbar spine, left hip were obtained using DXA.. The bone mineral density and T scores [standard, young, normal, female population] are as follows: RESULTS: Lumbar spine: 0.727 gms/cm2 T-score: -2.9 Z-score: -1.9 Left total hip: 0.738 gms/cm2 T-score: -1.7 FRAX not indicated. IMPRESSIONS: Fracture risk is based on current National Osteoporosis Foundation (www.nof.org) Clinicians Guide and [place] Association of Clinical Endocrinology (AACE) Guidelines (www.aace.com) and the application of current WHO FRAX tool (https://www.vale.ac.uk/FRAX/) as well as the 2017 [place] [employer]umatology Glucocorticoid Induced Osteoporosis (GIOP) Guidelines (rheumatology.org/Practice-Martir lity/Clinical-Support/Qxveqxiq-Aoesmyex-Xppqrlukkt) using Bone mineral density derived T-scores andclinical risk factors obtained from the patient questionnaire. 1. The fracture risk is HIGH (based on T-score at or below -2.5) 2. The quality of the examination is GOOD. 3. No previous study for comparison. The low Z-score reflects a low bone mineral density compared to age, and gender- matched controls. SUGGESTIONS: Information concerning the evaluation and treatment of osteoporosis can be found at the National Osteoporosis Foundation website (www.nof.org) and [place] Association of Clinical Endocrinology (AACE-www.aace.com). Osteoporosis prevention and treatment begins by modifying risk factors (such as smoking cessation and avoiding alcohol excess) and by participating in weight-bearing activities and exercise. Issues related to fall prevention and home safety should be addressed. Current NOF guidelinessuggest 1200 to 1500 mg of calcium from diet and or supplemental sources. It is generally felt bestto get calcium from ones diet. Calcium carbonate and calcium citrate are common calcium supplement choices in most local pharmacies. If the patient is taking a proton pump inhibitor, then calcium citrate should be the preferred supplement, if that is necessary. NOF guidelines for vitamin D are 800 to 1000 units of vitamin D3 daily. However, this may best be guided by measurement of 25-OH vitamin-D level, aiming for a level between 30 to 50 units (ng/ml). Additional information can be found at the FRAX website (https://www.vale.ac.uk/FRAX/), and the [place] College of Rheumatology website (https://www.rheumatology.org/Practice-Quality/Clinical-Support/Clinical-Practic e-Guidelines). 1. Treatment with a bisphosphonate (such as Fosamax/Alendronate, Actonel/Risedronate, or Boniva/Ibandronate) should be considered. If the patient is unable to use an oral bisphosphonate, another agent such as IV bisphosphonates (Boniva/Ibandronate or Reclast/Zoledronic Acid ), Prolia/Denosumab Forteo/Teriparatide, Tymlos/Abaloparatide, Evenity/Romosozumab, or a selective estrogen receptor modulator (Evista/Raloxifene) should be considered. Secondary causes of low bone density should be considered. A 25-OH Vitamin D, serum calcium, and creatinine should be obtained. Other studies can be considered which would include a PTH, IEP, TSH, or Testosterone (in men). (For users of [facility], there is an osteoporosis Smart Set #1146). 2. Given the patient's Z-score (comparison with age matched controls) which is below 1.0, one should consider secondary causes of low bone mineral density. A 25-OH Vitamin D, serum calcium, and creatinine should be obtained. Other studies can be considered which would include a PTH, IEP, TSH, or Testosterone (in men). For [facility] Providers, use the OSTEOPOROSIS Smart Set [1146] 3. A repeat study should be considered in 2 years, after therapy is started PENNY SIMPSON M.D. ISCD Certified Clinical Marketing Compliance Manager Department of Rheumatology [facility] Patient Active Problem List Diagnosis Code Allergic [...] Tablet Take 1 Tab by mouth daily. (Patient not taking: Reported on 05/07/2023) 30 Tab 11 Cetirizine HCl 10 MG Oral Capsule Take 1 Capsule by mouth in the morning. cholecalciferol, VIT D3, (VITAMIN D3) 1000 UNITS Tablet Take 1 Tablet by mouth at bedtime. Meloxicam 15 MG Oral Tablet Take 1 Tab by mouth daily. for pain. (Patient not taking: Reported on 05/07/2023) 30 Tab 11 Mometasone Furoate 50 MCG/ACT Nasal Suspension (Nasonex) Administer 2 Sprays into each nostril daily. (Patient not taking: Reported on 09/22/2021 ) 17 g 6 Albuterol Sulfate HFA 108 (90 Base) MCG/ACT Inhalation Aerosol Solution Inhale 2 Puffs by mouth every 4 hours as needed for Cough, Shortness of Breath or Wheezing (And prior exercise). EPINEPHrine 0.3 MG/0.3ML Injection Solution Auto-injector (Autoinjector) For a severe reaction: Inject in outer thigh following instructions on package and go to the Emergency room. (Patient not taking: Reported on 06/13/2021) 2 Each 3 Atorvastatin Calcium 20 MG Oral Tablet (Lipitor) Take 1 Tablet by mouth in the morning. 90 Tablet 1 No current facility-administered medications for this visit. Objective: General: No acute distress. Neuro: Alert Pleasant & interactive. Respiratory: Good inspiratory effort, no labored breathing. HEENT: Conjunctivae appear clear. No swelling noted face or lips. Skin: No rash visible on exposed skin areas, normal coloration & appears dry. Psych: Normal affect. Fluent speech. I spent a total of 20-29 minutes (exact time 23 mins) on the date of service in preparation, delivery, and documentation of the care provided to Gerri Shine excluding any time spent in the performance of separately billed services. Maria Fernanda Pisano MD [place] [address] [facility] [phone] documented in this encounter Plan of Treatment Upcoming Encounters Date Type Department Care Team (Late st Contact Info) Description 11/12/2023 9:00 AM EDT Office Visit [place] [address] [place] [address] Maria Fernanda Pisano MD [address] [place] [address] Scheduled Procedures Name Priority Associated Diagnoses Date/Ti me COLONOSCOPY FLEXIBLE PROXIMA L DIAGNOSTIC Recall Family history of colon cancer Scheduled Referrals Name Type Priority Associated Diagnoses Orde r Schedule HIGH RISK OSTEOPOROSIS CLINIC REFERRAL OP Referral Within 10 days (routine) Osteoporosis without current pathological fracture, unspecified osteoporosis type Ordered: 07/05/2023 Health Maintenance Due Date Last Done Comments Hepatitis B (1 of 3 - 3-dose series) 1969 HIV Screening 1984 Hepatitis C Screening 12/11/1987 *BISPHONATE OR OTHER ACCEPTABLE MEDICATION NEEDED FOR OSTEOPOROSIS (REFER TO SMARTSET #1146) 12/13/2019 Pneumococcal Vaccine: Pediatrics (0 to 5 Years) [...] 04/30/2028 04/30/2023, 09/2019, 07/11/2018, Additional history exists VITAMIN D LEVEL ONCE IN A LIFETIME-USE SMARTSET# 72233 Completed 07/11/2018, 06/30/2011 Zoster Vaccines Completed 06/11/2020, 05/26, 02/28/2020, Additional history exists GARDASIL-HPV IMMUNIZATION SERIES Aged Out No longer eligible based on patient's age to complete this topic MENINGOCOCCAL (MENACTRA/MENVEO) Aged Out No longer eligible based on patient's age to complete this topic documented as of this encounter Medical Devices Implanted Type Area Shear Scrapman Device Identifier Shelf Expiration Date Model / Serial / Lot Internal Brace Ligament Augmentaion Repair Implanted:Qty: 1 on 01/19/2019 by Nimisha Chin DPM at OR [facility] Right: Foot 11/22/2020 [id number] / / [id number] documented as of this encounter Visit Diagnoses Diagnosis Osteoporosis without current pathological fracture, unspecified osteoporosis type- Primary documented in this encounter Care Teams Court Magistrate Relationship Specialty Start Date End Date Maria Fernanda Pisano MD [address] [place] [address] PCP - General Family Medicine 03/23/22 documented as of this encounter
--- OUTSIDE RECORDS SUMMARY | 2023-11-03 09:33 | External Medical Summary ---
Author Name Unknown Address Unknown Organization [id number]:[facility] [address] [place] [address] Laboratory Report Ordering Provider Test Date Status NAY HERNANDEZ 07/23/2023 15:30:35 Final Observation Date Value Abnormality Reference (Units ) Status IgA 07/23/2023 15:30:35 250 70-400 (mg /dL) Final Performing Location [facility] [address] [place] [address]
--- OUTSIDE RECORDS SUMMARY | 2023-11-03 09:33 | External Medical Summary ---
Author Name Unknown Address Unknown Organization [id number]:[facility] - [facility] [address] [facility] [address] Laboratory Report Ordering Provider Test Date Status NAY HERNANDEZ 07/23/2023 15:30:35 Final Observation Date Value Abnormality Reference (Units ) Status WBC, Total 07/23/2023 15:30:35 7.66 4.00-10.80 (K/uL) Final RBC 07/23/2023 15:30:35 5.04 3.85-5.15 (M/uL) Final Hemoglobin 07/23/2023 15:30:35 14.9 12.0-15.3 (g/dL) Final HCT 07/23/2023 15:30:35 45.2 36.0-45.2 (%) Final MCV 07/23/2023 15:30:35 89.7 81.5-97.5 (fL) Final MCH 07/23/2023 15:30:35 29.6 27.0-34.0 (pg) Final MCHC 07/23/2023 15:30:35 33.0 32.0-36.0 (g/dL) Final RDW 07/23/2023 15:30:35 13.1 11.5-15.5 (%) Final Platelets 07/23/2023 15:30:35 316 140-400 (K/uL) Final MPV 07/23/2023 15:30:35 9.6 6.6-11.1 (fL) Final Nucleated erythrocytes/100 leukocytes [Ratio] in Blood by Automated count 07/23/2023 15:30:35 0 <=0 (/100 WBCs) Final Performing Location [facility] - [facility] [address] [place] [address]
--- OUTSIDE RECORDS SUMMARY | 2023-11-03 09:33 | External Medical Summary ---
Author Name Unknown Address Unknown Organization [id number]:LABORATORY [facility] - [facility] [address] [facility] [address] Laboratory Report Ordering Provider Test Date Status NAY HERNANDEZ 07/23/2023 15:30:35 Final Observation Date Value Abnormality Reference (Units) Status PARAPROTEIN NORMAL/ABNORMAL 07/23/2023 15:30:35 Normal Normal Final Protein 07/23/2023 15:30:35 6.7 6.0-8.3 (g/dL) Final Albumin/Protein.total [Pure mass fraction] in Serum or Plasma by Electrophoresis 07/23/2023 15:30:35 3.60 3.30-4.40 (g/dL) Final Alpha 1 globulin/Protein.tota l [Pure mass fraction] in Serum or Plasma by Electrophoresis 07/23/2023 15:30:35 0.18 0.10-0.30 (g/dL) Final Alpha 2 globulin/Protein.tota l [Pure mass fraction] in Serum or Plasma by Electrophoresis 07/23/2023 15:30:35 0.93 0.60-1.00 (g/dL) Final Beta globulin/Protein.tota l [Pure mass fraction] in Serum or Plasma by Electrophoresis 07/23/2023 15:30:35 1.03 0.80-1.30 (g/dL) Final Gamma globulin/Protein.tota l [Pure mass fraction] in Serum or Plasma by Electrophoresis 07/23/2023 15:30:35 0.97 0.70-1.70 (g/dL) Final Protein Fractions [Interpretation] in Serum or Plasma by Electrophoresis Narrative 07/23/2023 15:30:35 Normal serum protein electrophoretic pattern. Final Performing Location LABORATORY [facility] - [address] [facility] [address]
--- OUTSIDE RECORDS SUMMARY | 2023-11-03 09:33 | External Medical Summary ---
Author Name Unknown Address Unknown Organization [id number]:LABORATORY [facility] - [address] [facility] [address] Laboratory Report Ordering Provider Test Date Status NAY HERNANDEZ 07/23/2023 15:30:35 Final Observation Date Value Abnormality Reference (Units ) Status TSH 07/23/2023 15:30:35 0.99 0.27-4.20 (uIU/mL) Final Performing Location LABORATORY [facility] - [address] [facility] [address]
--- OUTSIDE RECORDS SUMMARY | 2023-11-03 09:33 | External Medical Summary | Summary of Care ---
Author Name Unknown Organization [facility] Address [address] [place] [address] Phone [phone] Care Team Providers Care Technical Sourcing Recruiter Name Role Phone Maria Fernanda Pisano MD Primary Care Provid er Reason for Visit * Reason Comments [facility] Follow-up * Evaluate & Treat - Unlimited Visits (Within 10 days (routine)) - Authorized Specialty Diagnoses / Procedures Referred By Contac t Referred To Contact Rheumatology Diagnoses Osteoporosis without current pathological fracture, unspecified osteoporosis type Maria Fernanda Pisano MD [address] [place] [address] Referral ID Status Reason Start Date Expiration Date Visits Requested Visits Authorized [id number] Authorized Specialty Services Required 3 01/10/2025 [id number] Encounter Details Date Type Department Care Team (Late st Contact Info) Description 07/23/2023 2:30 PM EST Office Visit Rheumatology, [place] [address] [place] [address] Georgie Hernandez MD [address] [place] [address] Age-related osteoporosis without current pathological fracture*; Encounter for therapeutic drug monitoring Allergies Active Allergy Reactions Criticality Noted Date [...] Sign Reading Time Taken Comments Blood Pressure - - Pulse - - Temperature - - Respiratory Rate - - Oxygen Saturation - - Inhaled Oxygen Concentration - - Weight 75.4 kg (166 lb 4.8 oz) 07/23/2023 2:14 P M EST Height 158.2 cm (5' 2.3") 07/23/2023 2:14 PM EST Body Mass Index 30.12 07/23/2023 2:14 PM EST documented in this encounter Patient Instructions * Patient Instructions* Georgie Hernandez MD - 07/23/2023 3:13 PM EST [facility] General Osteoporosis Education If for any reason, you need to stop your osteoporosis medication, please call the Department of Rheumatology to discuss this with someone from the [facility] Team. If its because of side effects, another doctor told you to stop, or you can no longer afford the medication, we need to know. We will work with you to find an alternate treatment to protect your bones. Normal Bone or Osteoporosis? Normal bone has tiny pores (holes) inside In osteoporosis, the pores in the bone get larger - the bone gets thinner and can easily break without warning signs. As a result, one can experience serious consequences such as chronic pain, disability, loss of independence and even , especially after hip fracture. Osteoporosis Prevention Healthy Lifestyle Choices - dont smoke, avoid excessive alcohol, eat a well balanced diet Calcium and Vitamin D - Generally take calcium 1500mg daily plus vitamin D 800 IU daily which is equal to: One calcium 600mg + D 200 IU twice a day and a daily multivitamin OR One calcium 600mg + D 400 IU twice a day Exercise - weight bearing at least 30 Minutes 3 x weekly Diet - Try to have two to three servings of calcium rich food per day Safety - Prevent Fractures: Good light Secure carpets Eliminate clutter Add grab bars in tub Use handrail on steps Mop up spills Walk steady-use cane or walker if needed Osteoporosis Diagnosis - DXA Scan Painless Determines your bone mineral density If low risk, work on osteoporosis prevention If high-risk, work on osteoporosis prevention and treatment If you take steroids (re: Prednisone) ? Up to 50% of patients taking steroids may develop osteoporosis ? Up to 50% of patients taking steroids for a long time, will fracture ? Treatment is effective at reducing fracture risk [facility] Examples of Calcium Rich Foods Goal is to get 1200 mg of calcium per day Food Milligrams (mg) per serving Yogurt, plain, low fat, 8 ounces 415 Mozzarella, part skim, 1.5 ounces 333 Sardines, canned in oil, with bones, 3 ounces 325 Yogurt, fruit, low fat, 8 ounces 313-384 Cheddar cheese, 1.5 ounces 307 Milk, nonfat, 8 ounces* 299 Soymilk, calcium-fortified, 8 ounces 299 Milk, reduced-fat (2% milk fat), 8 ounces 293 Milk, buttermilk, lowfat, 8 ounces 284 Milk, whole (3.25% milk fat), 8 ounces 276 [place] juice, calcium-fortified, 6 ounces 261 Tofu, firm, made with calcium sulfate, cup 253 [place], pink, canned, solids with bone, 3 ounces 181 Cottage cheese, 1% milk fat, 1 cup 138 Tofu, soft, made with calcium sulfate, cup 138 Inasm-gy-oda cereal, calcium-fortified, 1 cup 100-1,000 Frozen yogurt, vanilla, soft serve, cup 103 Turnip greens, fresh, boiled, cup 99 Kale, raw, chopped, 1 cup 100 Kale, fresh, cooked, 1 cup 94 Ice cream, vanilla, cup 84 Burkinan cabbage, bok love, raw, shredded, 1 cup 74 Bread, white, 1 slice 73 Pudding, chocolate, ready to eat, refrigerated, 4 ounces 55 Tortilla, corn, jggnk-of-kpjs/catherine, one 6" diameter 46 Tortilla, flour, raecx-el-hjjk/catherine, one 6" diameter 32 Sour cream, reduced fat, cultured, 2 tablespoons 31 Bread, whole-wheat, 1 slice 30 Broccoli, raw, cup 21 Cheese, cream, regular, 1 tablespoon 14 * Calcium content varies slightly by fat content; the more fat, the less calcium the food contains. Calcium content is for tofu processed with a calcium salt. Tofu processed with other salts does not provide significant amounts of calcium. Source: U.S. Dept of Health & Human Services, Office of Dietary Supplements, National Institutes of Health, Sources of Calcium Fact Sheet for Health Professionals. Dev. 32016 [facility] Examples of Vitamin D Rich Foods Goal is 800 IU per day Selected Food Sources of Vitamin D Food IUs per serving* Cod liver oil, 1 tablespoon 1360 Swordfish, cooked, 3 ounces 566 [place] (sockeye), cooked, 3 ounces 447 Tuna fish, canned in water, drained, 3 ounces 154 [place] juice fortified with vitamin D, 1 cup (check product labels, as amount of added vitamin D varies) 137 Milk, nonfat, reduced fat, and whole, vitamin D-fortified, 1 cup 115-124 Yogurt, fortified with 20% of the DV for vitamin D, 6 ounces (more heavily fortified yogurts provide more of the DV) 80 Margarine, fortified, 1 tablespoon 60 Sardines, canned in oil, drained, 2 sardines 46 Liver, beef, cooked, 3 ounces 42 Egg, 1 large (vitamin D is found in yolk) 41 Whmhs-ay-fap cereal, fortified with 10% of the DV for vitamin D, 0.75-1 cup (more heavily fortified cereals might provide more of the DV) 40 Cheese, Algerian, 1 ounce 6 * IUs = International Units. DV = Daily Value. DVs were developed by the U.S. Food and Drug Administration to help consumers compare the nutrient contents among products within the context of a total daily diet. Source: U.S Dept. of Health & Human Services, Office of Dietary Supplements, National Institutes of Health, Sources of vitamin D for Health Professions. Dev documented in this encounter Progress Notes * Georgie Hernandez MD - 07/23/2023 2:30 PM EST CONSULT - [facility] - baseline visit Supervised by: Dr. Georgie Hernandez HPI: Gerri Shine is a 52 year old female who is seen in consultation at the request of Maria Fernanda Pisano MD for evaluation of low bone density, osteoporosis and fracture risk reduction. REASON FOR CONSULT: High Risk DXA Scan (T-Score below -2.5) and need for alternative treatment. She has had DEXA scans since 2010 and was previously on fosamax x 1 year many years ago. PCP just started her on fosamax a few weeks ago and so far, she is tolerating the medication. She has had chronic vitamin D deficiency, but most recently vitamin D was 33. Had a total hysterectomy at age 27 due to adhesions from uterus to her bowel and pelvic cysts and adenomyosis. She was on premarin for many years until she stopped around age 49. Lost 40 lbs intentionally last year and exercising and has gained some of that backafter injuring her ankle. She is lactose intolerant and has some difficulty getting adequate calcium in her diet. She had a DXA scan performed on 06/10/2023 which reveals a T-score of -2.9 at the lumbar spine and a T-score of -1.7 at the total hip. Her Z-scores were <-1.0 below -1.0. Labs: Satisfactory: 25-OH Vitamin D calcium alkaline phosphatase creatinine Pending: TSH, SPEP, CBC/differential, calcium, PTH, TTG, urine calcium, urine creatinine BONE HEALTH SUMMARY: Risks: Family History Fx: No Personal History Fx: Yes, Fracture site: Wrist (after fall on ice in 2009); has had avulsion fracture of ankle and problems with tendon laxity and recurrent ankle sprains and will have repair soon Hospitalized for fracture: No Current Smoker: No Chronic Glucocorticoid use: No, does get injections in knees and ankles Rheumatoid Arthritis: No Alcohol 3 or more per day: No She has has lost 1 inches in height. She entered menopause at the age of 27 via a surgical menopause. She took estrogen replacement therapy for approximately 22 years stopping 3 years ago. She is active with usual activities of daily living. She is not prone to falls. She does not take any medications which predispose to falls. She does not use any assistive devices to ambulate. PREVIOUS MEDS: Fosamax; Reason for Discontinue - Patient unsure, number of years treated: approximately 1 year ROS: OSTEOPOROSIS PMH: Early menopause, before age 42 years [facility] PAST SURGICAL HISTORY: Bilateral Oophorectomy She is not bothered by GI reflux symptoms. She has not had previous thrombotic problems. She has had no previous history of hypercalcemia, hyperparathyroidism, Paget's disease, radiation to bone, or bone tumors. REVIEW OF SYSTEMS: . Constitutional: normal . Head normal . Eyes: normal . Ears, nose, throat, mouth: normal . Cardiovascular: normal . Respiratory: normal . Gastrointestinal: diarrhea secondary to IBS . Musculoskeletal: joint pain . Neurologic: normal . Skin: normal . Psychiatric: normal . Endocrine: normal . Hematologic/lymphatic: normal . Allergic/immunologic: normal . Genitourinary: normal Past Medical History: Diagnosis Date Allergic rhinitis [...] Racheal Montes De Oca MD at ENDOSCOPY [facility] FOLLOWUP REPAIR OF ANKLE LIGAMENT Right 01/19/2019 REPAIR SECONDARY LIGAMENT ANKLE COLLATERAL performed by Nimisha Chin DPM at OR [facility] INJ 1 TENDON SHEATH LIGAMENT Right 01/19/2019 INJECTION TENDON SHEATH OR LIGAMENT APONEUROSIS performed by Nimisha Chin DPM at OR [facility] TOTAL ABD HYSTERECTOMY W/WO REMOVAL OF TUBE(S) 1996 TOTAL HYSTERECTOMY Current Outpatient Medications Medication Sig Dispense Refill montelukast (SINGULAIR) 10 MG Tablet Take 1 Tab by mouth daily. 30 Tab 11 Cetirizine HCl 10 MG Oral Capsule Take 1 Capsule by mouth in the morning. cholecalciferol, VIT D3, (VITAMIN D3) 1000 UNITS Tablet Take 1 Tablet by mouth at bedtime. Albuterol Sulfate HFA 108 (90 Base) MCG/ACT [...] min after taking tablet. 15 Tablet 3 Meloxicam 15 MG Oral Tablet Take 1 Tab by mouth daily. for pain. (Patient not taking: Reported on 05/07/2023) 30 Tab 11 Mometasone Furoate 50 MCG/ACT Nasal Suspension (Nasonex) Administer 2 Sprays into each nostril daily. (Patient not taking: Reported on 09/22/2021) 17 g 6 No current facility-administered medications for this visit. Review of patient's allergies indicates: Allergen Reactions Chloraprep One Step [Chlorhexidine Gluconate] Itching and Rash Family Status Relation Status Son (Not Specified) Son (Not Specified) Sis (Not Specified) Sis (Not Specified) Mo (Not Specified) Fa (Not Specified) MGFA (Not Specified) MGMA (Not Specified) Social History Tobacco Use Smoking status: Former Packs/day: 0.50 Years: 2.00 Additional pack years: 0.00 Total pack years: 1.00 Types: Cigarettes Quit date: 07/26/1989 Years since quittin.0 Smokeless tobacco: Former Quit date: 1989 Tobacco comments: no passive smoke exposure Substance Use Topics Alcohol use: Yes Comment: rare; 1-2 drinks/month Vaping/E-Cigarette Use Vaping/E-Cigarette Substances Vaping/E-Cigarette Devices PHYSICAL EXAM: Ht 1.582 m (5' 2.3") | Wt 75.4 kg (166 lb 4.8 oz) | LMP 08/26/1996 | BMI 30.12 kg/m | BSA 1.82 m General: alert, healthy, well nourished, pleasant, no acute distress Head: normocephalic, atraumatic Eyes: sclera clear without injection or icterus, no redness Lungs: breathing non-labored Extremities: no clubbing, cyanosis, or edema Neuro: alert and answers questions appropriately Skin: intact without rashes, lesions or ulcerations, nails normal, no abnormal naifold capillaries or periungal erythema MUSCULOSKELETAL: no kyphosis IMPRESSION: Osteoporosis: Given her present T-score and risk factors, treatment with a pharmacological agent should be considered in order to reduce her fracture risk. Will complete secondary metabolic work-up for osteoporosis (see orders), but most likely related to early surgical menopause, lactose intolerance and history of vitamin D deficiency. Recommend continuing alendronate as long as she is able to tolerate that. ICD-10-CM 1. Age-related osteoporosis without current pathological fracture M81.0 2. Encounter for therapeutic drug monitoring Z51.81 Plan: Cbc with wbc differential Tsh with free t4 if indicated 25-hydroxy vitamin d Pth Serum protein electrophoresis reflex profile Tissue transglutaminase iga antibody Iga Calcium Creatinine Calcium, random urine Creatinine, random urine Previous treatment failed: none Previous treatment intolerant: none Renal disease contraindicating bisphosphonates: none GI Disease contraindicating oral bisphosphonates: none Bariatric Surgery contraindicating oral bisphosphonates: none PLANS: 1. We discussed this condition in detail. Issues regarding the nature of the condition, clinical manifestations, evaluation, and treatment were discussed. Questions were answered. 2. An adequate amount of calcium and vitamin D intake was emphasized via dietary or supplemental sources. 3. The benefits of exercise and muscle strengthening were reviewed. 4. Issues regarding safety and fall prevention were addressed. 5. Labs will be checked to evaluate for secondary causes of osteoporosis. calcium creatinine SPEP TSH PTH(intact) Urine Calcium Urine Creatinine TTG antibody 6. Continue alendronate 7. Continue vitamin D supplement 8. Obtain 1200 mg calcium per day through diet. She will do a food diary and let me know if not getting enough calcium through her diet, in which case a calcium supplement could be added. 7. Followup: DXA due 2 years from previous,Return to [facility] clinic in 1 year I spent a total of Greater than 55 mins (exact time 60 mins) on the date of service in preparation,delivery, and documentation of the care provided to Gerri Shine excluding any time spent in the performance of separately billed services. Georgie Hernandez MD documented in this encounter Nursing Notes * Angelika Cheng CMA - 07/23/2023 2:17 PM EST Patient was instructed to not get up on the exam table/exam chair until directed and assisted by their provider; patient is to remain seated in the chair/ wheelchair/ exam table/ exam chair for fall prevention and safety reasons. Patient is aware to have assistance to step down off exam table/exam chair with personnel. Patient voiced full comprehension of instructions. documented in this encounter Plan of Treatment Upcoming Encounters Date Type Department Care Team (Late st Contact Info) Description 11/12/2023 9:00 AM EDT Office Visit [facility] [address] [place] [id number] Maria Fernanda Pisano MD [address] [place] [address] Pending Results Name Type Priority Associated Diagnoses Date /Time CALCIUM, RANDOM URINE Lab Routine Age-related osteoporosis without current pathological fracture 07/23/2023 3:30 PM EST CREATININE, RANDOM URINE Lab Routine Age-related osteoporosis without current pathological fracture 07/23/2023 3:30 PM EST Scheduled Orders Name Type Priority Associated Diagnoses Orde r Schedule CBC WITH WBC DIFFERENTIAL Lab Routine Age-related osteoporosis without current pathological fracture Ordered: 07/23/2023 TSH WITH FREE T4 IF INDICATED Lab Routine Age-related osteoporosis without current pathological fracture Ordered: 07/23/2023 25-HYDROXY VITAMIN D Lab Routine Age-related osteoporosis without current pathological fracture Ordered: 07/23/2023 PTH Lab Routine Age-related osteoporosis without current pathological fracture Ordered: 07/23/2023 SERUM PROTEIN ELECTROPHORESIS REFLEX PROFILE Lab Routine Age-related osteoporosis without current pathological fracture Expected: 07/23/2023 (Approximate), Expires: 07/23/2024 TISSUE TRANSGLUTAMINASE IGA ANTIBODY Lab Routine Age-related osteoporosis without current pathological fracture Expected: 07/23/2023 (Approximate), Expires: 07/22/2024 IGA Lab Routine Age-related osteoporosis without current pathological fracture Expected: 07/23/2023 (Approximate), Expires: 07/22/2024 CALCIUM Lab Routine Age-related osteoporosis without current pathological fracture Expected: 07/23/2023, Expires: 07/23/2024 CREATININE Lab Routine Age-related osteoporosis without current pathological fracture Expected: 07/23/2023, Expires: 07/23/2024 CALCIUM, RANDOM URINE Lab Routine Age-related osteoporosis without current pathological fracture Expected: 07/23/2023, Expires: 07/23/2024 CREATININE, RANDOM URINE Lab Routine Age-related osteoporosis without current pathological fracture Expected: 07/23/2023, Expires: 07/23/2024 CBC Lab Routine Age-related osteoporosis without current pathological fracture Ordered: 07/23/2023 DIFFERENTIAL, AUTOMATED Lab Routine Age-related osteoporosis without current pathological fracture Ordered: 07/23/2023 Scheduled Procedures Name Priority Associated Diagnoses Date/Ti [...] D LEVEL ONCE IN A LIFETIME-USE SMARTSET# 41167 Completed 07/11/2018, 06/30/2011 Zoster Vaccines Completed 06/11/2020, 05/26, 02/28/2020, Additional history exists GARDASIL-HPV IMMUNIZATION SERIES Aged Out No longer eligible based on patient's age to complete this topic MENINGOCOCCAL (MENACTRA/MENVEO) Aged Out No longer eligible based on patient's age to complete this topic documented as of this encounter Medical Devices Implanted Type Area Veterinary Practice Manager Device Identifier Shelf Expiration Date Model / Serial / Lot Internal Brace Ligament Augmentaion Repair Implanted:Qty: 1 on 01/19/2019 by Nimisha Chin DPM at OR [facility] Right: Foot 11/22/2020 [id number] / / [id number] documented as of this encounter Visit Diagnoses Diagnosis Age-related osteoporosis without current pathological fracture- Primary Senile osteoporosis Encounter for therapeutic drug monitoring documented in this encounter Care Teams Technical Sourcing Recruiter Relationship Specialty Start Date End Date Maria Fernanda Pisano MD [address] [facility] [place] [address] PCP - General Family Medicine 03/23/22 documented as of this encounter
--- OUTSIDE RECORDS SUMMARY | 2023-11-03 09:33 | External Medical Summary ---
Author Name Unknown Address Unknown Organization [id number]:LABORATORY [facility] [place] - [address] [place] [address] Laboratory Report Ordering Provider Test Date Status NAY HERNANDEZ 07/23/2023 15:30:35 Final Observation Date Value Abnormality Reference (Units ) Status Calcium, Urine 07/23/2023 15:30:35 4.8 (mg/d L) Final Performing Location LABORATORY [facility] - [address] [place] [address]
--- OUTSIDE RECORDS SUMMARY | 2023-11-03 09:33 | External Medical Summary ---
Author Name Unknown Address Unknown Organization [id number]:LAB[facility]ATORY [facility] - [address] [place] [address] Laboratory Report Ordering Provider Test Date Status NAY HERNANDEZ 07/23/2023 15:30:35 Final Observation Date Value Abnormality Reference (Units ) Status Calcium 07/23/2023 15:30:35 9.5 8.4-10.2 ( mg/dL) Final Performing Location LABORATORY [facility] - [address] [place] [address]
--- OUTSIDE RECORDS SUMMARY | 2023-11-03 09:33 | External Medical Summary ---
Author Name Unknown Address Unknown Organization [id number][place] [place] [address] [place] [address] Laboratory Report Ordering Provider Test Date Status NAY HERNADNEZ 07/23/2023 15:30:35 Final Observation Date Value Abnormality Reference (Units ) Status Parathyrin.intact [Mass/volume] in Serum or Plasma 07/23/2023 15:30:35 61 15-65 (pg/mL) Final Performing Location [facility] [place] [address] [place] [address]
--- OUTSIDE RECORDS SUMMARY | 2023-11-03 09:33 | External Medical Summary ---
Author Name Unknown Address Unknown Organization [id number]:[facility] [place] [address] [place] [address] Laboratory Report Ordering Provider Test Date Status NAY HERNANDEZ 07/23/2023 15:30:35 Final Deficient: <20 ng/mL
Ins ufficient: 20-29 ng/mL
Recommended/Optimum:30-50 ng/mL

Vitamin D intoxication is rare. If suspicious of Vitamin D toxicity, evaluation of serum Calcium and PTH is recommended. Observation Date Value Abnormality Reference (Units ) Status 25-OH Vitamin D total 07/23/2023 15:30:35 31 >19 (ng/mL) Final Performing Location LAB[facility]ATORY [facility] - [address] [place] [address]
--- OUTSIDE RECORDS SUMMARY | 2023-11-03 09:33 | External Medical Summary ---
Author Name Unknown Address Unknown Organization [id number]:LABORATORY [facility] [place] - [facility] [address] [place] [address] Laboratory Report Ordering Provider Test Date Status NAY HERNANDEZ 07/23/2023 15:30:35 Final Observation Date Value Abnormality Reference (Units ) Status Creatinine 07/23/2023 15:30:35 0.7 0.5-1.0 (mg/dL) Final Glomerular filtration rate/1.73 sq M.predicted [Volume Rate/Area] in Serum, Plasma or Blood by Creatinine-based formula (CKD-EPI) 07/23/2023 15:30:35 >90 >=60 (mL/min) Final eGFR is calculated based on the CKD-EPI 2020 equation Performing Location LABORATORY [facility] [place] - [facility] [address] [place] [address]
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
--- OUTSIDE RECORDS SUMMARY | 2023-11-03 09:34 | External Medical Summary | Summary of Care ---
Author Name Unknown Organization [facility] Address [address] [address] [facility] [address] Phone [phone] Care Team Providers Care Chronic Specialist Name Role Phone Maria Fernanda Pisano MD Primary Care Provid er Encounter Details Date Type Department Care Team Description [facility] [address] [address] Maria Fernanda Pisano MD [address] [address] Allergies Active Allergy Reactions Severity Noted Date Comments Chlorhexidine Gluconate Itching,Rash 09/19/2013 documented as of this encounter (statuses as of 05/10/2023) Medications Medication Sig Dispensed Refills Start Date [...] as of this encounter (statuses as of 05/10/2023) Active Problems Problem Noted Date Prediabetes 05/07/2023 Vitamin D deficiency 03/23/2022 Avulsion of ligament with bony fragment 03/23/2022 Overview: Apr 28, 2023 Entered By: EVETTE GREENBERG Comment: History of left fibular ligament avulsion fracture Ankle instability 03/23/2022 Osteoporosis 03/23/2022 Irritable bowel syndrome 03/23/2022 Closed fracture of lateral malleolus Chronic instability of right knee 2021 Chondromalacia of right patella 03/23/20 22 Asymptomatic varicose veins 03/23/2022 History of total [...] as of this encounter (statuses as of 05/10/2023) Resolved Problems Problem Noted Date Resolved Date Asthma in remission 05/05/2021 05/05/2021 Asthma, mild persistent 05/05/2021 05/05/20 21 Asthma, moderate persistent 05/05/202104/25 Asthma, severe persistent [...] as of this encounter (statuses as of 05/10/2023) Immunizations Name Administration Dates Next Due COVID-19, [...] Encounters Date Type Specialty Care Team Description 06/10/2023 Imaging Radiology 11/12/2023 Office Visit Family Medicine Maria Fernanda Pisano MD [address] [place] [address] Scheduled Procedures Name Priority Associated Diagnoses Date/Ti [...] Additional history exists HbA1c 04/30/2024 04/30/2023, 02/26/2020 COLONOSCOPY-EVERY 5 YRS AGES 18-100 06/24/2026 06/24/2021, 06/24/2021, 07/23/2010 DTaP,Tdap,and Td Vaccines (4 - Td or Tdap) 10/02/2027 10/01/2017, 03/09/2008, 09/12/2007, Additional history exists Lipid Panel 04/30/2028 04/30/2023, 0809/2019, 07/11/2018, Additional history exists VITAMIN D LEVEL ONCE IN A LIFETIME-USE SMARTSET# [id number] Completed 07/11/2018, 06/30/2011 Zoster Vaccines Completed 06/11/2020, 05/26, 02/28/2020, Additional history exists GARDASIL-HPV IMMUNIZATION SERIES Aged Out No longer eligible based on patient's age to complete this topic MENINGOCOCCAL (MENACTRA/MENVEO) Aged Out No longer eligible based on patient's age to complete this topic documented as of this encounter Medical Devices Implanted Type Area Tire Shop Manager Device Identifier Shelf Expiration Date Model / Serial / Lot Internal Brace Ligament Augmentaion Repair Implanted:Qty: 1 on 01/19/2019 by Nimisha Chin DPM at OR [facility] Right: Foot 11/22/2020 [id number] / / [id number] documented as of this encounter Procedures Procedure Name Priority Date/Time Associated Diagnosis Comments CHEMISTRY-OUTSIDE Routine 04/30/2023 documented in this encounter Results * (ABNORMAL) CHEMISTRY-OUTSIDE (04/30/2023) Not all results display below - see scan for full detail OUTSIDE LAB (SEE SCANNED REPORT) Comment:SCAN INCL: [facility] BCD,UA,CMP, LIPIDS,HA1C, VIT D CREATININE-OUTSID E LAB 0.9 0.6 - 1.5 MG/DL OUTSIDE LAB (SEE SCANNED REPORT) EGFR-OUTSIDE LAB 69.6 ML/MIN OUT SIDE LAB (SEE SCANNED REPORT) POTASSIUM-OUTSIDE LAB 4.5 3.6 - 5.1 MMOL/L OUTSIDE LAB (SEE SCANNED REPORT) GLUCOSE-OUTSIDE LAB 101(A) 70 - 99 MG/DL OUTSIDE LAB (SEE SCANNED REPORT) HOURS FASTING OUTSID E LAB (SEE SCANNED REPORT) TRIGLYCERIDES-OUT SIDE LAB 137 <=150 MG/DL OUTSIDE LAB (SEE SCANNED REPORT) CHOLESTEROL-OUTSI DE LAB 255(A) <=200 MG/DL OUTSIDE LAB (SEE SCANNED REPORT) HDL-OUTSIDE LAB 55.6 40 - 60 MG/DL OUTSIDE LAB (SEE SCANNED REPORT) CHOL/HDL RATIO-OUTSIDE LAB OUTSIDE LA B (SEE SCANNED REPORT) LDL (CALCULATED)-OUTS [facility] 172(A) 5 - 100 MG/DL OUTSIDE LAB (SEE SCANNED REPORT) LDL (DIRECT MEASURE)-OUTSIDE LAB OUTSIDE LAB (SEE SCANNED REPORT) HEMOGLOBIN, T2S-[facility] 6.2 4.3 - 6.2 % OUTSIDE LAB (SEE SCANNED REPORT) PHOSPHORUS-OUTSID E LAB OUTSIDE LAB (SEE SCANNED REPORT) PTH-OUTSIDE LAB OUTS [facility] (SEE SCANNED REPORT) MICROALBUMIN RATIO-OUTSIDE LAB OUTSIDE LA B (SEE SCANNED REPORT) PROTEIN, UA-OUTSIDE LAB OUTSIDE LAB (SEE SCANNED REPORT) HEMOGLOBIN-OUTSID E LAB 14.0 11.7 - 16.4 G/DL OUTSIDE LAB (SEE SCANNED REPORT) 04/30/2023 History Per Patient LABORATORY OUTSIDE LAB (SEE SCANNED REPORT) documented in this encounter Care Teams Chronic Specialist Relationship Specialty Start Date End Date Maria Fernanda Pisano MD [address] [place] [facility] [place] [address] PCP - General Family Medicine 03/23/22 documented as of this encounter
[2023-11-03 13:49] LABS: ANTI-Xa, UFH(UnfractionatedHep 0.35 IU/ml (0.3-0.7)
--- NOTE | 2023-11-03 16:35 | Discharge Summary ---
Discharge Summary Date of Service November 03, 2023 Notes For Next Care Provider Medication Changes From Visit Heparin Drip iso PE Admission HPI Per Admitting Provider History obtained from patient, family, and records. Medical history significant for hyperlipidemia, bronchial asthma, prediabetes, IBS, neuropathy as per records, past tobacco abuse. Patient underwent left ankle surgery at the [facility] in [place] last month. Trying to keep active as possible despite some limitations. Patient completed 2 weeks of Lovenox injections for DVT prophylaxis as per her account. 1 week history of chest tightness, some wheezing, palpitations, and elevated heart rate at home. No actual cough symptoms as per patient. Patient thought it might be an unusual asthma attack. No unusual leg swelling. Patient seen at PCPs office yesterday. Prednisone and Z-Ojvany course prescribed for possible complicated bronchitis. Patient consulted ER for worsening symptoms. IV heparin initiated at the ER for PE with strain. No prior personal history/known family history of blood clots as per patient. Medical History as above Surgical History : [place], foot surgery Family History : Negative blood clots; alcoholism, bronchial asthma, DM, stroke Personal/Social history : Past tobacco abuse, rare EtOH intake, office work Admission Exam Per Admitting Provider GENERAL: Comfortable, pleasant, obese, slightly anxious, no respiratory distress SKIN: Normal color, warm HEENT: [place] palpebral conjunctivae, no ptosis, moist buccal mucosa NECK : Supple, no tenderness CHEST : CTA, no tenderness HEART : RRR, no obvious murmurs ABDOMEN: Some distention, nontender EXTREMITIES : No LE swelling, minimal LLE tenderness, no other conspicuous deformities noted NEUROLOGIC : Coherent, no facial asymmetry, no other gross focality Principal Dx & Hospital Course #1 = Principal Diagnosis (1) Pulmonary embolism: PE with strain Initial occurrence Provoked event given recent ankle surgery Low risk on PESI score Rule out LE clot as source Troponin elevation secondary to above hyperlipidemia, statin Rx bronchial asthma, symptoms initially attributed to possible asthma exacerbation. Prediabetes, hemoglobin A1c of 6.1 today past tobacco abuse PCU IV heparin Follow troponin TTE re: PE with strain Follow LE venous Dopplers Pulmonary consult re: PE with strain Stop outpatient Z-Jovany and prednisone course prescribed for possible asthma exacerbation DVT prophylaxis. Heparin Full code Text document was generated using [employer] voice recognition software. It may contain grammatical or spelling errors. Kindly contact undersigned for clarification of any documentation item in question. Plan Ms. Shine is a 52 year old woman with history of exercise induced asthma, prediabetes with neuropathy, IBS and recent left ankle procedure at [facility] on 10/03 who is admitted for evaluation and management of bilateral pulmonary emboli with concerns for right heart strain. Imaging revealed near occlusive DVT of left deep veins in lower extremity. ECHO revealed signs of right heart failure with PASP 48mmhg. Intervention not able to be performed at this facility, therefore transfer to [facility] pursued and accepted. #Bilateral Pulmonary Emboli with c/f right heart strain #Cor pulmonale #Left Lower extremity DVT BNP 325 ECHO severe right ventriclar dilation/septal flattening Heparin drip ongoing Pulmonary consult -Plan for 3-6 months AC upon discharge Send for apixaban: [facility] via [facility] for IR specialist eval for catheter directed thrombolysis PCU to PCU transfer #Sinus Tachycardia #Elevated Troponin, likely demand ischemia 2/2 pulmonary emboli Troponin elevated 1472-->871.6 No acute concerns for ACS at this time #Asthma Stable albuterol prn #Prediabetes A1C 11/02 6.1% Counseled on lifestyle, reports improving exercise once ankle/mobility improved #Neuropathy Continue gabapentin 200mg BID #HLD continue statin DVT Heparin ACLS transfer Discharge Exam Constitutional WD/WN, vitals as above Respiratory normal respiratory effort, lungs clear to auscultation (SOB on position change) Cardiovascular tachcardic Updated Medication List Medication Instructions Recorded Confirmed Type albuterol sulfate 90 mcg/actuation 2 puff inhalation Q6 PRN Shortness 11/02/23 11/02/23 History aerosol inhaler Of Breath Or Wheezing alendronate 70 mg tablet 70 mg PO WK 11/02/23 11/02/23 History atorvastatin 20 mg tablet 20 mg PO QPM 11/02/23 11/02/23 History azithromycin 250 mg tablet 25 mg PO UD 11/02/23 11/02/23 History cholecalciferol (vitamin D3) 25 50 mcg PO QPM 11/02/23 11/02/23 History mcg (1,000 unit) tablet (Vitamin D3) gabapentin 100 mg capsule 200 mg PO BID 11/02/23 11/02/23 History meloxicam 15 mg tablet 15 mg PO DAILY PRN Pain 11/02/23 11/02/23 History montelukast 10 mg tablet 10 mg PO PM 11/02/23 11/02/23 History apixaban 5 mg tablet 5 mg PO BID #74 tabs 11/03/23 Rx Hospital Stay Data Consultations 11/02/23 20:16 ED Decision to Admit Stat 11/02/23 23:50 Consult Pulmonology Routine Diagnostic Imagining Performed 11/02/23 18:03 CT angio chest PE protocol Stat US venous doppler LE LT Stat Pending Results Patient Have Any Pending Studies at Discharge: No Discharge Instructions Given to Patient (Per Discharging Provider) You were admitted with shortness of breath and found to have bilateral pulmonary emboli from thrombosis in left lower extremity. You were started on heparin drip. ECHO of your heart revealed signs of right heart strain, with dilated Right ventricle and PASP 48mmhg. Given signs of heart strain, you will be transferred to [facility]. Total Time Total Time Spent Total Time Spent (In Minutes): 45
[2023-11-03] MEDS ORDERED: MONTELUKAST SODIUM 10 MG TABLET PO SCH (21:00)
[2023-11-03] MEDS ORDERED: ATORVASTATIN 20 MG TAB PO SCH (21:00)
--- NOTE | 2023-11-04 23:12 | Electrocardiogram Report ---
Test Reason : Blood Pressure : / mmHG Vent. Rate : 122 BPM Atrial Rate : 122 BPM P-R Int : 136 ms QRS Dur : 094 ms QT Int : 300 ms P-R-T Axes : 056 -81 033 degrees QTc Int : 427 ms Sinus tachycardia Incomplete right bundle branch block Left anterior fascicular block Inferior infarct , age undetermined Anterior infarct , age undetermined Abnormal ECG No previous ECGs available Confirmed by Rudy Holguin ([id number]) on 11/04/2023 11:12:21 PM Referred By: REFERRED SELF Confirmed By:Rudy Holguin
--- NOTE | 2023-11-04 23:13 | Electrocardiogram Report ---
Test Reason : Blood Pressure : / mmHG Vent. Rate : 090 BPM Atrial Rate : 090 BPM P-R Int : 138 ms QRS Dur : 094 ms QT Int : 382 ms P-R-T Axes : 034 -26 003 degrees QTc Int : 467 ms Normal sinus rhythm Inferior infarct (cited on or before 02-NOV-2023) T wave abnormality, consider anterior ischemia T wave abnormality, consider inferior ischemia Abnormal ECG When compared with ECG of 02-NOV-2023 18:29, Incomplete right bundle branch block is no longer Present Inverted T waves have replaced nonspecific T wave abnormality in Inferior leads T wave inversion now evident in Anterior leads Confirmed by Rudy Holguin ([id number]) on 11/04/2023 11:13:10 PM Referred By: REFERRED SELF Confirmed By:Rudy Holguin
== END 2023-11-03 21:30 | DRG 299 ==
LOC: ED 17:56 → EDINP 22:48 → SUATTDRO 22:48 → 1E 23:32